=== PATIENT | male | born 1960 | race African-American/Black ===

== ENCOUNTER 2016-09-27 02:28 | Inpatient (IN) | payer OTHER ==
[2016-09-27] MEDS ORDERED: NORMAL SALINE 500 ML IV ONE (02:47)
[2016-09-27] MEDS ORDERED: MORPHINE SULFATE 10 MG/ML INJ IV ONE (02:48)
--- NOTE | 2016-09-27 02:53 | ER Document Report ---
ED General - General Chief Complaint: Shortness Of Breath Stated Complaint: SHORTNESS OF BREATH Time Seen by Provider: 09/27/16 02:41 Notes: Patient is a 56-year-old male who presents with complaint of a few days of pain throughout his back. He says is initially his left upper back but now the pain came on the way down into his lower back. He says it hurts to twist or turn or move. He does complain of some shortness of breath but says he is short of breath because it hurts to take in a deep breath. No abdominal pain. No chest pain. No fevers. No vomiting. No diarrhea. He does have history of chronic kidney disease. He is followed by Dr. Nam. His primary care doctor is Dr. Richards. He has never required dialysis. He has been outside mowing the yard but does not think he became overheated. TRAVEL OUTSIDE OF THE [place] IN LAST 30 DAYS: No - Related Data Allergies/Adverse Reactions: doxycycline Allergy (Verified 09/27/16 02:36) Past Medical History - Social History Smoking Status: Never Smoker Frequency of alcohol use: None Drug Abuse: None Family History: Reviewed & Not Pertinent - Past Medical History Cardiac Medical History: Reports: Hx Hypertension Pulmonary Medical History: Denies: Hx Tuberculosis Renal/ Medical History: Denies: Hx Peritoneal Dialysis GI Medical History: Reports: Hx Gastroesophageal Reflux Disease Musculoskeltal Medical History: Reports Hx Musculoskeletal Deformity - cyst left wrist Traumatic Medical History: Reports: Hx Fractures - right hand Past Surgical History: Denies: Hx Pacemaker - Immunizations Immunizations up to date: Yes Hx Diphtheria, Pertussis, Tetanus Vaccination: Yes Review of Systems - Review of Systems Notes: My Normal Review Basic REVIEW OF SYSTEMS: CONSTITUTIONAL : Denies fever, chills, or sweats. Denies recent illness. EENT: Denies eye, ear, throat, or mouth pain or symptoms. Denies nasal or sinus congestion. CARDIOVASCULAR: Denies chest pain. RESPIRATORY: Some splinting of breathing. GASTROINTESTINAL: Denies abdominal pain. Denies nausea, vomiting, or diarrhea. Denies constipation. Last BM: GENITOURINARY: Denies difficulty urinating, painful urination, burning, frequency, or blood in urine. MUSCULOSKELETAL: Back pain SKIN: Heat rash type rash on upper extremities and torso. NEUROLOGICAL: Denies altered mental status or loss of consciousness. Denies headache. Denies weakness or paralysis or loss of use of either side. Denies problems with gait or speech. Denies sensory or motor loss. ALL OTHER SYSTEMS REVIEWED AND NEGATIVE. Physical Exam - Vital signs Vitals: Temp Pulse Resp BP Pulse Ox 98.2 F 100 22 H 134/89 H 99 09/27/16 02:32 09/27/16 02:32 09/27/16 02:32 09/27/16 02:32 09/27/16 02:32 - Notes Notes: General Appearance: Well nourished, alert, cooperative, no acute distress, moderate obvious discomfort. Vitals: reviewed, See vital signs table. Head: no swelling or tenderness to the head Eyes: PERRL, EOMI, Conjuctiva clear Mouth: No decreasd moisture Neck: Supple, no neck tenderness, Lungs: No wheezing, No rales, No rhonci, No accessory muscle use, good air exchange bilaterally. Heart: Normal rate, Regular rythm, No murmur, no rub Abdomen: Normal BS, soft, No rigidity, No flank or abdominal tenderness to palpation. No guarding, no rebound, no abdominal masses, no organomegaly Back: Pain to palpation over bilateral thoracic and lumbar paraspinal musculature. Patient has worsening pain if he tries to twist or move. Extremities: strength 5/5 in all extremities, good pulses in all extremities, no swelling or tenderness in the extremities, no edema. Skin: Patient has several very tiny pustule vesicle type rash of her extremities and torso consistent with that of inflamed sweat glands such as seen with a heat rash. Neuro: speech clear, oriented x 3, normal affect, responds appropriately to questions. Course - Re-evaluation Re-evalutation: 09/27/16 06:04 Patient is feeling some improvement after the IV fluids. My concern is that he is already at stage IV kidney disease and his creatinine is much worse than it typically is. I have given IV fluids. I suspect this may be due to dehydration. His back pain is improving. I will give him some magnesium with his magnesium is only 1.6. Urinalysis negative. He has no signs of infection on exam or on laboratory evaluation. He only has a mild leukocytosis of 12. Patient agrees with thing in the hospital for further rehydration and recheck his kidney function to make sure it is improving. I did speak with his primary care physician, Dr. Richards, who agrees to admit the patient. Dictation of this chart was performed using voice recognition software; therefore, there may be some unintended grammatical errors. - Vital Signs Vital signs: Temp Pulse Resp BP Pulse Ox 98.2 F 100 20 152/88 H 100 09/27/16 02:36 09/27/16 02:48 09/27/16 05:01 09/27/16 05:07 09/27/16 05:07 - Laboratory Result Diagrams: 09/27/16 03:14 09/27/16 03:14 Laboratory results interpreted by me: 09/27/16 09/27/16 09/27/16 03:14 03:14 05:10 WBC 12.0 H RBC 3.73 L Hgb 10.8 L Hct 35.0 L MCHC 30.9 L Absolute Neutrophils 8.6 H Potassium 5.1 H Chloride 109 H Carbon Dioxide 19 L BUN 51 H Creatinine 4.63 H Est GFR ( Amer) 16 L Est GFR (Non-Af Amer) 13 L Glucose 132 H AST 16 L Creatine Kinase 204 H Urine Protein >=500 H - EKG Interpretation by Me Additional EKG results interpreted by me: 09/27/16 03:35 EKG is reviewed and interpreted by me. EKG shows normal sinus rhythm with a rate of [address] segment elevation or depression. No ischemic T-wave inversions. IN interval, QRS duration, QTc intervals are within normal range. Old EKG for comparison is from March 10, 2012. Discharge - Discharge Clinical Impression: Dehydration Back pain Qualifiers: Back pain location: thoracic back pain Chronicity: acute Back pain laterality: bilateral Qualified Code(s): M54.6 - Pain in thoracic spine Acute on chronic renal failure Qualifiers: Acute renal failure type: unspecified Chronic kidney disease stage: stage 4 ( severe) Qualified Code(s): N17.9 - Acute kidney failure, unspecified; N18.4 - Chronic kidney disease, stage 4 (severe) Condition: Stable Disposition: ADMITTED OBSERVATION Admitting Provider: Maurice Unit Admitted: Telemetry
[2016-09-27 03:26] LABS: ABSOLUTE BASOPHILS # (AUTO) 0.1 10^3/uL (0.0-0.2); ABSOLUTE EOSINOPHILS # (AUTO) 0.3 10^3/uL (0.0-0.6); ABSOLUTE NEUT (AUTO) 8.6 10^3/uL (1.7-8.2); BASOPHILS % (AUTO) 0.7 % (0-2); EOSINOPHILS % (AUTO) 2.2 % (0-6); HEMOGLOBIN 10.8 g/dL (13.5-17.0); HGB HCT DIFFERENCE -2.6; LYMPHOCYTES % (AUTO) 16.9 % (13-45); MEAN CORPUSCULAR HGB CONC 30.9 g/dL (32.0-36.0); MEAN CORPUSCULAR VOLUME 94 fl (80-97); MONOCYTES % (AUTO) 8.2 % (3-13); RED BLOOD COUNT 3.73 10^6/uL (4.35-5.55); RED CELL DISTRIBUTION WIDTH 13.2 % (11.5-14.0)
[2016-09-27 03:42] LABS: ALANINE AMINOTRANSFERASE 26 U/L (21-72); ALKALINE PHOSPHATASE 108 U/L (38-126); ANION GAP 14 (5-19); ASPARTATE AMINO TRANSFERASE 16 U/L (17-59); BILIRUBIN,DIRECT 0.3 mg/dL (0.0-0.4); BILIRUBIN,TOTAL 0.6 mg/dL (0.2-1.3); BLOOD UREA NITROGEN 51 mg/dL (7-20); CALCIUM 9.1 mg/dL (8.4-10.2); CARBON DIOXIDE 19 mmol/L (22-30); CHLORIDE 109 mmol/L (98-107); CREATINE KINASE 204 U/L (55-170); CREATININE RESULT 4.63 mg/dL (0.52-1.25); GLUCOSE 132 mg/dL (75-110); MAGNESIUM 1.6 mg/dL (1.6-2.3); POTASSIUM 5.1 mmol/L (3.6-5.0); SODIUM 141.5 mmol/L (137-145); TOTAL PROTEIN 7.5 g/dL (6.3-8.2)
--- NOTE | 2016-09-27 04:00 | RADIOLOGY REPORT (SQ) ---
EXAM DESCRIPTION: CHEST SINGLE VIEW COMPLETED DATE/TIME: 09/27/2016 3:46 am REASON FOR STUDY: dyspnea COMPARISON: 03/10/2012. EXAM PARAMETERS: NUMBER OF VIEWS: One view. TECHNIQUE: Single frontal radiographic view of the chest acquired. RADIATION DOSE: NA LIMITATIONS: None. FINDINGS: LUNGS AND PLEURA: No opacities, masses or pneumothorax. No pleural effusion. Moderate khurram g volumes. Small right basilar atelectasis or scar. MEDIASTINUM AND HILAR STRUCTURES: No masses. Contour normal. HEART AND VASCULAR STRUCTURES: Heart normal in size. Normal vasculature. BONES: No acute findings. HARDWARE: None in the chest. OTHER: No other significant finding. IMPRESSION: NO ACUTE RADIOGRAPHIC FINDING IN THE CHEST. TECHNICAL DOCUMENTATION: JOB ID: [id number]
[2016-09-27] MEDS ORDERED: MAGNESIUM SULFATE/D5W 100 ML IV ONE (05:05)
[2016-09-27] MEDS ORDERED: NORMAL SALINE 1000 ML 1,000 ML IV ONE (05:05)
[2016-09-27 05:31] LABS: APPEARANCE,URINE CLEAR; BILIRUBIN,URINE NEGATIVE (NEGATIVE); GLUCOSE, URINE NEGATIVE (NEGATIVE); KETONES,URINE NEGATIVE (NEGATIVE); LEUKOCYTE ESTERASE,URINE NEGATIVE (NEGATIVE); NITRITE,URINE NEGATIVE (NEGATIVE); PROTEIN,URINE >=500 mg/dL (NEGATIVE); URINE SPECIFIC GRAVITY 1.009; UROBILINOGEN,URINE NEGATIVE mg/dL (<2.0)
--- NOTE | 2016-09-27 07:25 | RADIOLOGY REPORT (SQ) ---
EXAM DESCRIPTION: CT ABD/PELVIS NO ORAL OR IV COMPLETED DATE/TIME: 09/27/2016 6:56 am REASON FOR STUDY: back pain/renal failure/r/o kidny stone COMPARISON: 10.07.09 TECHNIQUE: CT scan of the abdomen and pelvis performed without intravenous or oral contrast. Images reviewed with lung, soft tissue, and bone windows. Reconstructed coronal and sagittal MPR images revi ewed. All images stored on PACS. All CT scanners at this facility use dose modulation, iterative reconstruction, and/or weight based d osing when appropriate to reduce radiation dose to as low as reasonably achievable (ALARA). [facility]: Dose Right [facility]: CareDose [facility]: Dose Right [facility]: Teradose 4D [facility]: [employer] RADIATION DOSE: Up-to-date CT equipment and radiation dose reduction techniques were employed. CTDIv ol: 16.0 mGy. DLP: 913 mGy-cm.mGy. LIMITATIONS: None. FINDINGS: LOWER CHEST: Small atelectasis or scar bilateral lower lobes. NON-CONTRASTED LIVER, SPLEEN, ADRENALS: Evaluation limited by lack of IV contrast. No identified sign ificant masses. Punctate calcified hepatic granuloma. PANCREAS: No masses. No peripancreatic inflammatory changes. GALLBLADDER: No identified stones by CT criteria. No inflammatory changes to suggest cholecystitis. RIGHT KIDNEY AND URETER: No suspicious masses. Assessment limited by lack of IV contrast. No signif icant calcifications. No hydronephrosis or hydroureter. LEFT KIDNEY AND URETER: No suspicious masses. Assessment limited by lack of IV contrast. No signifi cant calcifications. No hydronephrosis or hydroureter. AORTA AND RETROPERITONEUM: No aneurysm. No retroperitoneal masses or adenopathy. Atherosclerosis. BOWEL AND PERITONEAL CAVITY: No obvious masses or inflammatory changes. No free fluid. APPENDIX: Normal. PELVIS, BLADDER, AND ABDOMINAL WALL:No abnormal masses. No free fluid. Bladder normal. BONES: Small to moderate desiccated disc bulges of the lower lumbar spine, 0.3 cm degenerative L5 ret rolisthesis, secondary [id number] bilateral L5 foraminal stenosis, and minimal anterior vertebr al wedging at the thoracolumbar junction. OTHER: No other significant finding. IMPRESSION: No acute findings. TECHNICAL DOCUMENTATION: JOB ID: [id number] Quality ID # [id number]: Final reports with documentation of one or more dose reduction techniques (e.g., Au tomated exposure control, adjustment of the mA and/or kV according to patient size, use of iterative reconstruction technique) 2010 [employer]- All Rights Reserved
--- NOTE | 2016-09-27 08:16 | EKG REPORT ---
SEVERITY:- NORMAL ECG - SINUS RHYTHM : Confirmed by: Buck Turpin MD 27-Sep-2016 08:15:49
--- NOTE | 2016-09-27 08:18 | PDOC H&P ---
History of Present Illness Admission Date/PCP: 09/27/16 06:21 JUDY RILEY MD Patient complains of: Back pain and shortness of the breath History of Present Illness: MARGE ORTEGA is a 56 year old male This is a 56-year-old male with a history of the hypertension and chronic kidney disease stage III and currently see a Dr. Nam was working outside on a TuesdayAnd the patient's for dehydration's and started developing some cramps in the back pain and the patient's rested on Tuesday but again Tuesday patient started developing more back pain and patient is not feeling well and also noticed some shortness of the breath and the chest pain. 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 Nam in the last creatinine according to the patient was around 3 Patient's currently denied any chest pain but still complains of pain in the back of the shoulder blade and feeling some short of breath . Patient's CT abdomen and pelvis was negative for any kidney stones Patient initial EKG chest x-ray is also negative Patient creatinine is 4.5 Past Medical History Cardiac Medical History: Reports: Hypertension Pulmonary Medical History: Denies: Tuberculosis Renal/ Medical History: Reports: Chronic Kidney Disease, Nephrolithiasis GI Medical History: Reports: Gastroesophageal Reflux Disease Past Surgical History Past Surgical History: Denies: Pacemaker Social History Smoking Status: Never Smoker Hx Recreational Drug Use: No Hx Prescription Drug Abuse: No Family History Family History: Reviewed & Not Pertinent Parental Family History Reviewed: Yes Children Family History Reviewed: Yes Sibling(s) Family History Reviewed.: Yes Medication/Allergy Allergies/Adverse Reactions: doxycycline Allergy (Verified 09/27/16 02:36) Review of Systems Constitutional: ABSENT: chills, fever(s), headache(s), weight gain, weight loss Eyes: ABSENT: visual disturbances Ears: ABSENT: hearing changes Cardiovascular: PRESENT: chest pain. ABSENT: dyspnea on exertion, edema, orthropnea, palpitations Respiratory: PRESENT: dyspnea. ABSENT: cough, hemoptysis Gastrointestinal: ABSENT: abdominal pain, constipation, diarrhea, hematemesis, hematochezia, nausea, vomiting Genitourinary: ABSENT: dysuria, hematuria Musculoskeletal: ABSENT: joint swelling Integumentary: ABSENT: rash, wounds Neurological: ABSENT: abnormal gait, abnormal speech, confusion, dizziness, focal weakness, syncope Psychiatric: ABSENT: anxiety, depression, homidical ideation, suicidal ideation Endocrine: ABSENT: cold intolerance, heat intolerance, menstrual abnormalities, polydipsia, polyuria Hematologic/Lymphatic: ABSENT: easy bleeding, easy bruising, lymphadenopathy Physical Exam Vital Signs: Temp Pulse Resp BP Pulse Ox 98.2 F 100 20 152/88 H 100 09/27/16 02:36 09/27/16 02:48 09/27/16 05:01 09/27/16 05:07 09/27/16 05:07 General appearance: PRESENT: no acute distress, well-developed, well-nourished Head exam: PRESENT: atraumatic, normocephalic Eye exam: PRESENT: conjunctiva pink, EOMI, PERRLA. ABSENT: scleral icterus Ear exam: PRESENT: normal external ear exam Mouth exam: PRESENT: moist, tongue midline Neck exam: PRESENT: full ROM. ABSENT: carotid bruit, JVD, lymphadenopathy, thyromegaly Respiratory exam: PRESENT: clear to auscultation richard Cardiovascular exam: PRESENT: RRR. ABSENT: diastolic murmur, rubs, systolic murmur Pulses: PRESENT: normal dorsalis pedis pul, +2 pedal pulses bilateral Vascular exam: PRESENT: normal capillary refill GI/Abdominal exam: PRESENT: normal bowel sounds, soft. ABSENT: distended, guarding, mass, organolmegaly, rebound, tenderness Rectal exam: PRESENT: deferred Neurological exam: PRESENT: alert, awake, oriented to person, oriented to place , oriented to time, oriented to situation, CN II-XII grossly intact. ABSENT: motor sensory deficit Psychiatric exam: PRESENT: appropriate affect, normal mood. ABSENT: homicidal ideation, suicidal ideation Skin exam: PRESENT: dry, intact, warm. ABSENT: cyanosis, rash Results Impressions: Abdomen/Pelvis CT 09/27/16 00:00 IMPRESSION: No acute findings. Chest X-Ray 09/27/16 03:19 IMPRESSION: NO ACUTE RADIOGRAPHIC FINDING IN THE CHEST. Assessment & Plan - Diagnosis (1) Acute on chronic renal failure Qualifiers: Acute renal failure type: unspecified Chronic kidney disease stage: stage 4 (severe) Qualified Code(s): N17.9 - Acute kidney failure, unspecified; N18.9 - Chronic kidney disease, unspecified Is this a current diagnosis for this admission?: YesPlan: Start the patient on IV fluid most likely underlying dehydration's (2) Shortness of breath Is this a current diagnosis for this admission?: YesPlan: Most likely due to the underlying back issues will get the CT of the chest and will check the pulse ox in the walking (3) Chest pain Qualifiers: Chest pain type: unspecified Qualified Code(s): R07.9 - Chest pain, unspecified Is this a current diagnosis for this admission?: YesPlan: Patient is complaining of chest pain when take a deep breath most likely underlying pluritic pain but will rule out any acute coronary syndromes (4) Hypertension Qualifiers: Hypertension type: essential hypertension Qualified Code(s): I10 - Essential (primary) hypertension Is this a current diagnosis for this admission?: YesPlan: Continues to current medications (5) Chronic kidney disease Qualifiers: Chronic kidney disease stage: stage 3 (moderate) Qualified Code(s): N18.3 - Chronic kidney disease, stage 3 (moderate) Is this a current diagnosis for this admission?: YesPlan: Patients follow outpatient Dr. 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 More discussed with the patient about all plan
--- NOTE | 2016-09-27 09:03 | RADIOLOGY REPORT (SQ) ---
EXAM DESCRIPTION: CT CHEST WITHOUT COMPLETED DATE/TIME: 09/27/2016 8:46 am REASON FOR STUDY: chest pain/sob COMPARISON: None. TECHNIQUE: CT scan performed of the chest without intravenous contrast. Images reviewed with lung, soft tissue and bone windows. Reconstructed coronal and sagittal MPR images reviewed. All images st ored on PACS. All CT scanners at this facility use dose modulation, iterative reconstruction, and/or weight based d osing when appropriate to reduce radiation dose to as low as reasonably achievable (ALARA). [facility]: Dose Right [facility]: CareDose [facility]: Dose Right [facility]: Teradose 4D [facility]: [employer] RADIATION DOSE: Up-to-date CT equipment and radiation dose reduction techniques were employed. CTDIv ol: 16.1 mGy. DLP: 627 mGy-cm. mGy. LIMITATIONS: No technical limitations. FINDINGS: LUNGS AND PLEURA: 3 x 6 mm nodule in the right upper lobe adjacent to the major fissure. No infiltrates or pneumothorax. Mild linear basilar atelectasis/scarring. No pleural effusions, yanet cifications. HILAR AND MEDIASTINAL STRUCTURES: No identified masses or abnormal nodes. No obvious aneurysm. HEART AND VASCULAR STRUCTURES: No aneurysm. No pericardial effusion. UPPER ABDOMEN: No significant findings. Limited exam. THYROID AND OTHER SOFT TISSUES: No masses. No adenopathy. BONES: No significant finding. HARDWARE: None in the chest. OTHER: No other significant findings. IMPRESSION: SMALL NODULE IN THE RIGHT UPPER LOBE. FOLLOW-UP CLINICALLY INDICATED. NO ACUTE FIND ING ON NON-CONTRASTED CHEST CT. COMMENT: [place] CRITERIA FOR FOLLOW-UP OF PULMONARY NODULES Incidentally detected new nodules in persons 35 or older. HIGH RISK: History of smoking or other known risk factors. 6-8mm single solid nodule: LOW RISK: CT 6-12 mo; then consider CT 18-24 mo. HIGH RISK: CT 6-12 mo; th en CT 18-24 mo. TECHNICAL DOCUMENTATION: JOB ID: [id number] Quality ID # [id number]: Final reports with documentation of one or more dose reduction techniques (e.g., Au tomated exposure control, adjustment of the mA and/or kV according to patient size, use of iterative reconstruction technique) 2010 [employer]- All Rights Reserved
[2016-09-27] MEDS: OXYCODONE-ACETAMINOPHEN 5-325 MG TABLET PO PRN ×3 (09:47→22:34)
[2016-09-27] MEDS: ENOXAPARIN SODIUM INJ 30 MG/0.3 ML DISP.SYRIN SUBCUT SCH (09:49)
[2016-09-27 10:03] LABS: CREATINE KINASE MB 0.81 ng/mL (<4.55)
[2016-09-27 10:25] LABS: TROPONIN I < 0.012 ng/mL
--- NOTE | 2016-09-27 10:39 | RADIOLOGY REPORT (SQ) ---
EXAM DESCRIPTION: L SPINE WHOLE COMPLETED DATE/TIME: 09/27/2016 10:18 am REASON FOR STUDY: back pain COMPARISON: CT dated 09/27/2016. NUMBER OF VIEWS: Five views including obliques. TECHNIQUE: AP, lateral, oblique, and sacral radiographic images acquired of the lumbar spine. LIMITATIONS: None. FINDINGS: MINERALIZATION: Normal. SEGMENTATION: Normal. No transitional anatomy. ALIGNMENT: Normal. VERTEBRAE: Maintained height. No fracture or worrisome bone lesion. DISCS: Preserved height. Small anterior osteophytes. No significant osteophytes or end plate irregu larity. POSTERIOR ELEMENTS: Pedicles and facets are intact. No pars defect or posterior arch defects. HARDWARE: None in the spine. Metallic object in the right pelvic region, presumably external to the patient as there is no corresponding finding on the recent CT. PARASPINAL SOFT TISSUES: Normal. PELVIS: Intact as visualized. No fractures or worrisome bone lesions. SI joints intact. OTHER: No other significant finding. IMPRESSION: MILD DEGENERATIVE CHANGES. NO APPARENT ACUTE FINDINGS. TECHNICAL DOCUMENTATION: JOB ID: [id number]- All Rights Reserved
[2016-09-27 14:42] LABS: CREATINE KINASE MB 0.87 ng/mL (<4.55)
[2016-09-27 14:50] LABS: TROPONIN I < 0.012 ng/mL
[2016-09-27] MEDS: LANSOPRAZOLE 15 MG TAB.RAP.DR PO SCH (16:09)
--- NOTE | 2016-09-27 19:08 | PDOC CONSULTATION ---
Consultation Consult Date: 09/27/16 Consult reason:: MICHAEL, CKD 4 History of Present Illness Admission Date/PCP: 09/27/16 06:21 JUDY RILEY MD History of Present Illness: MARGE ORTEGA is a 56 year old male with a history of the hypertension and chronic kidney disease stage 4 with a base creatinine of around 4 was admitted with history of shortness of breath and pain around the back between the shoulder blades. He gives a history of walking outside in his yard cutting grass and doing other yard work when he developed progressive shortness of breath on Tuesday. He feels also weak. He slept through Tuesday woke up on Tuesday and felt that he was doing fairly stable and went on to do more work. However Tuesday he was getting more difficult to breathe as well as the pain was getting worse. He describes the pain as sharp and pleuritic in nature and was worse with taking a deep breath or twisting his body. He was drinking plenty of fluids and had a good urine output. He denies any history of fever chills. He was not taking any statins or any [id number] products. Evaluations revealed that he has had mild worsening of his CKD of this with a prescription of the renal numbers. He has had noncontrasted CT of his chest and abdomen which was unremarkable. Chest x-ray was also unremarkable. He continues to have pleuritic chest pain and as long as he is laying still he is doing okay. The same goes with the shortness of breath. He denies any history of pain or swelling of his legs. Appetite is good. No abdominal pains. Past Medical History Cardiac Medical History: Reports: Hypertension-primary Pulmonary Medical History: Denies: Tuberculosis Renal/ Medical History: Reports: Chronic Kidney Disease Stage IV, Nephrolithiasis, Renal Osteodystropy GI Medical History: Reports: Gastroesophageal Reflux Disease Musculoskeltal Medical History: Reports: Gout Psychiatric Medical History: Denies: Depression Past Surgical History Past Surgical History: Denies: Pacemaker Social History Smoking Status: Never Smoker Frequency of Alcohol Use: None Hx Recreational Drug Use: No Hx Prescription Drug Abuse: No - Advance Directive Resuscitation Status: Full Code Family History Parental Family History Reviewed: Yes - negative for ESRD Children Family History Reviewed: No Sibling(s) Family History Reviewed.: No Medication/Allergy Home Medications: Amlodipine Besylate [Norvasc 5 mg Tablet] 5 mg PO DAILY 09/27/16 Calcitriol [Rocaltrol 0.25 mcg Capsule] 0.25 mcg PO MOWEFR@0800 09/27/16 Febuxostat [Uloric 80 mg Tablet] 80 mg PO DAILY 09/27/16 Metoprolol Tartrate [Lopressor 50 mg Tablet] 50 mg PO Q12 09/27/16 Allergies/Adverse Reactions: doxycycline Allergy (Verified 09/27/16 02:36) Review of Systems Review of Systems: Constitutional: [PRESENT: as per HPI. ABSENT: chills, fever(s), headache(s), weight gain, weight loss] Eyes: [ABSENT: visual disturbances] Ears: [ABSENT: hearing changes] Cardiovascular: [ABSENT: edema, orthropnea, palpitations] Respiratory: [ABSENT: cough, hemoptysis] Gastrointestinal: [ABSENT: abdominal pain, constipation, diarrhea, hematemesis, hematochezia, nausea, vomiting] Genitourinary: [ABSENT: dysuria, hematuria] Musculoskeletal: [ABSENT: joint swelling] Integumentary: [ABSENT: rash, wounds] Neurological: [ABSENT: abnormal gait, abnormal speech, confusion, dizziness, focal weakness, syncope] Psychiatric: [ABSENT: anxiety, depression, homicidal ideation, suicidal ideation ] Endocrine: [ABSENT: cold intolerance, heat intolerance, polydipsia, polyuria] Hematologic/Lymphatic: [ABSENT: easy bleeding, easy bruising, lymphadenopathy] Physical Exam Vital Signs: Temp Pulse Resp BP Pulse Ox 98.5 F 91 18 154/98 H 98 09/27/16 16:34 09/27/16 16:34 09/27/16 16:34 09/27/16 16:34 09/27/16 16:34 Intake & Output 09/26/16 09/27/16 09/28/16 06:59 06:59 06:59 Intake Total 1086 Balance 1086 General appearance: PRESENT: no acute distress Eye exam: PRESENT: conjunctiva pink, EOMI, PERRLA Ear exam: PRESENT: normal external ear exam Mouth exam: PRESENT: moist, neck supple Neck exam: ABSENT: lymphadenopathy, meningismus, tenderness, thyromegaly, tracheal deviation Respiratory exam: PRESENT: clear to auscultation richard. ABSENT: crackles, rhonchi Cardiovascular exam: PRESENT: +S1, +S2, systolic murmur GI/Abdominal exam: PRESENT: normal bowel sounds, soft. ABSENT: organomegaly, tenderness Extremities exam: ABSENT: pedal edema Neurological exam: PRESENT: alert, awake, oriented to person, oriented to place , oriented to time Skin exam: ABSENT: erythema, mottled, rash Results Laboratory Results: 09/27/16 09/27/16 09/27/16 09:05 09:05 13:55 Creatine Kinase 183 H 151 CK-MB (CK-2) 0.81 Troponin I < 0.012 09/27/16 13:55 Creatine Kinase CK-MB (CK-2) 0.87 Troponin I < 0.012 Impressions: Abdomen/Pelvis CT 09/27/16 00:00 IMPRESSION: No acute findings. Chest CT 09/27/16 00:00 IMPRESSION: SMALL NODULE IN THE RIGHT UPPER LOBE. FOLLOW-UP CLINICALLY INDICATED. NO ACUTE FINDING ON NON-CONTRASTED CHEST CT. Lumbar Spine X-Ray 09/27/16 00:00 IMPRESSION: MILD DEGENERATIVE CHANGES. NO APPARENT ACUTE FINDINGS. Chest X-Ray 09/27/16 03:19 IMPRESSION: NO ACUTE RADIOGRAPHIC FINDING IN THE CHEST. Assessment & Plan - Diagnosis (1) CKD (chronic kidney disease) stage 4, GFR 15-29 ml/min Plan: Patient is got slight worsening of his CKD stage IV with the specimen renal numbers. Clinically he seems to be on the dry side with evidences to indicate may be early/mild rhabdomyolysis. Patient has been begun on IV fluids which is what I would continue. CT of the abdomen and pelvis does not show any obstructive nephropathy. (2) MICHAEL (acute kidney injury) Plan: Mild. Should respond to IV fluids. Monitor. (3) Back pain Qualifiers: Back pain location: thoracic back pain Chronicity: acute Back pain laterality: bilateral Qualified Code(s): M54.6 - Pain in thoracic spine Is this a current diagnosis for this admission?: YesPlan: Pain between the shoulder blades. This along with shortness of breath is concerning for pulmonary embolism. Since he had a noncontrasted CT of his chest I am going to order a VQ scan. Discussed with the patient and the treating nurse. (4) Hypertension Qualifiers: Hypertension type: essential hypertension Qualified Code(s): I10 - Essential (primary) hypertension Is this a current diagnosis for this admission?: YesPlan: Given the stable. Monitor. (5) Shortness of breath Is this a current diagnosis for this admission?: YesPlan: As mentioned earlier. We will get a VQ scan which I am ordering.
[2016-09-27] MEDS: ACETAMINOPHEN 325 MG TABLET PO PRN (21:08)
[2016-09-27] MEDS: METOPROLOL TARTRATE 50 MG TABLET PO SCH (21:18)
[2016-09-27] MEDS: NORMAL SALINE 1000 ML 1,000 ML IV PRN (21:46)
--- NOTE | 2016-09-27 22:00 | RADIOLOGY REPORT (SQ) ---
EXAM DESCRIPTION: NM LUNG VENT/PERF SCAN COMPLETED DATE/TIME: 09/27/2016 9:01 pm REASON FOR STUDY: CHEST PAIN, DYSPNEA COMPARISON: None. RADIONUCLIDE AND DOSE: 4.97 millicuries TC-99m MAA Intravenous 29.3 millicuries TC-99m DTPA Inhaled aerosol TECHNIQUE: Eight views of the lungs acquired post ventilation of DTPA aerosol. Eight matching views of the lungs acquired following injection of MAA. LIMITATIONS: None. FINDINGS: VENTILATION: Symmetric and homogeneous distribution of DTPA aerosol during ventilatory pha se. No significant areas of photopenia. PERFUSION: Perfusion images with normal homogenous activity and no wedge-shaped or segmental defects. No ventilation-perfusion mismatches. OTHER: No other significant finding. IMPRESSION: NORMAL VENTILATION-PERFUSION LUNG SCAN. NEGATIVE FOR PULMONARY EMBOLI. TECHNICAL DOCUMENTATION: JOB ID: [id number] [employer]- All Rights Reserved
[2016-09-27 22:03] LABS: CREATINE KINASE MB 0.95 ng/mL (<4.55)
[2016-09-27 22:09] LABS: TROPONIN I < 0.012 ng/mL
[2016-09-27] MEDS: SIMETHICONE 80 MG TAB.CHEW PO PRN (22:34)
[2016-09-28 04:40] LABS: ABSOLUTE BASOPHILS # (AUTO) 0.1 10^3/uL (0.0-0.2); ABSOLUTE EOSINOPHILS # (AUTO) 0.2 10^3/uL (0.0-0.6); ABSOLUTE LYMPHOCYTES (AUTO) 2.3 10^3/uL (0.5-4.7); ABSOLUTE MONOCYTES (AUTO) 0.9 10^3/uL (0.1-1.4); BASOPHILS % (AUTO) 0.7 % (0-2); EOSINOPHILS % (AUTO) 2.2 % (0-6); HEMATOCRIT 30.9 % (37.9-51.0); HGB HCT DIFFERENCE -0.9; LYMPHOCYTES % (AUTO) 24.5 % (13-45); MEAN CORPUSCULAR HEMOGLOBIN 29.7 pg (27.0-33.4); MEAN CORPUSCULAR HGB CONC 32.3 g/dL (32.0-36.0); MEAN CORPUSCULAR VOLUME 92 fl (80-97); MONOCYTES % (AUTO) 9.4 % (3-13); RED BLOOD COUNT 3.35 10^6/uL (4.35-5.55); RED CELL DISTRIBUTION WIDTH 12.8 % (11.5-14.0); SEGMENTED NEUTROPHILS % (AUTO) 63.2 % (42-78); WHITE BLOOD COUNT 9.5 10^3/uL (4.0-10.5)
[2016-09-28 04:50] LABS: ALANINE AMINOTRANSFERASE 22 U/L (21-72); ALBUMIN 3.4 g/dL (3.5-5.0); ALKALINE PHOSPHATASE 92 U/L (38-126); ANION GAP 12 (5-19); ASPARTATE AMINO TRANSFERASE 13 U/L (17-59); BILIRUBIN,DIRECT 0.2 mg/dL (0.0-0.4); BILIRUBIN,TOTAL 0.6 mg/dL (0.2-1.3); BLOOD UREA NITROGEN 45 mg/dL (7-20); CALCIUM 8.9 mg/dL (8.4-10.2); CARBON DIOXIDE 17 mmol/L (22-30); CHLORIDE 112 mmol/L (98-107); CREATININE RESULT 3.92 mg/dL (0.52-1.25); GLUCOSE 92 mg/dL (75-110); POTASSIUM 5.4 mmol/L (3.6-5.0); SODIUM 141.4 mmol/L (137-145); TOTAL PROTEIN 6.7 g/dL (6.3-8.2)
[2016-09-28] MEDS: LANSOPRAZOLE 15 MG TAB.RAP.DR PO SCH ×2 (05:12→18:26)
[2016-09-28] MEDS: ACETAMINOPHEN 325 MG TABLET PO PRN ×3 (05:58→19:42)
--- NOTE | 2016-09-28 08:39 | PDOC PROGRESS REPORT ---
Subjective Progress Note for:: 09/28/16 Subjective:: Patient is feeling much better this morning. Patient's denied any chest pain denied any shortness of the breath.Patient CT of the chest and abdomen and pelvis was negative for any acute finding. Patient have a VQ scan was done which is negative for any acute PE Patient CT abdomen and pelvis so some patient have a some definitely some disc disease and degenerative arthritis of the thoracolumbar spine Patient seen by the nephrology and kidney function is getting better Physical Exam Vital Signs: Temp Pulse Resp BP Pulse Ox 98.5 F 72 20 145/80 H 98 09/28/16 03:57 09/28/16 07:00 09/28/16 03:57 09/28/16 03:57 09/28/16 03:57 Intake & Output 09/27/16 09/28/16 09/29/16 06:59 06:59 06:59 Intake Total 2108 Balance 210 Weight 118.7 kg General appearance: PRESENT: no acute distress, well-developed, well-nourished Head exam: PRESENT: atraumatic, normocephalic Eye exam: PRESENT: conjunctiva pink, EOMI, PERRLA. ABSENT: scleral icterus Ear exam: PRESENT: normal external ear exam Mouth exam: PRESENT: moist, tongue midline Neck exam: PRESENT: full ROM. ABSENT: carotid bruit, JVD, lymphadenopathy, thyromegaly Respiratory exam: PRESENT: clear to auscultation richard Cardiovascular exam: PRESENT: RRR. ABSENT: diastolic murmur, rubs, systolic murmur Pulses: PRESENT: normal dorsalis pedis pul, +2 pedal pulses bilateral Vascular exam: PRESENT: normal capillary refill GI/Abdominal exam: PRESENT: normal bowel sounds, soft. ABSENT: distended, guarding, mass, organolmegaly, rebound, tenderness Rectal exam: PRESENT: deferred Neurological exam: PRESENT: alert, awake, oriented to person, oriented to place , oriented to time, oriented to situation, CN II-XII grossly intact. ABSENT: motor sensory deficit Psychiatric exam: PRESENT: appropriate affect, normal mood. ABSENT: homicidal ideation, suicidal ideation Skin exam: PRESENT: dry, intact, warm. ABSENT: cyanosis, rash Results Laboratory Results: 09/28/16 03:55 09/28/16 03:55 09/28/16 09/28/16 03:55 03:55 WBC 9.5 RBC 3.35 L Hgb 10.0 L Hct 30.9 L MCV 92 MCH 29.7 MCHC 32.3 RDW 12.8 Plt Count 205 Seg Neutrophils % 63.2 Lymphocytes % 24.5 Monocytes % 9.4 Eosinophils % 2.2 Basophils % 0.7 Absolute Neutrophils 6.0 Absolute Lymphocytes 2.3 Absolute Monocytes 0.9 Absolute Eosinophils 0.2 Absolute Basophils 0.1 Sodium 141.4 Potassium 5.4 H Chloride 112 H Carbon Dioxide 17 L Anion Gap 12 BUN 45 H Creatinine 3.92 H Est GFR ( Amer) 19 L Est GFR (Non-Af Amer) 16 L Glucose 92 Calcium 8.9 Total Bilirubin 0.6 AST 13 L ALT 22 Alkaline Phosphatase 92 Total Protein 6.7 Albumin 3.4 L 09/27/16 09/27/16 09/27/16 09:05 09:05 13:55 Creatine Kinase 183 H 151 CK-MB (CK-2) 0.81 Troponin I < 0.012 09/27/16 09/27/16 09/27/16 13:55 21:27 21:27 Creatine Kinase 164 CK-MB (CK-2) 0.87 0.95 Troponin I < 0.012 < 0.012 Impressions: Abdomen/Pelvis CT 09/27/16 00:00 IMPRESSION: No acute findings. Chest CT 09/27/16 00:00 IMPRESSION: SMALL NODULE IN THE RIGHT UPPER LOBE. FOLLOW-UP CLINICALLY INDICATED. NO ACUTE FINDING ON NON-CONTRASTED CHEST CT. Lumbar Spine X-Ray 09/27/16 00:00 IMPRESSION: MILD DEGENERATIVE CHANGES. NO APPARENT ACUTE FINDINGS. Lung Scan-VQ MT 09/27/16 00:00 IMPRESSION: NORMAL VENTILATION-PERFUSION LUNG SCAN. NEGATIVE FOR PULMONARY EMBOLI. Chest X-Ray 09/27/16 03:19 IMPRESSION: NO ACUTE RADIOGRAPHIC FINDING IN THE CHEST. Assessment & Plan - Diagnosis (1) Acute on chronic renal failure Qualifiers: Acute renal failure type: unspecified Chronic kidney disease stage: stage 4 (severe) Qualified Code(s): N17.9 - Acute kidney failure, unspecified; N18.9 - Chronic kidney disease, unspecified Is this a current diagnosis for this admission?: YesPlan: Continues to IV fluidFollow with the nephrology (2) Shortness of breath Is this a current diagnosis for this admission?: YesPlan: Most likely pleuritic currently better (3) Chest pain Qualifiers: Chest pain type: unspecified Qualified Code(s): R07.9 - Chest pain, unspecified Is this a current diagnosis for this admission?: YesPlan: All cardiac workup is negative (4) Hypertension Qualifiers: Hypertension type: essential hypertension Qualified Code(s): I10 - Essential (primary) hypertension Is this a current diagnosis for this admission?: YesPlan: Continues to current medications (5) Chronic kidney disease Qualifiers: Chronic kidney disease stage: stage 3 (moderate) Qualified Code(s): N18.3 - Chronic kidney disease, stage 3 (moderate) Is this a current diagnosis for this admission?: YesPlan: Patients follow outpatient Dr. Nam (6) Back pain Qualifiers: Back pain location: thoracic back pain Chronicity: acute Back pain laterality: bilateral Qualified Code(s): M54.6 - Pain in thoracic spine Is this a current diagnosis for this admission?: YesPlan: We will order the MRI of the L-spine and T-spine (7) Dehydration Is this a current diagnosis for this admission?: YesPlan: Continues to IV fluid - Time Time Spent with patient: 15-24 minutes Medications reviewed and adjusted accordingly: Yes Anticipated discharge: Home Within: Other - Inpatient Certification Medical Necessity: Need Close Monitoring Due to Risk of Patient Decompensation, Need For IV Fluids Post Hospital Care: D/C Radiator Core Tester Documentation - Plan Summary Plan Summary: Continues to current medications will get the MRI and follow with the nephrology
[2016-09-28 09:02] LABS: APPEARANCE,URINE CLEAR; BILIRUBIN,URINE NEGATIVE (NEGATIVE); GLUCOSE, URINE NEGATIVE (NEGATIVE); KETONES,URINE NEGATIVE (NEGATIVE); LEUKOCYTE ESTERASE,URINE NEGATIVE (NEGATIVE); NITRITE,URINE NEGATIVE (NEGATIVE); PROTEIN,URINE 100 mg/dL (NEGATIVE); URINE SPECIFIC GRAVITY 1.008; UROBILINOGEN,URINE NEGATIVE mg/dL (<2.0)
[2016-09-28] MEDS: AMLODIPINE BESYLATE 5 MG TABLET PO SCH (09:37)
[2016-09-28] MEDS: SODIUM BICARBONATE 650 MG TABLET PO SCH ×2 (09:37→21:47)
[2016-09-28] MEDS: METOPROLOL TARTRATE 50 MG TABLET PO SCH ×2 (09:37→21:47)
[2016-09-28] MEDS: FEBUXOSTAT 80 MG TABLET PO SCH (09:37)
[2016-09-28] MEDS: ENOXAPARIN SODIUM INJ 30 MG/0.3 ML DISP.SYRIN SUBCUT SCH (09:38)
--- NOTE | 2016-09-28 12:25 | PDOC PROGRESS REPORT ---
Subjective Progress Note for:: 09/28/16 Subjective:: Patient seen in the hospital today. He is feeling back to baseline. He denies any history of chest pain shortness of breath. His VQ scan yesterday was negative. Physical Exam Vital Signs: Temp Pulse Resp BP Pulse Ox 97.9 F 72 18 160/83 H 98 09/28/16 07:37 09/28/16 07:37 09/28/16 07:37 09/28/16 07:37 09/28/16 07:37 Intake & Output 09/27/16 09/28/16 09/29/16 06:59 06:59 06:59 Intake Total 2109 Balance 2109 Weight 118.7 kg General appearance: PRESENT: no acute distress Respiratory exam: PRESENT: clear to auscultation richard. ABSENT: crackles, rhonchi Cardiovascular exam: PRESENT: +S1, +S2, systolic murmur GI/Abdominal exam: PRESENT: normal bowel sounds, soft. ABSENT: organomegaly, tenderness Results Laboratory Results: 09/28/16 03:55 09/28/16 03:55 09/28/16 09/28/16 09/28/16 03:55 03:55 08:30 WBC 9.5 RBC 3.35 L Hgb 10.0 L Hct 30.9 L MCV 92 MCH 29.7 MCHC 32.3 RDW 12.8 Plt Count 205 Seg Neutrophils % 63.2 Lymphocytes % 24.5 Monocytes % 9.4 Eosinophils % 2.2 Basophils % 0.7 Absolute Neutrophils 6.0 Absolute Lymphocytes 2.3 Absolute Monocytes 0.9 Absolute Eosinophils 0.2 Absolute Basophils 0.1 Sodium 141.4 Potassium 5.4 H Chloride 112 H Carbon Dioxide 17 L Anion Gap 12 BUN 45 H Creatinine 3.92 H Est GFR ( Amer) 19 L Est GFR (Non-Af Amer) 16 L Glucose 92 Calcium 8.9 Total Bilirubin 0.6 AST 13 L ALT 22 Alkaline Phosphatase 92 Total Protein 6.7 Albumin 3.4 L Urine Color STRAW Urine Appearance CLEAR Urine pH 5.0 Ur Specific [place] 1.008 Urine Protein 100 H Urine Glucose (UA) NEGATIVE Urine Ketones NEGATIVE Urine Blood SMALL H Urine Nitrite NEGATIVE Ur Leukocyte Esterase NEGATIVE Urine WBC (Auto) 0 Urine RBC (Auto) 0 09/27/16 09/27/16 09/27/16 09:05 09:05 13:55 Creatine Kinase 183 H 151 CK-MB (CK-2) 0.81 Troponin I < 0.012 09/27/16 09/27/16 09/27/16 13:55 21:27 21:27 Creatine Kinase 164 CK-MB (CK-2) 0.87 0.95 Troponin I < 0.012 < 0.012 Impressions: Abdomen/Pelvis CT 09/27/16 00:00 IMPRESSION: No acute findings. Chest CT 09/27/16 00:00 IMPRESSION: SMALL NODULE IN THE RIGHT UPPER LOBE. FOLLOW-UP CLINICALLY INDICATED. NO ACUTE FINDING ON NON-CONTRASTED CHEST CT. Lumbar Spine X-Ray 09/27/16 00:00 IMPRESSION: MILD DEGENERATIVE CHANGES. NO APPARENT ACUTE FINDINGS. Lung Scan-VQ NM 09/27/16 00:00 IMPRESSION: NORMAL VENTILATION-PERFUSION LUNG SCAN. NEGATIVE FOR PULMONARY EMBOLI. Chest X-Ray 09/27/16 03:19 IMPRESSION: NO ACUTE RADIOGRAPHIC FINDING IN THE CHEST. Assessment & Plan - Diagnosis (1) CKD (chronic kidney disease) stage 4, GFR 15-29 ml/min Plan: Patient is got slight worsening of his CKD stage IV with the specimen renal numbers. Clinically he seems to be on the dry side with evidences to indicate may be early/mild rhabdomyolysis. He has responded very well to IV fluid resuscitation. Renal numbers are back to baseline CKD stage IV as his last renal creatinine was 4.2 in my office in early August. (2) MICHAEL (acute kidney injury) Plan: Resolved and stable. Diagnosis is likely dehydration/mild acute rhabdomyolysis. (3) Back pain Qualifiers: Back pain location: thoracic back pain Chronicity: acute Back pain laterality: bilateral Qualified Code(s): M54.6 - Pain in thoracic spine Is this a current diagnosis for this admission?: YesPlan: As per Dr. Richards (4) Hypertension Qualifiers: Hypertension type: essential hypertension Qualified Code(s): I10 - Essential (primary) hypertension Is this a current diagnosis for this admission?: Yes (5) Shortness of breath Is this a current diagnosis for this admission?: Yes (6) Hyperkalemia Plan: Advised on diet. Monitor. Continue fluids.
[2016-09-28] MEDS: NORMAL SALINE 1000 ML 1,000 ML IV PRN (12:39)
--- NOTE | 2016-09-28 18:58 | RADIOLOGY REPORT (SQ) ---
EXAM DESCRIPTION: MRI THORACIC SPINE WITHOUT COMPLETED DATE/TIME: 09/28/2016 6:45 pm REASON FOR STUDY: back pain COMPARISON: None. TECHNIQUE: Sagittal and Axial imaging includes T1, T2, STIR and gradient echo sequences. LIMITATIONS: None. FINDINGS: LOCALIZER: No worrisome findings. ALIGNMENT: Normal. VERTEBRAE: Intact. BONE MARROW: Normal. No marrow replacement or reactive changes. HARDWARE: None in the spine. CORD: Normal in size and signal intensity. SOFT TISSUES: No soft tissue masses. THORACIC DISCS T1-T12: No significant spinal stenosis or exit foraminal stenosis. LOWER CERVICAL: Incompletely imaged. No significant spinal stenosis or exit foraminal stenosis. UPPER LUMBAR: Incompletely imaged. No significant spinal stenosis or exit foraminal stenosis. OTHER: No other significant finding. IMPRESSION: No significant findings. TECHNICAL DOCUMENTATION: JOB ID: [id number] [employer]- All Rights Reserved
[2016-09-28] MEDS: SIMETHICONE 80 MG TAB.CHEW PO PRN (19:42)
[2016-09-29] MEDS: LANSOPRAZOLE 15 MG TAB.RAP.DR PO SCH (05:35)
[2016-09-29 06:26] LABS: ABSOLUTE BASOPHILS # (AUTO) 0.1 10^3/uL (0.0-0.2); ABSOLUTE EOSINOPHILS # (AUTO) 0.3 10^3/uL (0.0-0.6); ABSOLUTE LYMPHOCYTES (AUTO) 1.7 10^3/uL (0.5-4.7); ABSOLUTE MONOCYTES (AUTO) 0.7 10^3/uL (0.1-1.4); ABSOLUTE NEUT (AUTO) 5.6 10^3/uL (1.7-8.2); BASOPHILS % (AUTO) 0.6 % (0-2); EOSINOPHILS % (AUTO) 3.6 % (0-6); HEMATOCRIT 32.3 % (37.9-51.0); HEMOGLOBIN 10.4 g/dL (13.5-17.0); HGB HCT DIFFERENCE -1.1; LYMPHOCYTES % (AUTO) 20.7 % (13-45); MEAN CORPUSCULAR HEMOGLOBIN 29.8 pg (27.0-33.4); MEAN CORPUSCULAR HGB CONC 32.2 g/dL (32.0-36.0); MEAN CORPUSCULAR VOLUME 93 fl (80-97); RED BLOOD COUNT 3.49 10^6/uL (4.35-5.55); RED CELL DISTRIBUTION WIDTH 12.6 % (11.5-14.0); SEGMENTED NEUTROPHILS % (AUTO) 67.1 % (42-78); WHITE BLOOD COUNT 8.4 10^3/uL (4.0-10.5)
[2016-09-29 06:48] LABS: ANION GAP 13 (5-19); BLOOD UREA NITROGEN 44 mg/dL (7-20); CARBON DIOXIDE 18 mmol/L (22-30); CHLORIDE 112 mmol/L (98-107); CREATININE RESULT 3.92 mg/dL (0.52-1.25); GLUCOSE 92 mg/dL (75-110); POTASSIUM 5.1 mmol/L (3.6-5.0); SODIUM 142.9 mmol/L (137-145)
[2016-09-29] MEDS ORDERED: CALCITRIOL 0.25 MCG CAPSULE PO SCH (08:00)
[2016-09-29 08:45] VITALS: BP 153/93
[2016-09-29] MEDS: METOPROLOL TARTRATE 50 MG TABLET PO SCH (10:07)
[2016-09-29] MEDS: SODIUM BICARBONATE 650 MG TABLET PO SCH (10:07)
[2016-09-29] MEDS: AMLODIPINE BESYLATE 5 MG TABLET PO SCH (10:07)
[2016-09-29] MEDS: FEBUXOSTAT 80 MG TABLET PO SCH (10:10)
[2016-09-29] MEDS: ENOXAPARIN SODIUM INJ 30 MG/0.3 ML DISP.SYRIN SUBCUT SCH (10:10)
[2016-09-29 16:39] LABS: A/G RATIO 0.9 (0.7-1.7); ALPHA-1-GLOBULIN 2 0.3 g/dL (0.0-0.4); GAMMA GLOBULIN 1.1 g/dL (0.4-1.8); PROTEIN TOTAL SERUM 6.3 g/dL (6.0-8.5)
--- NOTE | 2016-09-29 16:46 | PDOC DISCHARGE SUMMARY ---
General - Admit/Disc Date/PCP Admission Date/Primary Care Provider: 09/27/16 06:21 JUDY RILEY MD Discharge Date: 09/29/16 - Discharge Diagnosis (1) Acute on chronic renal failure Is this a current diagnosis for this admission?: YesSummary: Currently on stable (2) Shortness of breath Is this a current diagnosis for this admission?: YesSummary: Patient's VQ scan is negative and CT of the chest is all negative and all cardiac workup is negative and patients denied any shortness of the breath (3) Chest pain Is this a current diagnosis for this admission?: YesSummary: All workup is negative follow outpatient (4) Hypertension Is this a current diagnosis for this admission?: YesSummary: Will increase the Norvasc 5 mg twice a day (5) Chronic kidney disease Is this a current diagnosis for this admission?: YesSummary: Creatinine is 3.[address] Nam all stable (6) Back pain Is this a current diagnosis for this admission?: YesSummary: Patient's currently denied any pain if is persistent pain need MRI of the LS spine (7) Dehydration Is this a current diagnosis for this admission?: YesSummary: Currently all resolved - Additional Information Resuscitation Status: Full Code Discharge Diet: Cardiac Discharge Activity: Activity As Tolerated Home Medications: Amlodipine Besylate [Norvasc 5 mg Tablet] 5 mg PO DAILY 09/27/16 Calcitriol [Rocaltrol 0.25 mcg Capsule] 0.25 mcg PO MOWEFR@0800 09/27/16 Febuxostat [Uloric 80 mg Tablet] 80 mg PO DAILY 09/27/16 Metoprolol Tartrate [Lopressor 50 mg Tablet] 50 mg PO Q12 09/27/16 Amlodipine Besylate [Norvasc 5 mg Tablet] 5 mg PO BID #60 tablet 09/29/16 Sodium Bicarbonate [Sodium Bicarbonate 650 mg Tablet] 650 mg PO Q12 #60 tablet 09/29/16 History of Present Illness History of Present Illness: MARGE ORTEGA is a 56 year old male This is a 56-year-old male with a history of the hypertension and chronic kidney disease stage III and currently see a Dr. Nam was working outside on a TuesdayAnd the patient's for dehydration's and started developing some cramps in the back pain and the patient's rested on Tuesday but again Tuesday patient started developing more back pain and patient is not feeling well and also noticed some shortness of the breath and the chest pain. Patient's was using the lawn manager print And was bending and describing the more pain in the back of the shoulder blade and feeling short of breath Patients denied any history of the heart problemsPatient's currently see her Dr. Nam in the last creatinine according to the patient was around 3 Patient's currently denied any chest pain but still complains of pain in the back of the shoulder blade and feeling some short of breath . Patient's CT abdomen and pelvis was negative for any kidney stones Patient initial EKG chest x-ray is also negative Patient creatinine is 4.5 Hospital Course Hospital Course: This is a 47-year-old male with a significant history of the chronic kidney disease and hypertension came to the emergency department with a complaint of back pain and pleuritic chest pain and shortness of the breath and the dehydration's. Patient's creatinine was 4.4 and patient at this point admitting the hospital for further evaluation and treatment. Patient's was given IV fluid and Dr. Nam was consulted and patient's creatinine back to the baseline about 4 range. Patient also have a VQ scan done was negative for any PE in a patient also have a CT of the chest which is negative for any acute finding. Patient was CT abdomen and pelvis was also done which is negative for any acute finding Patient have MRI of the T-spine and x-ray of the L-spine was done which is also stable except some degenerative disease in the disc disease Patient's otherwise doing much better patients denied any chest pain denied any shortness of the breath. Patient's p.o. intake is good patient's walk around in the hallway without any problems Discussed with the Dr. Nam and suggest the patient's can discharge home and follow as outpatient Physical Exam Vital Signs: Temp Pulse Resp BP Pulse Ox 98.2 F 69 19 153/93 H 98 09/29/16 09:50 09/29/16 09:50 09/29/16 09:50 09/29/16 09:50 09/29/16 09:50 Intake & Output 09/28/16 09/29/16 09/30/16 06:59 06:59 06:59 Intake Total 2109 2450 Balance 2109 2458 Weight 118.7 kg 117 kg General appearance: PRESENT: no acute distress, well-developed, well-nourished Head exam: PRESENT: atraumatic, normocephalic Eye exam: PRESENT: conjunctiva pink, EOMI, PERRLA. ABSENT: scleral icterus Ear exam: PRESENT: normal external ear exam Mouth exam: PRESENT: moist, tongue midline Neck exam: PRESENT: full ROM. ABSENT: carotid bruit, JVD, lymphadenopathy, thyromegaly Respiratory exam: PRESENT: clear to auscultation richard Cardiovascular exam: PRESENT: RRR. ABSENT: diastolic murmur, rubs, systolic murmur Pulses: PRESENT: normal dorsalis pedis pul, +2 pedal pulses bilateral Vascular exam: PRESENT: normal capillary refill GI/Abdominal exam: PRESENT: normal bowel sounds, soft. ABSENT: distended, guarding, mass, organolmegaly, rebound, tenderness Rectal exam: PRESENT: deferred Neurological exam: PRESENT: alert, awake, oriented to person, oriented to place , oriented to time, oriented to situation, CN II-XII grossly intact. ABSENT: motor sensory deficit Psychiatric exam: PRESENT: appropriate affect, normal mood. ABSENT: homicidal ideation, suicidal ideation Skin exam: PRESENT: dry, intact, warm. ABSENT: cyanosis, rash Results Laboratory Results: 09/29/16 05:41 09/29/16 05:41 09/29/16 09/29/16 05:41 05:41 WBC 8.4 RBC 3.49 L Hgb 10.4 L Hct 32.3 L MCV 93 MCH 29.8 MCHC 32.2 RDW 12.6 Plt Count 213 Seg Neutrophils % 67.1 Lymphocytes % 20.7 Monocytes % 8.0 Eosinophils % 3.6 Basophils % 0.6 Absolute Neutrophils 5.6 Absolute Lymphocytes 1.7 Absolute Monocytes 0.7 Absolute Eosinophils 0.3 Absolute Basophils 0.1 Sodium 142.9 Potassium 5.1 H Chloride 112 H Carbon Dioxide 18 L Anion Gap 13 BUN 44 H Creatinine 3.92 H Est GFR ( Amer) 19 L Est GFR (Non-Af Amer) 16 L Glucose 92 Calcium 9.0 09/27/16 09/27/16 09/27/16 09:05 09:05 13:55 Creatine Kinase 183 H 151 CK-MB (CK-2) 0.81 Troponin I < 0.012 09/27/16 09/27/16 09/27/16 13:55 21:27 21:27 Creatine Kinase 164 CK-MB (CK-2) 0.87 0.95 Troponin I < 0.012 < 0.012 Impressions: Abdomen/Pelvis CT 09/27/16 00:00 IMPRESSION: No acute findings. Chest CT 09/27/16 00:00 IMPRESSION: SMALL NODULE IN THE RIGHT UPPER LOBE. FOLLOW-UP CLINICALLY INDICATED. NO ACUTE FINDING ON NON-CONTRASTED CHEST CT. Lumbar Spine X-Ray 09/27/16 00:00 IMPRESSION: MILD DEGENERATIVE CHANGES. NO APPARENT ACUTE FINDINGS. Lung Scan-VQ NM 09/27/16 00:00 IMPRESSION: NORMAL VENTILATION-PERFUSION LUNG SCAN. NEGATIVE FOR PULMONARY EMBOLI. Chest X-Ray 09/27/16 03:19 IMPRESSION: NO ACUTE RADIOGRAPHIC FINDING IN THE CHEST. Thoracic Spine MRI 09/28/16 00:00 IMPRESSION: No significant findings. Plan Time Spent: Less than 30 Minutes - Patient's discharge home with the stable conditions all the test result discussed with the patient and discussed with the Dr. Nam about coordinate care. Patients follow with the Dr. Nam in 1 week and following office in 1 week
[2016-10-01 16:39] LABS: ALBUMIN UR 71.3 % (.); GAMMA GLOBULIN URINE 12.7 % (.); M-SPIKE % UR Not Observed % (Not Observed)
== END 2016-09-29 10:31 | disposition home or self-care (01) | DRG 684 ==
LOC: ER 02:28 → OBSVTOIN 06:17 → UNDOADMOB 06:17 → EH 06:17 → INTOOBSV 06:17 → EH 06:21 → OBSVTOIN 06:21 → 3W 09:20 → 4S 09-28 12:54
PROVIDERS: ADMIT Family Medicine; ATTEND Family Medicine
DX: N17.9 Acute kidney failure, unspecified (principal); I12.9 Hypertensive chronic kidney disease with stage 1 through stage 4 chronic kidney disease, or unspecified chronic kidney disease; N18.4 Chronic kidney disease, stage 4 (severe); E86.0 Dehydration; K21.9 Gastro-esophageal reflux disease without esophagitis; M10.9 Gout, unspecified; M51.35 Other intervertebral disc degeneration, thoracolumbar region; M54.6 Pain in thoracic spine; Z79.899 Other long term (current) drug therapy; Z88.3 Allergy status to other anti-infective agents
CPT/HCPCS: 36415; 71010; 71250; 72110; 72146; 74176; 78582; 80048; 80053; 81001; 82550; 82553; 83735; 84165; 84166; 84484; 85025; 87086; 93005; 93010; 96361; 96365; 96375; 99285; A9540; A9567; J1650; J2270; J3475; J3490; J7030; J7040; Q9969

== ENCOUNTER 2017-02-08 03:10 | Emergency (ER) | payer OTHER ==
[2017-02-08] MEDS ORDERED: DIPHENHYDRAMINE HCL 50 MG/ML VIAL ONE (03:24)
[2017-02-08] MEDS ORDERED: NORMAL SALINE 1000 ML 1,000 ML IV ONE ×2 (03:37→03:38)
[2017-02-08] MEDS ORDERED: DIPHENHYDRAMINE HCL 50 MG/ML VIAL IV ONE (03:37)
[2017-02-08] MEDS ORDERED: FAMOTIDINE INJ/PF 20 MG/2 ML SDV IV ONE (03:37)
[2017-02-08] MEDS ORDERED: METHYLPREDNISOLONE INJ 125 MG/2 ML SDV IV ONE (03:37)
[2017-02-08 03:53] LABS: ABSOLUTE BASOPHILS # (AUTO) 0.1 10^3/uL (0.0-0.2); ABSOLUTE EOSINOPHILS # (AUTO) 0.3 10^3/uL (0.0-0.6); ABSOLUTE LYMPHOCYTES (AUTO) 4.3 10^3/uL (0.5-4.7); ABSOLUTE MONOCYTES (AUTO) 0.5 10^3/uL (0.1-1.4); ABSOLUTE NEUT (AUTO) 5.9 10^3/uL (1.7-8.2); BASOPHILS % (AUTO) 0.7 % (0-2); EOSINOPHILS % (AUTO) 3.1 % (0-6); HEMATOCRIT 34.8 % (37.9-51.0); HEMOGLOBIN 11.3 g/dL (13.5-17.0); HGB HCT DIFFERENCE -0.9; LYMPHOCYTES % (AUTO) 38.3 % (13-45); MEAN CORPUSCULAR HEMOGLOBIN 29.7 pg (27.0-33.4); MEAN CORPUSCULAR HGB CONC 32.6 g/dL (32.0-36.0); MEAN CORPUSCULAR VOLUME 91 fl (80-97); MONOCYTES % (AUTO) 4.8 % (3-13); RED BLOOD COUNT 3.82 10^6/uL (4.35-5.55); RED CELL DISTRIBUTION WIDTH 13.3 % (11.5-14.0); SEGMENTED NEUTROPHILS % (AUTO) 53.1 % (42-78); WHITE BLOOD COUNT 11.1 10^3/uL (4.0-10.5)
[2017-02-08 04:24] LABS: ANION GAP 14 (5-19); BLOOD UREA NITROGEN 50 mg/dL (7-20); CALCIUM 8.9 mg/dL (8.4-10.2); CARBON DIOXIDE 17 mmol/L (22-30); CHLORIDE 110 mmol/L (98-107); GLUCOSE 163 mg/dL (75-110); POTASSIUM 3.9 mmol/L (3.6-5.0); SODIUM 140.9 mmol/L (137-145)
[2017-02-08] MEDS ORDERED: ACETAMINOPHEN 325 MG TABLET PO ONE (06:09)
--- NOTE | 2017-02-08 06:09 | ER Document Report ---
ED General - General Chief Complaint: Dizziness Stated Complaint: POSSIBLE ALLERGIC REACTION Time Seen by Provider: 02/08/17 03:29 Notes: Patient is a 56-year-old male that comes emergency department for chief complaint of allergic reaction. He states that about 30 minutes after taking lisinopril for the first time tonight with a new prescription he began feeling strange, began itching all over his body, he came to be evaluated for this. He denies chest pain, shortness of breath, dizziness, difficulty swallowing, difficulty breathing. After arrival to the emergency department at the nursing station patient passed out. He was found to be hypotensive. TRAVEL OUTSIDE OF THE [place] IN LAST 30 DAYS: No - Related Data Allergies/Adverse Reactions: doxycycline Allergy (Verified 09/27/16 02:36) Past Medical History - General Information source: Patient - Social History Smoking Status: Never Smoker Frequency of alcohol use: None Drug Abuse: None Lives with: Family Family History: Reviewed & Not Pertinent Patient has suicidal ideation: No Patient has homicidal ideation: No - Past Medical History Cardiac Medical History: Reports: Hx Hypertension Pulmonary Medical History: Denies: Hx Tuberculosis Renal/ Medical History: Reports: Hx Renal Insufficiency. Denies: Hx Peritoneal Dialysis GI Medical History: Reports: Hx Gastroesophageal Reflux Disease Musculoskeltal Medical History: Reports Hx Gout, Reports Hx Musculoskeletal Deformity - cyst left wrist Psychiatric Medical History: Denies: Hx Depression Traumatic Medical History: Reports: Hx Fractures - right hand Past Surgical History: Denies: Hx Pacemaker - Immunizations Immunizations up to date: Yes Hx Diphtheria, Pertussis, Tetanus Vaccination: Yes Review of Systems - Review of Systems Constitutional: See HPI EENT: No symptoms reported Cardiovascular: See HPI Respiratory: No symptoms reported Gastrointestinal: No symptoms reported Genitourinary: No symptoms reported Male Genitourinary: No symptoms reported Musculoskeletal: No symptoms reported Skin: See HPI Hematologic/Lymphatic: No symptoms reported Neurological/Psychological: See HPI Physical Exam - Vital signs Vitals: Pulse Resp BP Pulse Ox 74 18 67/38 L 93 02/08/17 03:22 02/08/17 03:22 02/08/17 03:22 02/08/17 03:22 Interpretation: Normal - General General appearance: Other - Patient pale and diaphoretic - HEENT Head: Normocephalic, Atraumatic Eyes: Normal Pupils: PERRL - Respiratory Respiratory status: No respiratory distress Chest status: Nontender Breath sounds: Normal Chest palpation: Normal - Cardiovascular Rhythm: Regular. No: Tachycardia Heart sounds: Normal auscultation, S1 appreciated, S2 appreciated Murmur: No - Abdominal Inspection: Normal Distension: No distension Bowel sounds: Normal Tenderness: Nontender. No: Tender, Guarding Organomegaly: No organomegaly - Back Back: Normal, Nontender. No: Tender - Extremities General upper extremity: Normal inspection, Nontender, Normal color, Normal ROM , Normal temperature General lower extremity: Normal inspection, Nontender, Normal color, Normal ROM , Normal temperature, Normal weight bearing. No: Faustino's sign - Neurological Neuro grossly intact: Yes Cognition: Normal Orientation: AAOx4 Griselda Coma Scale Eye Opening: Spontaneous [place] Coma Scale Verbal: Oriented Griselda Coma Scale Motor: Obeys Commands [place] Coma Scale Total: 15 Speech: Normal Motor strength normal: LUE, RUE, LLE, RLE Sensory: Normal - Psychological Associated symptoms: Normal affect, Normal mood - Skin Skin Temperature: Cool Skin Moisture: Diaphoretic Skin Color: Pale Course - Re-evaluation Re-evalutation: Patient pale, diaphoretic, hypotensive on my initial evaluation. He was immediately placed in Trendelenburg, 2 IVs were placed, 2 L of normal saline was given. He is also given Solu-Medrol, Benadryl, Pepcid. His airway was clear, he was responding to me, he had no angioedema or wheezing. No hypoxia. Patient had normalization of his blood pressure. Itching sensation resolved, airway normal. Will continue to monitor. Labs at his baseline, EKG unremarkable. Patient with a small superficial abrasion over the left forehead. He remains alert and responsive. He did hit his head on the floor after passing out. Discussed CAT scan, however with no evidence of significant trauma, small abrasion, no blood thinner use, no alcohol, normal neurological exam, and the lack of headache this was deferred. No neck pain. This was discussed with patient and significant other carefully. On reevaluation patient remains asymptomatic. Patient monitored for 2 hours. Afterwards he is asking to leave. Discussed case with Dr. Aguilar. Patient would be discharged with antihistamines, EpiPen, advised to never take GREGORIO inhibitors, discussed return precautions in detail. Patient states satisfaction and agreement. - Vital Signs Vital signs: Temp Pulse Resp BP Pulse Ox 98.5 F 74 14 132/85 H 100 02/08/17 06:20 02/08/17 06:20 02/08/17 06:20 02/08/17 06:20 02/08/17 06:20 - Laboratory Result Diagrams: 02/08/17 03:30 02/08/17 03:30 Laboratory results interpreted by me: 02/08/17 02/08/17 03:30 03:30 WBC 11.1 H RBC 3.82 L Hgb 11.3 L Hct 34.8 L Chloride 110 H Carbon Dioxide 17 L BUN 50 H Creatinine 4.40 H Est GFR ( Amer) 17 L Est GFR (Non-Af Amer) 14 L Glucose 163 H Discharge - Discharge Clinical Impression: Allergic reaction Qualifiers: Encounter type: initial encounter Qualified Code(s): T78.40XA - Allergy, unspecified, initial encounter Syncope Qualifiers: Syncope type: unspecified Qualified Code(s): R55 - Syncope and collapse Condition: Stable Disposition: HOME, SELF-CARE Additional Instructions: Your symptoms and examination are most consistent with an allergic reaction to lisinopril. Do not take this medication anymore. Do not take any GREGORIO inhibitor medications in the future. Take the Zyrtec and Pepcid antihistamines for 1 week. Follow the head injury precautions listed below. See also Steri-Strip instructions. In the event of severe allergic reaction like today take your EpiPen as prescribed and return to the emergency department. Return for any other concerning symptoms. Head Injury Precautions At this point, there is no evidence that your head injury is serious. Observation is necessary, however. Take only clear liquids for the first few hours, unless told otherwise by the doctor. If no pain medication was prescribed, you may take acetaminophen according to the directions on the bottle. Do not take any medication that may alter your level of alertness (unless you've discussed it with the doctor first) . Limit activity for the first 24 hours. Bed rest is best. During the first 24 hours, check to see approximately every two to three hours that the patient is easily arousable, responds normally, and can perform common tasks such as walking without difficulty. Contact your doctor or go to the hospital if any of the following things occur: Persistent vomiting, difficulty in arousing the patient, worsening or continued headache, or failure to improve as expected. Head injuries can cause symptoms that persist for a few days or even a few weeks. Care of Steri-Strip Closure Your cut has been closed up with a special surgical tape. For this type of cut, it can replace stitches. You must protect the wound just as you would with stitches, however. For the first few days, keep the wound area completely dry. This also means you should avoid activity which makes you sweat. Do not move the area if motion stretches or wrinkles the strips. Don't allow the area to be bumped -- if bleeding occurs, the blood can make the strips loosen. The strips are somewhat waterproof. After a few days, the physician may allow you to shower. Be sure to ask if it's OK. Do not remove the tape until it peels off by itself. At that time, the wound should be healed. Prescriptions: Cetirizine HCl [Zyrtec 10 mg Tablet] 1 tab PO DAILY #30 tablet Epinephrine [Epipen 2-Nima] 0.3 mg IM ASDIR PRN #1 packet PRN Reason: Famotidine [Pepcid 20 mg Tablet] 20 mg PO DAILY #12 tablet Referrals: ROB RILEY MD [Primary Care Provider] - Follow up in 3-5 days
[2017-02-08 06:29] VITALS: BP 132/85
--- NOTE | 2017-02-08 21:11 | EKG REPORT ---
SEVERITY:- NORMAL ECG - SINUS RHYTHM : Confirmed by: Yohana Fuentes MD 08-Feb-2017 21:10:09
== END 2017-02-08 06:29 | disposition home or self-care (01) ==
LOC: ER 03:10
DX: T78.40XA Allergy, unspecified, initial encounter (principal); R55 Syncope and collapse
CPT/HCPCS: 93005; 99284; 96361; 96374; 96375; 36415; 85025; 80048; 93010; J1200; J2930; J7030; S0028

== ENCOUNTER 2018-05-11 22:55 | Inpatient (IN) | payer OTHER ==
[2018-05-11] MEDS ORDERED: NITROGLYCERIN/D5W 50 MG/250 ML RTUINJ IV ONE (23:00)
[2018-05-11] MEDS ORDERED: FUROSEMIDE INJ/PF 20 MG/2 ML SDV IV ONE (23:05)
[2018-05-11] MEDS ORDERED: NITROGLYCERIN/D5W 50 MG/250 ML RTUINJ IV PRN (23:05)
--- NOTE | 2018-05-11 23:07 | ER Document Report ---
ED General - General Stated Complaint: Sudden onset shortness of breath Time Seen by Provider: 05/11/18 23:03 Notes: Patient is a 57-year-old male with a past medical history of chronic kidney disease, hypertension, presents with acute onset of shortness of breath just prior to arrival. The patient states that he abruptly began to feel like he could not breathe, began coughing. EMS was contacted, patient was found to be saturating 80% on room air. Patient reports that he had some improvement with supplemental oxygen and significant improvement after application of CPAP by EMS. Patient denies any history of similar symptoms in the past. No obvious trigger for today's episode. Denies noncompliance with medications. Patient reports that he follows with Dr. Nam for nephrology and Dr. Richards is his primary care physician. States that Dr. Nam is told him that he will eventually need dialysis but he is uncertain of how poor his kidney function is at baseline. Denies any chest discomfort. States prior to the onset of symptoms today he felt completely fine. TRAVEL OUTSIDE OF THE [place] IN LAST 30 DAYS: No - Related Data Allergies/Adverse Reactions: doxycycline Allergy (Verified 09/27/16 02:36) Past Medical History - General Information source: Patient - Social History Smoking Status: Never Smoker Frequency of alcohol use: None Drug Abuse: None Lives with: Spouse/Significant other Family History: Reviewed & Not Pertinent - Past Medical History Cardiac Medical History: Reports: Hx Hypertension Pulmonary Medical History: Denies: Hx Tuberculosis Renal/ Medical History: Reports: Hx Renal Insufficiency. Denies: Hx Peritoneal Dialysis GI Medical History: Reports: Hx Gastroesophageal Reflux Disease Musculoskeletal Medical History: Reports Hx Gout, Reports Hx Musculoskeletal Deformity - cyst left wrist Psychiatric Medical History: Denies: Hx Depression Traumatic Medical History: Reports: Hx Fractures - right hand Past Surgical History: Denies: Hx Pacemaker - Immunizations Immunizations up to date: Yes Hx Diphtheria, Pertussis, Tetanus Vaccination: Yes Review of Systems - Review of Systems Notes: Constitutional: Negative for fever. HENT: Negative for sore throat. Eyes: Negative for visual changes. Cardiovascular: Negative for chest pain. Respiratory: Positive for shortness of breath. Gastrointestinal: Negative for abdominal pain, vomiting or diarrhea. Genitourinary: Negative for dysuria. Musculoskeletal: Negative for back pain. Skin: Negative for rash. Neurological: Negative for headaches, weakness or numbness. 10 point ROS negative except as marked above and in HPI. Physical Exam - Vital signs Vitals: Resp Pulse Ox 21 H 95 05/11/18 22:55 05/11/18 22:55 Interpretation: Hypertensive, Tachycardic, Tachypneic Notes: PHYSICAL EXAMINATION: GENERAL: Appears moderately uncomfortable, in moderate respiratory distress at time of initial presentation HEAD: Atraumatic, normocephalic. EYES: Pupils equal round and reactive to light, extraocular movements intact, s clera anicteric, conjunctiva are normal. ENT: nares patent, oropharynx clear without exudates. Moderately dry mucous membranes. NECK: Normal range of motion, supple without lymphadenopathy LUNGS: Moderate respiratory distress, tachypneic with respiratory rates in the low 30s at time of initial presentation. Rales throughout. HEART: Regular tachycardia without murmurs ABDOMEN: Soft, nontender, normoactive bowel sounds. No guarding, no rebound. No masses appreciated. EXTREMITIES: Normal range of motion, no pitting or edema. No cyanosis. NEUROLOGICAL: No focal neurological deficits. Moves all extremities spontaneously and on command. PSYCH: Normal mood, normal affect. SKIN: Warm, Dry, normal turgor, no rashes or lesions noted. Course - Re-evaluation Re-evalutation: 05/11/18 23:06 Patient presents in respiratory distress findings consistent with acute flash pulmonary edema. Bedside pleural ultrasound shows B-lines in all lung willett. Patient has trace edema in bilateral lower extremity's. Has a history of chronic kidney disease but no known history of congestive heart failure. Initially saturating 80% on room air at time of the EMS initial arrival. Markedly hypertensive into the 170s-180s. Nitropaste was applied in the field and patient was given sublingual nitroglycerin. Patient has been started on nitroglycerin infusion at 80 mcg/min. 20 mg of furosemide IV will be administered. Patient will be maintained on BiPAP. Chest x-ray, EKG and labs will be obtained. Patient is in guarded condition and will require frequent and regular reassessments. 05/11/18 23:47 Patient's laboratories demonstrate significantly worsened renal functions relative to the last time I have laboratories from the end of 2017. GFR is down to 8. This likely accounts for a large portion of the patient becoming volume overloaded and developing pulmonary edema. Currently the patient is overall much improved. No longer in distress 100% on 30% FiO2 on BiPAP. Nitro infusion to 80 maintaining pressures in the 130s range. I have paged Dr. Nam and request consultation as patient will require hospitalization and may eventually require dialysis. I do not believe he currently requires emergent dialysis. 05/12/18 00:00 Patient has continued to improve on BiPAP. I have discussed with Dr. Richards who has accepted the patient to the ICU. I did also discuss with Dr. Nam who states the patient will likely require dialysis at some point during his hospitalization but agrees that he will not require emergent dialysis at this time. - Vital Signs Vital signs: Temp Pulse Resp BP Pulse Ox 18 138/95 H 98 05/12/18 03:01 05/12/18 03:01 05/12/18 03:01 - Laboratory Result Diagrams: 05/11/18 22:19 05/11/18 22:19 Laboratory results interpreted by me: 05/11/18 05/11/18 05/11/18 22:19 22:19 22:19 RBC 3.36 L Hgb 10.3 L Hct 32.2 L Chloride 112 H Carbon Dioxide 21 L BUN 51 H Creatinine 7.34 H Est GFR ( Amer) 9 L Est GFR (Non-Af Amer) 8 L Calcium 8.2 L Alkaline Phosphatase 134 H NT-Pro-B Natriuret Pep 8080 H - Diagnostic Test Radiology reviewed: Image reviewed, Reports reviewed Radiology results interpreted by me: 05/12/18 00:00 Chest x-ray: Patchy pulmonary edema bilaterally Critical Care Note - Critical Care Note Total time excluding time spent on procedures (mins): 40 Comments: Critical care time spent obtaining history from patient or surrogate, discussions with consultants, development of treatment plan with patient or surrogate, evaluation of patient's response to treatment, examination of patient, ordering and performing treatments and interventions, ordering and review of laboratory studies, re-evaluation of patient's condition, ordering and review of radiographic studies and review of old charts Discharge - Discharge Clinical Impression: Acute kidney injury superimposed on chronic kidney disease, Respiratory distress, Flash pulmonary edema Condition: Fair Disposition: ADMITTED INPATIENT Admitting Provider: [facility] Admitted: ICU
[2018-05-11 23:23] LABS: ABSOLUTE BASOPHILS # (AUTO) 0.1 10^3/uL (0.0-0.2); ABSOLUTE EOSINOPHILS # (AUTO) 0.4 10^3/uL (0.0-0.6); ABSOLUTE LYMPHOCYTES (AUTO) 2.9 10^3/uL (0.5-4.7); ABSOLUTE MONOCYTES (AUTO) 0.9 10^3/uL (0.1-1.4); ABSOLUTE NEUT (AUTO) 6.3 10^3/uL (1.7-8.2); BASOPHILS % (AUTO) 0.9 % (0-2); EOSINOPHILS % (AUTO) 3.5 % (0-6); HEMATOCRIT 32.2 % (37.9-51.0); HEMOGLOBIN 10.3 g/dL (13.5-17.0); LYMPHOCYTES % (AUTO) 27.7 % (13-45); MEAN CORPUSCULAR HEMOGLOBIN 30.7 pg (27.0-33.4); MEAN CORPUSCULAR HGB CONC 32.1 g/dL (32.0-36.0); MEAN CORPUSCULAR VOLUME 96 fl (80-97); MONOCYTES % (AUTO) 8.2 % (3-13); PLATELET COUNT 224 10^3/uL (150-450); RED BLOOD COUNT 3.36 10^6/uL (4.35-5.55); RED CELL DISTRIBUTION WIDTH 13.6 % (11.5-14.0); SEGMENTED NEUTROPHILS % (AUTO) 59.7 % (42-78); TOTAL CELLS COUNTED % (AUTO) 100 %; WHITE BLOOD COUNT 10.5 10^3/uL (4.0-10.5)
[2018-05-11 23:44] LABS: ALANINE AMINOTRANSFERASE 23 U/L (21-72); ALBUMIN 3.8 g/dL (3.5-5.0); ALKALINE PHOSPHATASE 134 U/L (38-126); ANION GAP 10 (5-19); ASPARTATE AMINO TRANSFERASE 26 U/L (17-59); BILIRUBIN,DIRECT 0.1 mg/dL (0.0-0.4); BILIRUBIN,TOTAL 0.2 mg/dL (0.2-1.3); BLOOD UREA NITROGEN 51 mg/dL (7-20); CALCIUM 8.2 mg/dL (8.4-10.2); CARBON DIOXIDE 21 mmol/L (22-30); CHLORIDE 112 mmol/L (98-107); GLUCOSE 106 mg/dL (75-110); SODIUM 142.7 mmol/L (137-145); TOTAL PROTEIN 6.9 g/dL (6.3-8.2)
[2018-05-11 23:55] LABS: NT PRO BNP 8080 pg/mL (5-900)
[2018-05-11 23:57] LABS: TROPONIN I < 0.012 ng/mL
[2018-05-12] MEDS ORDERED: IPRATROPIUM/ALBUTEROL 0.5-2.5 MG/3 ML AMPUL NEB PRN (00:08)
--- NOTE | 2018-05-12 00:37 | RADIOLOGY REPORT (SQ) ---
EXAM DESCRIPTION: XR CHEST 1 VIEW COMPLETED DATE/TME: 05/11/2018 23:04 CLINICAL HISTORY: 57 years, Male, sob Findings: The heart is mildly enlarged. Aorta is within normal limits. No consolidation or pleural effusion. Mild right basilar atelectasis. No significant pulmonary edema. IMPRESSION: Right basilar atelectasis.
[2018-05-12 04:48] LABS: CREATINE KINASE MB 2.68 ng/mL (<4.55)
[2018-05-12 04:51] LABS: TROPONIN I < 0.012 ng/mL
[2018-05-12] MEDS: HEPARIN SOD (PORCINE) 5,000 UNIT/ML 1 ML SYRINGE SUBCUT SCH ×3 (05:52→21:26)
[2018-05-12] MEDS: FUROSEMIDE INJ/PF 40 MG/4 ML SDV IV SCH ×3 (05:52→21:26)
[2018-05-12] MEDS: ACETAMINOPHEN 325 MG TABLET PO PRN ×3 (05:54→13:39)
[2018-05-12] MEDS ORDERED: LANSOPRAZOLE 30 MG TAB.RAP.DR PO SCH (06:00)
--- NOTE | 2018-05-12 07:31 | EKG REPORT ---
SEVERITY:- BORDERLINE ECG - SINUS RHYTHM BORDERLINE T WAVE ABNORMALITIES : Confirmed by: Buck Turpin MD 12-May-2018 07:31:20
[2018-05-12 08:26] LABS: ANION GAP 8 (5-19); BLOOD UREA NITROGEN 51 mg/dL (7-20); CALCIUM 7.7 mg/dL (8.4-10.2); CARBON DIOXIDE 20 mmol/L (22-30); CHLORIDE 114 mmol/L (98-107); GLUCOSE 149 mg/dL (75-110); POTASSIUM 5.7 mmol/L (3.6-5.0); SODIUM 141.9 mmol/L (137-145)
[2018-05-12 11:41] LABS: CREATINE KINASE MB 2.14 ng/mL (<4.55)
[2018-05-12 11:44] LABS: TROPONIN I < 0.012 ng/mL
--- NOTE | 2018-05-12 12:28 | PDOC CONSULTATION ---
Consultation Consult Date: 05/12/18 Consult reason:: Acute on chronic kidney disease stage IV with flash pulmonary edema. History of Present Illness Admission Date/PCP: 05/12/18 00:34 ROB RILEY MD History of Present Illness: MARGE ORTEGA is a 57 year old maleWith a history of hypertension and CKD stage IV with a base creatinine of 4.5 was admitted last night with history of sudden onset of shortness of breath. He says he was indulging in [employer] bread soup and couple of hours after that he was at home laying down when he suddenly felt difficulty to breathe and a crushing pressure-like sensation over his chest.Is getting progressively worse that he had to call 911 and get to the ER. He says by the time the EMS crew came and put him on oxygen and gave him sublingual nitroglycerin there was rapid relief and by the time he came to the ER he was at least 70-80% better. He denies any history of severe chest pain with radiation to the neck or into the arms. He says he walks 2 miles 5 days a week without an y issues. He also mentions that he had a cardiac workup as part of renal transplant in my than the last 6 months including an echo and stress test both of which were negative.Labs and medications and chest x-ray was reviewed. Patient currently said he feels like he is back to baseline. Past Medical History Cardiac Medical History: Reports: Hypertension-primary Pulmonary Medical History: Denies: Tuberculosis Renal/ Medical History: Reports: Chronic Kidney Disease Stage IV, Hyperkalemia, Secondary Hyperparathyroidism GI Medical History: Reports: Gastroesophageal Reflux Disease Musculoskeltal Medical History: Reports: Gout Psychiatric Medical History: Denies: Depression Hematology Medical History: Reports Anemia of Chronic Kidney Disease Past Surgical History Past Surgical History: Denies: Pacemaker Social History Lives with: Spouse/Significant other Smoking Status: Never Smoker Frequency of Alcohol Use: None Hx Recreational Drug Use: No Hx Prescription Drug Abuse: No Family History Parental Family History Reviewed: Yes - Negative for ESRD. Children Family History Reviewed: No Sibling(s) Family History Reviewed.: No Medication/Allergy Home Medications: Calcitriol [Rocaltrol 0.25 mcg Capsule] 0.25 mcg PO DAILY 09/27/16 Febuxostat [Uloric 80 mg Tablet] 80 mg PO DAILY 09/27/16 Metoprolol Tartrate [Lopressor 50 mg Tablet] 50 mg PO Q12 09/27/16 Sodium Bicarbonate [Sodium Bicarbonate 650 mg Tablet] 650 mg PO Q12 #60 tablet 09/29/16 Atorvastatin Calcium [Lipitor 20 mg Tablet] 20 mg PO DAILY 05/12/18 Tamsulosin HCl [Flomax 0.4 mg Cap.sr] 0.4 mg PO DAILY 05/12/18 Verapamil HCl [Verapamil ER] 180 mg PO DAILY 05/12/18 Allergies/Adverse Reactions: doxycycline Allergy (Verified 05/12/18 10:34) Review of Systems Constitutional: ABSENT: anorexia, chills, fatigue, fever(s), headache(s), night sweats, weakness, weight loss Ears: ABSENT: hearing changes Nose, Mouth, and Throat: ABSENT: mouth pain, sore throat Cardiovascular: PRESENT: dyspnea on exertion. ABSENT: chest pain, edema, orthropnea, palpitations Gastrointestinal: ABSENT: abdominal pain, coffee ground emesis, diarrhea, dysphagia, heartburn, hematemesis, hematochezia, nausea, vomiting Genitourinary: ABSENT: dysuria, hematuria Musculoskeletal: ABSENT: deformity, joint swelling Integumentary: ABSENT: diaphoresis, erythema, lesions, pruritus, rash Neurological: ABSENT: abnormal movements, abnormal speech, focal weakness, frequ ent falls, lack of coordination, numbness Endocrine: ABSENT: polydipsia Hematologic/Lymphatic: ABSENT: easy bruising, lymphadenopathy Physical Exam Vital Signs: Temp Pulse Resp BP Pulse Ox 98.5 F 22 H 157/91 H 97 05/12/18 03:00 05/12/18 10:31 05/12/18 10:31 05/12/18 10:31 Intake & Output 05/11/18 05/12/18 05/13/18 06:59 06:59 06:59 Intake Total 355 125 Output Total 800 Balance -445 125 Weight 118.8 kg Eye exam: PRESENT: conjunctiva pink, EOMI, PERRLA. ABSENT: nystagmus Mouth exam: PRESENT: moist, neck supple Neck exam: ABSENT: lymphadenopathy, meningismus, tenderness, thyromegaly, tracheal deviation Respiratory exam: PRESENT: clear to auscultation richard. ABSENT: crackles Cardiovascular exam: PRESENT: +S1, +S2, systolic murmur GI/Abdominal exam: PRESENT: normal bowel sounds, soft. ABSENT: organomegaly, tenderness Extremities exam: ABSENT: pedal edema Neurological exam: PRESENT: alert, awake, oriented to person, oriented to place, oriented to time Psychiatric exam: PRESENT: appropriate affect Focused psych exam: ABSENT: delusional, euphoric, flight of ideas, pressured speech Skin exam: ABSENT: cyanosis, erythema, mottled, rash Results Laboratory Results: 05/11/18 22:19 05/12/18 04:07 05/11/18 05/11/18 05/12/18 22:19 22:19 04:07 WBC 10.5 RBC 3.36 L Hgb 10.3 L Hct 32.2 L MCV 96 MCH 30.7 MCHC 32.1 RDW 13.6 Plt Count 224 Seg Neutrophils % 59.7 Lymphocytes % 27.7 Monocytes % 8.2 Eosinophils % 3.5 Basophils % 0.9 Absolute Neutrophils 6.3 Absolute Lymphocytes 2.9 Absolute Monocytes 0.9 Absolute Eosinophils 0.4 Absolute Basophils 0.1 Sodium 142.7 141.9 Potassium 5.0 5.7 H Chloride 112 H 114 H Carbon Dioxide 21 L 20 L Anion Gap 10 8 BUN 51 H 51 H Creatinine 7.34 H 7.35 H Est GFR ( Amer) 9 L 9 L Est GFR (Non-Af Amer) 8 L 8 L Glucose 106 149 H Calcium 8.2 L 7.7 L Magnesium 1.2 L* Total Bilirubin 0.2 AST 26 ALT 23 Alkaline Phosphatase 134 H Total Protein 6.9 Albumin 3.8 05/11/18 05/12/18 05/12/18 22:19 04:07 04:07 Creatine Kinase 804 H CK-MB (CK-2) 2.68 Troponin I < 0.012 < 0.012 NT-Pro-B Natriuret Pep 8080 H 05/12/18 05/12/18 10:56 10:56 Creatine Kinase 730 H CK-MB (CK-2) 2.14 Troponin I < 0.012 NT-Pro-B Natriuret Pep Impressions: Chest X-Ray 05/11/18 23:04 IMPRESSION: Right basilar atelectasis. Assessment & Plan - Diagnosis (1) Flash pulmonary edema Plan: Patient presents with classic flash pulmonary edema. Unable to clearly explain why he did did this. Apparently he had a cardiac workup in the last 6 months including apparently negative stress as an echo and will try to obtain those res ults. He does not have any evidence to indicate renal artery stenosis.Discussed with Dr. Riley about ordering a VQ scan. Meanwhile he has low magnesium and will correct that immediately with IV followed by p.o. Unsure if this would be a cause for dysrhythmia that could have been an etiology for his heart failure. (2) Acute kidney injury superimposed on chronic kidney disease Plan: He says he saw me in the office last February but looking at the my records he was last seen here in August. That is almost 8 months since he was last seen and at that time his creatinine was 4.5. Obviously has got acute insult on top of his CKD. This could be a natural progression of his CKD. Anyway at this moment I do not see any acute indications for initiation of renal replacements. Patient wants to go on peritoneal dialysis. If he gets through this crisis wit hout an issue as I believe he will then I can see him in the office next week and we can make plans to look at his labs and see whether he needs to be initiated on peritoneal dialysis or not. Discussed with the patient and is happy with the plans were made. (3) Hypomagnesemia Plan: Orders have been placed for IV followed by p.o. Discussed with Meghna the treating nurse in the ER. (5) Hyperkalemia Plan: Order Kayexalate. If there is a shortage of this medicine then I have asked the nurse to give me a call back in which case we will initiate IV calcium and insulin dextrose followed by Pineda.
[2018-05-12] MEDS ORDERED: SODIUM POLYSTYRENE SULFONATE 15 GM/60 ML PO ONE (12:30)
[2018-05-12] MEDS ORDERED: ATORVASTATIN CALCIUM 20 MG TABLET PO SCH (12:30)
[2018-05-12] MEDS: MAGNESIUM SULFATE/D5W 1 GM/100 ML RTUPB IV SCH ×2 (12:59→13:53)
--- NOTE | 2018-05-12 13:22 | PDOC H&P ---
History of Present Illness Admission Date/PCP: 05/12/18 00:34 ROB RILEY MD Patient complains of: Shortness of the breath History of Present Illness: MARGE ORTEGA is a 57 year old male This is a 57-year-old male with a history of the chronic kidney disease c urrently see Dr. Nam with a baseline creatinine between 4 and 5 with a history of the hypertension's hyperlipidemia came to the emergency department because of the complaint of shortness of the breath and respiratory distress and patients found and put in the BiPAP with acute pulmonary edema and given Lasix and started on nitro drip Patient was extremely hypertensive when the present Patient have a recently have a stress test and echocardiogram done at the transplant clinic in [place] was all normal Patient eat some salty food before this happened but usually watch the diet When I saw the patient in the ER patient is denied any chest pain to than any shortness of the breath Patient is back to the nasal cannula Patient's creatinine was 7.32 Dr. Nam already consulted for possible hemodialysis versus peritoneal dialysis Past Medical History Cardiac Medical History: Reports: Hypertension Pulmonary Medical History: Denies: Tuberculosis Renal/ Medical History: Reports: Chronic Kidney Disease GI Medical History: Reports: Gastroesophageal Reflux Disease Musculoskeltal Medical History: Reports: Gout Psychiatric Medical History: Denies: Depression Past Surgical History Past Surgical History: Denies: Pacemaker Social History Lives with: Spouse/Significant other Smoking Status: Never Smoker Frequency of Alcohol Use: None Hx Recreational Drug Use: No Hx Prescription Drug Abuse: No Family History Family History: Reviewed & Not Pertinent Parental Family History Reviewed: Yes Children Family History Reviewed: Yes Sibling(s) Family History Reviewed.: Yes Medication/Allergy Home Medications: Calcitriol [Rocaltrol 0.25 mcg Capsule] 0.25 mcg PO DAILY 09/27/16 Febuxostat [Uloric 80 mg Tablet] 80 mg PO DAILY 09/27/16 Metoprolol Tartrate [Lopressor 50 mg Tablet] 50 mg PO Q12 09/27/16 Sodium Bicarbonate [Sodium Bicarbonate 650 mg Tablet] 650 mg PO Q12 #60 tablet 09/29/16 Atorvastatin Calcium [Lipitor 20 mg Tablet] 20 mg PO DAILY 05/12/18 Tamsulosin HCl [Flomax 0.4 mg Cap.sr] 0.4 mg PO DAILY 05/12/18 Verapamil HCl [Verapamil ER] 180 mg PO DAILY 05/12/18 Allergies/Adverse Reactions: doxycycline Allergy (Verified 05/12/18 10:34) Review of Systems Constitutional: ABSENT: chills, fever(s), headache(s), weight gain, weight loss Eyes: ABSENT: visual disturbances Ears: ABSENT: hearing changes Cardiovascular: PRESENT: chest pain, dyspnea on exertion. ABSENT: edema, orthropnea, palpitations Respiratory: ABSENT: cough, hemoptysis Gastrointestinal: ABSENT: abdominal pain, constipation, diarrhea, hematemesis, hematochezia, nausea, vomiting Genitourinary: ABSENT: dysuria, hematuria Musculoskeletal: ABSENT: joint swelling Integumentary: ABSENT: rash, wounds Neurological: ABSENT: abnormal gait, abnormal speech, confusion, dizziness, focal weakness, syncope Psychiatric: ABSENT: anxiety, depression, homidical ideation, suicidal ideation Endocrine: ABSENT: cold intolerance, heat intolerance, menstrual abnormalities, polydipsia, polyuria Hematologic/Lymphatic: ABSENT: easy bleeding, easy bruising, lymphadenopathy Physical Exam Vital Signs: Temp Pulse Resp BP Pulse Ox 98.5 F 17 140/88 H 99 05/12/18 03:00 05/12/18 12:50 05/12/18 12:50 05/12/18 12:50 Intake & Output 05/11/18 05/12/18 05/13/18 06:59 06:59 06:59 Intake Total 355 133 Output Total 800 Balance -445 133 Weight 118.8 kg General appearance: PRESENT: no acute distress, well-developed, well-nourished Head exam: PRESENT: atraumatic, normocephalic Eye exam: PRESENT: conjunctiva pink, EOMI, PERRLA. ABSENT: scleral icterus Ear exam: PRESENT: normal external ear exam Mouth exam: PRESENT: moist, tongue midline Neck exam: PRESENT: full ROM. ABSENT: carotid bruit, JVD, lymphadenopathy, thyromegaly Respiratory exam: PRESENT: clear to auscultation richard Cardiovascular exam: PRESENT: RRR, +S1, +S2. ABSENT: diastolic murmur, rubs, systolic murmur Vascular exam: PRESENT: normal capillary refill GI/Abdominal exam: PRESENT: normal bowel sounds, soft. ABSENT: distended, guarding, mass, organolmegaly, rebound, tenderness Rectal exam: PRESENT: deferred Neurological exam: PRESENT: alert, awake, oriented to person, oriented to place, oriented to time, oriented to situation, CN II-XII grossly intact. ABSENT: motor sensory deficit Psychiatric exam: PRESENT: appropriate affect, normal mood. ABSENT: homicidal ideation, suicidal ideation Skin exam: PRESENT: dry, intact, warm. ABSENT: cyanosis, rash Results Laboratory Results: 05/11/18 22:19 05/12/18 04:07 05/11/18 05/11/18 05/12/18 22:19 22:19 04:07 WBC 10.5 RBC 3.36 L Hgb 10.3 L Hct 32.2 L MCV 96 MCH 30.7 MCHC 32.1 RDW 13.6 Plt Count 224 Seg Neutrophils % 59.7 Lymphocytes % 27.7 Monocytes % 8.2 Eosinophils % 3.5 Basophils % 0.9 Absolute Neutrophils 6.3 Absolute Lymphocytes 2.9 Absolute Monocytes 0.9 Absolute Eosinophils 0.4 Absolute Basophils 0.1 Sodium 142.7 141.9 Potassium 5.0 5.7 H Chloride 112 H 114 H Carbon Dioxide 21 L 20 L Anion Gap 10 8 BUN 51 H 51 H Creatinine 7.34 H 7.35 H Est GFR ( Amer) 9 L 9 L Est GFR (Non-Af Amer) 8 L 8 L Glucose 106 149 H Calcium 8.2 L 7.7 L Magnesium 1.2 L* Total Bilirubin 0.2 AST 26 ALT 23 Alkaline Phosphatase 134 H Total Protein 6.9 Albumin 3.8 05/11/18 05/12/18 05/12/18 22:19 04:07 04:07 Creatine Kinase 804 H CK-MB (CK-2) 2.68 Troponin I < 0.012 < 0.012 NT-Pro-B Natriuret Pep 8080 H 05/12/18 05/12/18 10:56 10:56 Creatine Kinase 730 H CK-MB (CK-2) 2.14 Troponin I < 0.012 NT-Pro-B Natriuret Pep Impressions: Chest X-Ray 05/11/18 23:04 IMPRESSION: Right basilar atelectasis. Assessment & Plan - Diagnosis (1) Flash pulmonary edema Is this a current diagnosis for this admission?: Yes Plan: Patient is giving the Lasix and nitro drips and a put on BiPAP currently all improving Continues to rule out underlying coronary disease well the patient's initial workup in [place] within the last 6 months was all stable will order the 2D echocardiogram and consult the cardiology Possible underlying worsening the kidney functions we consulted Dr. Nam Get the VQ scan to rule out any PE (2) Acute kidney injury superimposed on chronic kidney disease Is this a current diagnosis for this admission?: Yes Plan: Will get the consult nephrology (3) Hypomagnesemia Is this a current diagnosis for this admission?: Yes Plan: Replace the magnesium (4) Respiratory distress Is this a current diagnosis for this admission?: Yes Plan: To the flash pulmonary edema currently getting better (5) Chest pain Qualifiers: Chest pain type: unspecified Qualified Code(s): R07.9 - Chest pain, unspecified Is this a current diagnosis for this admission?: Yes Plan: Most likely due to the elevated blood pressure and of less pulmonary edema initial cardiac enzyme is all negative will consult the cardiology (6) Hypertension Qualifiers: Hypertension type: essential hypertension Qualified Code(s): I10 - Ess ential (primary) hypertension Is this a current diagnosis for this admission?: Yes - Time Time Spent: 50 to 70 Minutes Medications reviewed and adjusted accordingly: Yes Anticipated discharge: Home Within: Other - Inpatient Certification Based on my medical assessment, after consideration of the patient's comorbidities, presenting symptoms, or acuity I expect that the services needed warrant INPATIENT care.: Yes I certify that my determination is in accordance with my understanding of Medicare's requirements for reasonable and necessary INPATIENT services [42 CFR 412.3e].: Yes Medical Necessity: Significant Comorbidiites Make Outpatient Treatment Too Risky, Need Close Monitoring Due to Risk of Patient Decompensation Post Hospital Care: D/C Cartridge Filler Documentation - Plan Summary Plan Summary: Admit the patient see MD orders
[2018-05-12] MEDS: METOPROLOL TARTRATE 50 MG TABLET PO SCH ×2 (13:39→21:25)
[2018-05-12] MEDS: CALCITRIOL 0.25 MCG CAPSULE PO SCH (13:39)
[2018-05-12] MEDS: VERAPAMIL HCL 180 MG TABLET.SA PO SCH (13:40)
[2018-05-12] MEDS: TAMSULOSIN HCL 0.4 MG CAP.SR.24H PO SCH (13:40)
[2018-05-12] MEDS: SODIUM BICARBONATE 650 MG TABLET PO SCH ×2 (13:40→21:26)
[2018-05-12] MEDS: FEBUXOSTAT 80 MG TABLET PO SCH (13:40)
[2018-05-12] MEDS ORDERED: ACETAMINOPHEN 325 MG TABLET PO PRN (14:08)
--- NOTE | 2018-05-12 14:26 | XCELERA REPORT ---
[address] [address] Transthoracic Echocardiogram Report Name: MARGE ORTEGA Age: 57 yrs Gender: Male : 1960 Patient Status: Inpatient Patient Location: [place] [address]^A Study Date: 05/12/2018 10:10 AM Height: 77 in Weight: 261 lb BSA: 2.5 m2 Procedure: A two-dimensional transthoracic echocardiogram with color flow and Doppler was performed. Study Quality: Fair. Reason For Study: CHF History: CHF. Ordering Physician: ROB RILEY Performed By: Iain Gonzalez Interpretation Summary The left ventricle is mildly dilated. There is mild concentric left ventricular hypertrophy. LV EF is 45% T0 50% Left ventricular systolic function is mildly reduced. Doppler measurements suggest impaired left ventricular relaxation, which is associated with grade I/IV or mild diastolic dysfunction There is mild global hypokinesis of the left ventricle. There is no thrombus. There is no ventricular septal defect visualized. The right atrium is normal. The left atrium is mildly dilated. The interatrial septum is intact with no evidence for an atrial septal defect. There is no Doppler evidence for an interatrial shunt There is no evidence of mitral valve prolapse. There is no vegetation seen on the mitral valve. There is no mitral valve stenosis. There is a moderate amount of mitral regurgitation There is no aortic valvular vegetation. There is no aortic valve stenosis There is no LVOT obstruction. There is a mild amount of aortic regurgitation There is no tricuspid stenosis. There is a trace amount of tricuspid regurgitation Unable to calculate RVSP due to lack of TR jet. There is no pulmonic valvular stenosis. There is no pulmonic valvular regurgitation. The aortic root is normal size. The inferior vena cava appeared normal and decreased > 50% with respiration (RAP 5-10 mmHg) There is no pericardial effusion. MMode/2D Measurements & Calculations RVDd: 2.2 cm LVIDd: 6.3 cm FS: 19.2 % Ao root diam: 3.0 cm IVSd: 1.3 cm LVIDs: 5.1 cm EDV(Teich): LVPWd: 1.3 cm 201.9 ml Ao root area: ESV(Teich): 7.0 cm2 123.8 ml LA dimension: EF(Teich): 38.7 % 4.5 cm LVLd ap4: 9.1 cm SV(MOD-sp4): EDV(MOD-sp4): 76.0 ml 165.0 ml LVLs ap4: 8.1 cm ESV(MOD-sp4): 89.0 ml EF(MOD-sp4): 46.1 % Doppler Measurements & Calculations MV E max tea: MV P1/2t max tea: Ao V2 max: AI max tea: 62.4 cm/sec 94.1 cm/sec 131.1 cm/sec 481.1 cm/sec MV A max tea: MV P1/2t: 82.5 msec Ao max P.9 mmHgAI max P.3 cm/sec MVA(P1/2t): 2.7 cm2 92.6 mmHg MV E/A: 0.55 MV dec slope: AI dec slope: 266.6 cm/sec2 334.0 cm/sec2 AI P1/2t: MV dec time: 528.7 msec 0.17 sec LV V1 max PG: PA V2 max: AV P1/2t-pr_phl: MV P1/2t-pr_phl: 1.6 mmHg 73.5 cm/sec 528.7 msec 82.5 msec LV V1 max: PA max P.2 mmHg 62.8 cm/sec Left Ventricle The left ventricle is mildly dilated. There is mild concentric left ventricular hypertrophy. LV EF is 45% T0 50%. Left ventricular systolic function is mildly reduced. Doppler measurements suggest impaired left ventricular relaxation, which is associated with grade I/IV or mild diastolic dysfunction. There is mild global hypokinesis of the left ventricle. There is no thrombus. There is no ventricular septal defect visualized. Right Ventricle The right ventricle is normal in size and function. Atria The right atrium is normal. The left atrium is mildly dilated. The interatrial septum is intact with no evidence for an atrial septal defect. There is no Doppler evidence for an interatrial shunt. Mitral Valve There is no evidence of mitral valve prolapse. There is no vegetation seen on the mitral valve. There is no mitral valve stenosis. There is a moderate amount of mitral regurgitation. Aortic Valve There is no aortic valvular vegetation. There is no aortic valve stenosis. There is no LVOT obstruction. There is a mild amount of aortic regurgitation. Tricuspid Valve There is no tricuspid stenosis. There is a trace amount of tricuspid regurgitation. Unable to calculate RVSP due to lack of TR jet. Pulmonic Valve There is no pulmonic valvular stenosis. There is no pulmonic valvular regurgitation. Great Vessels The aortic root is normal size. The inferior vena cava appeared normal and decreased > 50% with respiration (RAP 5-10 mmHg). Effusions There is no pericardial effusion. : ROB RILEY > Yohana Fuentes
[2018-05-12] MEDS ORDERED: CALCIUM GLUCONATE 1000 MG/10 ML INJ IV ONE ×2 (14:30→17:00)
[2018-05-12] MEDS ORDERED: PATIROMER 8.4 GM SUSP PACKET PO ONE ×2 (14:30→17:00)
--- NOTE | 2018-05-12 15:32 | RADIOLOGY REPORT (SQ) ---
EXAM DESCRIPTION: NM LUNG VENT/PERF SCAN COMPLETED DATE/TIME: 05/12/2018 3:23 pm REASON FOR STUDY: sob COMPARISON: Chest radiograph, 05/11/2018 RADIONUCLIDE AND DOSE: 5.2 millicuries TC-99m MAA Intravenous 32.3 millicuries TC-99m DTPA Inhaled aerosol TECHNIQUE: Eight views of the lungs acquired post ventilation of DTPA aerosol. Eight matching views of the lungs acquired following injection of MAA. LIMITATIONS: None. FINDINGS: VENTILATION: Symmetric and homogeneous distribution of DTPA aerosol during ventilatory pha se. No significant areas of photopenia. PERFUSION: Perfusion images with normal homogenous activity and no wedge-shaped or segmental defects. No ventilation-perfusion mismatches. OTHER: No other significant finding. IMPRESSION: NORMAL VENTILATION-PERFUSION LUNG SCAN. NEGATIVE FOR PULMONARY EMBOLI. TECHNICAL DOCUMENTATION: JOB ID: [id number] [employer]- All Rights Reserved Reading location - IP/workstation name: [email or web address]
--- NOTE | 2018-05-12 15:37 | RADIOLOGY REPORT (SQ) ---
EXAM DESCRIPTION: CT CHEST WITHOUT COMPLETED DATE/TIME: 05/12/2018 3:20 pm REASON FOR STUDY: sob COMPARISON: AP chest 05/11/2018, 09/27/2016 CT chest 09/27/2016 TECHNIQUE: CT scan performed of the chest without intravenous contrast. Images reviewed with lung, soft tissue and bone windows. Reconstructed coronal and sagittal MPR images reviewed. All images st ored on PACS. All CT scanners at this facility use dose modulation, iterative reconstruction, and/or weight based d osing when appropriate to reduce radiation dose to as low as reasonably achievable (ALARA). [facility]: Dose Right [facility]: CareDose [facility]: Dose Right [facility]: Teradose 4D [facility]: [employer] RADIATION DOSE: CT Rad equipment meets quality standard of care and radiation dose reduction techniq ues were employed. CTDIvol: 14.2 mGy. DLP: 572 mGy-cm. mGy. LIMITATIONS: No technical limitations. FINDINGS: LUNGS AND PLEURA: Trace bilateral pleural effusions layer dependently in the chest. There is minimal dependent atelectasis in the right and left posterior costophrenic sulci. No fluffy alveolar infiltrates worrisome for edema or pneumonia. Less than 5 mm calcified granuloma right upper lobe unchanged since prior imaging from 2017, benign. No pneumothorax HILAR AND MEDIASTINAL STRUCTURES: 1.5 x 1 cm prevascular lymph node axial image 19. No other hilar o r mediastinal adenopathy. Small hiatal hernia HEART AND VASCULAR STRUCTURES: No aneurysm. No pericardial effusion. UPPER ABDOMEN: No significant findings. Limited exam. THYROID AND OTHER SOFT TISSUES: No masses. No adenopathy. BONES: No significant finding. HARDWARE: None in the chest. OTHER: No other significant findings. IMPRESSION: Trace bilateral pleural effusions with minimal bibasilar atelectasis TECHNICAL DOCUMENTATION: JOB ID: [id number] Quality ID # [id number]: Final reports with documentation of one or more dose reduction techniques (e.g., Au tomated exposure control, adjustment of the mA and/or kV according to patient size, use of iterative reconstruction technique) 2010 [employer]- All Rights Reserved Reading location - IP/workstation name: [email or web address]
[2018-05-12] MEDS: MAGNESIUM OXIDE 400 MG TABLET PO SCH (17:21)
[2018-05-12] MEDS ORDERED: NITROGLYCERIN 2% OINTMENT 1 GM PACKET TP SCH (18:00)
[2018-05-12 18:18] LABS: ANION GAP 11 (5-19); BLOOD UREA NITROGEN 49 mg/dL (7-20); CALCIUM 9.2 mg/dL (8.4-10.2); CARBON DIOXIDE 20 mmol/L (22-30); CHLORIDE 112 mmol/L (98-107); CREATINE KINASE 710 U/L (55-170); GLUCOSE 97 mg/dL (75-110); POTASSIUM 4.9 mmol/L (3.6-5.0); SODIUM 142.6 mmol/L (137-145)
[2018-05-12 18:26] LABS: CREATINE KINASE MB 2.13 ng/mL (<4.55)
[2018-05-12 18:29] LABS: TROPONIN I < 0.012 ng/mL
--- NOTE | 2018-05-12 22:19 | PDOC CONSULTATION ---
Consultation-Blank Consultation: CARDIOLOGY CONSULTATION by Dr. Yohana Fuentes on 05/12/2018. Patient seen at 4:30 PM on 05/12/2018. REASON FOR CONSULTATION: Acute CHF.. SUBJECTIVE: Patient is a 57-year-old Afro-[place] male with known history of hypertension and hyperlipidemia and chronic kidney disease with a baseline creatinine of 4.5, and who has had a workup in the recent past in January 2018 for possible renal transplant, states that he ate a lot of salty soup from [employer] yesterday. Subsequently a few hours later the patient was lying down and sudden onset had orthopnea shortness of breath PND and a heavy pressure-like sensation in the chest. He states he also had wheezing. He denies any cough or sputum production. This escalated, and he called 911. He was brought to the emergency room and was placed on BiPAP, and given IV Lasix, and also started on IV nitro glycerin drip, and his symptoms improved dramatically. The patient at present is able to lie down flat, and is asymptomatic. The patient denies any palpitations or leg edema or syncope. HISTORY of PRESENT ILLNESS: Patient has history of hypertension. He has a history of chronic kidney disease stage V. He also has hyperlipidemia. There is no prior history of coronary artery disease, or myocardial infarction, or anginal symptoms. This he states is the first time he has had such episodes of heart failure. There is no palpitations, no history of syncope or near syncope. Complains of PND orthopnea and chest pain like of severe heaviness/pressure in the chest when he had the symptoms. He has had a stress test in January 2018 as a workup of his renal transplant placement, and this showed that this was not a very good study due to patient motion as well as diaphragmatic heart attenuation artifact. 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 His echocardiogram at that time showed a LV ejection fraction of 50%. The left ventricle being mildly dilated. There is moderate concentric left ventricle hypertrophy. The left ventricle ejection fraction is low normal. There is basal inferior and inferoseptal subendocardial region is hypoechoic suggesting an old nontransmural infarction LV ejection fraction was cannulated at 53%. The left atrium is severely increased. The interatrial septum bows towards the right atrium consistent with elevated left atrial pressure. There was no aortic stenosis, there is mild aortic regurgitation. There is mild to moderate mitral regurgitation. Without any mention of mitral stenosis. There was trace tricuspid regurgitation right ventricle systolic pressure was elevated at 25-30 mmHg. There was trace/trivial pericardial effusion. PAST MEDICAL HISTORY: History of hypertension, history of hyperlipidemia "present this is the first episode of congestive heart failure in this patient. History of chronic kidney disease stage V. Not yet on dialysis. Patient being worked up for renal transplant. No history of diabetes mellitus. No history of TIA CVA. No history of coronary artery disease. No history of thyroid disease. No history of cardiac arrhythmia. No history of sudden or syncope.``` PAST surgical history: No known surgeries ALLERGIES: No known allergies. FAMILY HISTORY: Positive for hypertension, negative for coronary artery disease or premature adverse cardiac events, or sudden . SOCIAL HISTORY: The patient is a non-smoker. There is no history of EtOH abuse. DISPOSITION: The patient is a full code. His is his surrogate healthcare decision maker. REVIEW SYSTEMS: CONSTITUTIONAL: Denies fever chills or rigors. Denies generalized fatigue or weakness. HEAD: Denies headaches or head injury. EYES: No history of amblyopia diplopia. No history of amaurosis fugax. EARS: No history of hearing loss no history of tinnitus no vertigo. NOSE: No history of hayfever. No history of nosebleeds. MOUTH: No history of altered taste sensation. No ulcers in the mouth. No bleeding from the gums. THROAT: No history of odynophagia or dysphagia. No history of recurrent sore throats. SKIN: No history of pruritus. No history of yellowish discoloration of the skin. No history of psoriasis. NECK: No history of neck pain. No history of swelling in the neck. No goiter. LUNGS: No history of asthma or COPD no history of cough or sputum production no history of sleep apnea. No history of pulmonary embolism. No history of pleuritic chest pain no history of hemoptysis. No symptoms suggestive of upper or lower respiratory tract infections. HEART: History of hypertension present no history of OR or anginal symptoms. But a stress test was suggestive of a nontransmural OR in the basal inferior wall, his echocardiogram showed low normal LV ejection fraction. Patient admitted with symptoms of acute heart failure. No history of cardiac arrhythmia. No sick palpitations or syncope. No leg edema. GI: No history of GERD. No history of peptic ulcer disease. No history of GI bleed. No history of altered bowel movements. No history of jaundice. No history of fatty food intolerance. No history of hepatitis. ENDOCRINE: No history of diabetes mellitus. No history of thyroid disease. No history of polydipsia polyuria. No history of heat or cold intolerance. RENAL: History of chronic kidney disease stage V patient being considered for renal transplant history of symptoms of enlarged prostate controlled with medication that is Flomax. Muscular skeletal denies arthritis or collagen vascular disease. METABOLIC: Past history of gout present none recently. History of hyperlipidemia present. No history of significant obesity. PRACTICAL NURSE CLINICAL COORDINATOR: No history of TIA CVA. No history of headaches migraines or seizures. No history of gait imbalance. PSYCHIATRIC: No history of anxiety or depression. No history of suicidal ideation. No history of homicidal ideation. Vascular scratch that VASCULAR no history of calf or buttock claudication. No history of DVT. HEMATOLOGICAL: No history of bleeding diathesis. No history of clotting disorders. PHYSICAL EXAMINATION: The patient is well-built and well-nourished. In no acute distress. He is well-groomed. At present the patient is able to lie down flat without problems. ` Selected Entries 05/12/18 15:47 Temperature 97.8 F Temperature Oral Source Pulse Rate 91 Respiratory 20 Rate Blood Pressure 145/80 H Blood Pressure 101 Mean BP Location Left Arm BP Position Sitting O2 Sat by Pulse 97 Oximetry Oxygen Delivery Room Air Method HEAD: Is atraumatic normocephalic. EYES: Pupils are equal round regular reactive to light and accommodation. Extraocular movements are normal. There is no conjunctival pallor. There is no scleral icterus. EARS: Tympanic membranes are intact. External auditory canals are clear. NOSE: There is no deviated nasal septum. There is no inflammation of the nasal mucous membrane. MOUTH: Mucous members of mouth are moist tongue is moist there is no ulcers there is no bleeding from the gums. THROAT: There is no redness of the oropharynx. There is no exudates. SKIN: There is no skin lesions or skin rashes. There is no petechia or ecchymosis. NECK: Is supple at present there is no JVD. Carotids equal there is no bruit there is no lymphadenopathy. There is no goiter there is no accessory muscle respiration use. Trachea central. LUNGS: At present lungs are clear without any rhonchi rales or wheezing. There are no rales of CHF at present. HEART: S1-S2 is heard there is no S3 gallop. There is no S4 gallop. There is systolic murmur left sternal border and apex. There is murmur of mild mitral regurgitation heard from the apex bradycardia with radiation to the left axilla. There is no rub ABDOMEN: Soft. Nontender. There is no hepatosplenic megaly. Bowel sounds well heard. There is no rebound guarding or rigidity. EXTREMITIES: Femorals are well felt. There is no femoral bruits. Leg pulses are well felt. There is no pedal edema. There is no DVT or cellulitis. There is no calf tenderness. There is no sinus or clubbing. Capillary refill is normal. PRACTICAL NURSE CLINICAL COORDINATOR: The patient is conscious awake alert oriented x3 with no focal deficits. PSYCHIATRIC: The patient judgment insight are intact his affect is normal. Current Medications Generic Name Dose Route Start Last Admin Trade Name Freq PRN Reason Stop Dose Admin Acetaminophen 650 mg 05/12/18 14:08 Tylenol 325 Mg Tablet PO 06/11/18 14:07 Q8HP PRN FOR PAIN OR TEMP Albuterol/Ipratropium 3 ml 05/12/18 00:08 Duoneb 3 Ml Ampul NEB 06/11/18 00:07 RTQ4HP PRN SHORTNESS OF BREATH Atorvastatin Calcium 20 mg 05/13/18 22:00 Lipitor 20 Mg Tablet PO 06/12/18 21:59 QHS DARRION Calcitriol 0.25 mcg 05/12/18 12:30 05/12/18 13:39 Rocaltrol 0.25 Mcg Capsule PO 06/11/18 12:29 0.25 mcg DAILY DARRION Administration Febuxostat 80 mg 05/12/18 12:30 05/12/18 13:40 Uloric 80 Mg Tablet PO 06/11/18 12:29 80 mg DAILY DARRION Administration Furosemide 40 mg 05/12/18 06:00 05/12/18 21:26 Lasix Inj/Pf 40 Mg/4 Ml Sdv IV 06/11/18 05:59 40 mg Q8 DARRION Administration Heparin Sodium (Porcine) 5,000 unit 05/12/18 06:00 05/12/18 21:26 Heparin Inj 5,000 Units/Ml 1 Ml Syringe SUBCUT 06/11/18 05:59 5,000 unit Q8 DARRION Administration Isosorbide Mononitrate 30 mg 05/13/18 10:00 Imdur 30 Mg Tablet.Er PO 06/12/18 09:59 DAILY DARRION Lansoprazole 30 mg 05/13/18 06:00 Prevacid 30 Mg Odt Tablet PO 06/11/18 05:59 Q6AM DARRION Magnesium Oxide 400 mg 05/12/18 18:00 05/12/18 17:21 Mag-Ox 400 Mg Tablet PO 06/11/18 17:59 400 mg BID DARRION Administration Metoprolol Tartrate 50 mg 05/12/18 12:30 05/12/18 21:25 Lopressor 50 Mg Tablet PO 06/11/18 12:29 50 mg Q12 DARRION Administration Sodium Bicarbonate 650 mg 05/12/18 12:30 05/12/18 21:26 Sodium Bicarbonate 650 Mg Tablet PO 06/11/18 12:29 650 mg Q12 DARRION Administration Sodium Chloride 2.5 ml 05/12/18 06:00 05/12/18 21:26 Saline Flush 2.5 Ml Monoject Prefil Syrin IV 06/11/18 05:59 2.5 ml Q8 DARRION Administration Tamsulosin HCl 0.4 mg 05/12/18 12:30 05/12/18 13:40 Flomax 0.4 Mg Cap.Sr PO 06/11/18 12:29 0.4 mg DAILY DARRION Administration Verapamil HCl 180 mg 05/12/18 12:30 05/12/18 13:40 Calan Sr 180 Mg Tablet.Sa PO 06/11/18 12:29 180 mg DAILY DARRION Administration Discontinued Medications Generic Name Dose Route Start Last Admin Trade Name Freq PRN Reason Stop Dose Admin Acetaminophen 650 mg 05/12/18 00:08 05/12/18 13:39 Tylenol 325 Mg Tablet PO 06/11/18 00:07 650 mg Q4HP PRN Administration FOR PAIN OR TEMP Atorvastatin Calcium 20 mg 05/12/18 12:30 05/12/18 13:40 Lipitor 20 Mg Tablet PO 06/11/18 12:29 20 mg DAILY DARRION Administration Calcium Gluconate 1,000 mg 05/12/18 14:30 05/12/18 17:17 Calcium Gluconate Inj 1000 Mg/10 Ml IV 05/12/18 14:31 Not Given NOW ONE Calcium Gluconate 1,000 mg 05/12/18 17:00 05/12/18 17:20 Calcium Gluconate Inj 1000 Mg/10 Ml IV 05/12/18 17:01 1,000 mg NOW ONE Administration Furosemide 20 mg 05/11/18 23:05 05/11/18 23:17 Lasix Inj/Pf 20 Mg/2 Ml Sdv IV 05/11/18 23:06 20 mg NOW ONE Administration Nitroglycerin/Dextrose Confirm 05/11/18 23:00 05/11/18 23:17 Ntg Rtu 50 Mg/D5w 250 Ml Iv Premix Bottle Administered 05/11/18 23:01 Not Given Dose 50 mg in 250 mls @ ud IV .STK-MED ONE Nitroglycerin/Dextrose 50 mg in 250 mls @ 0 mls/hr 05/11/18 23:05 05/12/18 12:55 Ntg Rtu 50 Mg/D5w 250 Ml Iv Premix Bottle IV 06/10/18 23:04 0 mls/hr CONTINUOUS PRN Titration THIS MED IS NOT "PRN" Protocol Titrate Magnesium Sulfate/Dextrose 1 gm in 100 mls @ 100 mls/hr 05/12/18 12:15 05/12/18 20:00 Magnesium Sulfate Rtu-D5w 1 Gm/100 Ml Premix IV 05/12/18 14:14 Infused Q1H DARRION Infusion Lansoprazole 30 mg 05/12/18 06:00 05/12/18 05:52 Prevacid 30 Mg Odt Tablet PO 06/11/18 05:59 30 mg Q6AM DARRION Administration Nitroglycerin 0.5 gm 05/12/18 18:00 05/12/18 17:21 Nitrol 2% Ointment 1gm Packet TP 06/11/18 17:59 0.5 gm Q8A DARRION Administration Patiromer 16.8 gm 05/12/18 14:30 05/12/18 17:17 Veltassa 8.4 Gm Susp Packet PO 05/12/18 14:31 Not Given NOW ONE Patiromer 16.8 gm 05/12/18 17:00 05/12/18 17:20 Veltassa 8.4 Gm Susp Packet PO 05/12/18 17:01 16.8 gm NOW ONE Administration Sodium Polystyrene Sulfonate 30 gm 05/12/18 12:30 05/12/18 13:50 Kayexalate 15 Gm/60 Ml Susp 60 Ml PO 05/12/18 12:31 Not Given NOW ONE Calcitriol [Rocaltrol 0.25 mcg Capsule] 0.25 mcg PO DAILY 09/27/16 Febuxostat [Uloric 80 mg Tablet] 80 mg PO DAILY 09/27/16 Metoprolol Tartrate [Lopressor 50 mg Tablet] 50 mg PO Q12 09/27/16 Atorvastatin Calcium [Lipitor 20 mg Tablet] 20 mg PO DAILY 05/12/18 Tamsulosin HCl [Flomax 0.4 mg Cap.sr] 0.4 mg PO DAILY 05/12/18 Verapamil HCl [Verapamil ER] 180 mg PO DAILY 05/12/18 Labs- All tests 24 hr 05/11/18 05/11/18 05/11/18 22:19 22:19 22:19 WBC 10.5 RBC 3.36 L Hgb 10.3 L Hct 32.2 L MCV 96 MCH 30.7 MCHC 32.1 RDW 13.6 Plt Count 224 Seg Neutrophils % 59.7 Lymphocytes % 27.7 Monocytes % 8.2 Eosinophils % 3.5 Basophils % 0.9 Absolute Neutrophils 6.3 Absolute Lymphocytes 2.9 Absolute Monocytes 0.9 Absolute Eosinophils 0.4 Absolute Basophils 0.1 Sodium 142.7 Potassium 5.0 Chloride 112 H Carbon Dioxide 21 L Anion Gap 10 BUN 51 H Creatinine 7.34 H Est GFR ( Amer) 9 L Est GFR (Non-Af Amer) 8 L Glucose 106 Calcium 8.2 L Magnesium Total Bilirubin 0.2 Direct Bilirubin 0.1 Neonat Total Bilirubin Not Reportable Neonat Direct Bilirubin Not Reportable Neonat Indirect Bili Not Reportable AST 26 ALT 23 Alkaline Phosphatase 134 H Creatine Kinase CK-MB (CK-2) Troponin I < 0.012 NT-Pro-B Natriuret Pep 8080 H Total Protein 6.9 Albumin 3.8 05/12/18 05/12/18 05/12/18 04:07 04:07 04:07 WBC RBC Hgb Hct MCV MCH MCHC RDW Plt Count Seg Neutrophils % Lymphocytes % Monocytes % Eosinophils % Basophils % Absolute Neutrophils Absolute Lymphocytes Absolute Monocytes Absolute Eosinophils Absolute Basophils Sodium 141.9 Potassium 5.7 H Chloride 114 H Carbon Dioxide 20 L Anion Gap 8 BUN 51 H Creatinine 7.35 H Est GFR ( Amer) 9 L Est GFR (Non-Af Amer) 8 L Glucose 149 H Calcium 7.7 L Magnesium 1.2 L* Total Bilirubin Direct Bilirubin Neonat Total Bilirubin Neonat Direct Bilirubin Neonat Indirect Bili AST ALT Alkaline Phosphatase Creatine Kinase 804 H CK-MB (CK-2) 2.68 Troponin I < 0.012 NT-Pro-B Natriuret Pep Total Protein Albumin 05/12/18 05/12/18 05/12/18 10:56 10:56 17:30 WBC RBC Hgb Hct MCV MCH MCHC RDW Plt Count Seg Neutrophils % Lymphocytes % Monocytes % Eosinophils % Basophils % Absolute Neutrophils Absolute Lymphocytes Absolute Monocytes Absolute Eosinophils Absolute Basophils Sodium 142.6 Potassium 4.9 Chloride 112 H Carbon Dioxide 20 L Anion Gap 11 BUN 49 H Creatinine 7.77 H Est GFR ( Amer) 9 L Est GFR (Non-Af Amer) 7 L Glucose 97 Calcium 9.2 Magnesium Total Bilirubin Direct Bilirubin Neonat Total Bilirubin Neonat Direct Bilirubin Neonat Indirect Bili AST ALT Alkaline Phosphatase Creatine Kinase 730 H 710 H CK-MB (CK-2) 2.14 Troponin I < 0.012 NT-Pro-B Natriuret Pep Total Protein Albumin 05/12/18 17:30 WBC RBC Hgb Hct MCV MCH MCHC RDW Plt Count Seg Neutrophils % Lymphocytes % Monocytes % Eosinophils % Basophils % Absolute Neutrophils Absolute Lymphocytes Absolute Monocytes Absolute Eosinophils Absolute Basophils Sodium Potassium Chloride Carbon Dioxide Anion Gap BUN Creatinine Est GFR ( Amer) Est GFR (Non-Af Amer) Glucose Calcium Magnesium Total Bilirubin Direct Bilirubin Neonat Total Bilirubin Neonat Direct Bilirubin Neonat Indirect Bili AST ALT Alkaline Phosphatase Creatine Kinase CK-MB (CK-2) 2.13 Troponin I < 0.012 NT-Pro-B Natriuret Pep Total Protein Albumin Chest X-Ray 05/11/18 23:04 IMPRESSION: Right basilar atelectasis. Chest CT 05/12/18 00:00 IMPRESSION: Trace bilateral pleural effusions with minimal bibasilar atelectasis my interpretation there is mild underlying heart failure. Lung Scan-[facility] 05/12/18 00:00 IMPRESSION: NORMAL VENTILATION-PERFUSION LUNG SCAN. NEGATIVE FOR PULMONARY EMBOLI. EKG: Shows sinus rhythm. High QRS voltage. Diffuse minor nonspecific T changes. The patient's echocardiogram shows that the left ventricle is mildly dilated. There is mild concentric left ventricular hypertrophy there is mildly reduced LV systolic function with a LV ejection fraction of 45% to 50%. There is grade 1/4 or mild diastolic dysfunction. There is mild global hypokinesis of the left ventricle. The left atrium is mildly dilated. There is moderate amount of mitral regurgitation. There is no mitral valve stenosis or mitral prolapse. There is no aortic stenosis. There is mild amount of aortic regurgitation. There is trace amount of tricuspid regurgitation. Unable to castrate RVSP due to lack of the TR jet. There is no pericardial effusion. IMPRESSION/RECOMMENDATION: 1. Acute left ventricle systolic heart failure: The differential diagnosis is whether this is due to volume overload due to increased sodium intake in a patient with compromised renal function versus ischemic mitral regurgitation. Would recommend adding Imdur. The patient now is back to baseline. I have discussed with the widened cardiology/[facility] cardiology regarding a patient getting a stress echo on the patient to see if the patient indeed has exercise-induced ischemic mitral regurgitation. 2. Chronic kidney disease stage V: Not yet on dialysis. Patient counseled regarding compliance with diet, salt, and medications. Nephrology on the case. Continue his current renal medications. 3. Hypertension: Continue his current antihypertensives. 4. Hyperlipidemia: Continue statin 5. Coronary artery disease by stress testing which shows nontransmural infarct on the stress test involving the basal inferior wall. Note that the patient had severe chest pressure/heaviness when he had the symptoms of heart failure, which could be secondary to angina. Hence would add isosorbide mononitrate 30 mg p.o. daily, to his current medications. 6. Renal transplant candidacy. Medications reviewed medications adjusted. New medications added. Discussed the case with the fuel operator and attending physician on the case.. Discussed with the patient and patient's family. Recommend getting outpatient stress echocardiogram for reasons mentioned above. Note 60 minutes spent on this patient with more than 50% of time spent in direct patient care. Medical decisi on making is of high complexity. ```
[2018-05-13 05:21] LABS: HEMOGLOBIN 10.1 g/dL (13.5-17.0); MEAN CORPUSCULAR HEMOGLOBIN 31.3 pg (27.0-33.4); MEAN CORPUSCULAR HGB CONC 33.8 g/dL (32.0-36.0); MEAN CORPUSCULAR VOLUME 93 fl (80-97); PLATELET COUNT 187 10^3/uL (150-450); RED BLOOD COUNT 3.24 10^6/uL (4.35-5.55); RED CELL DISTRIBUTION WIDTH 13.8 % (11.5-14.0); WHITE BLOOD COUNT 7.7 10^3/uL (4.0-10.5)
[2018-05-13 05:33] LABS: INTERNATIONAL RATION (INR) 1.06; PROTHROMBIN TIME 14.3 SEC (11.4-15.4)
[2018-05-13 05:41] LABS: ALANINE AMINOTRANSFERASE 29 U/L (21-72); ALBUMIN 3.9 g/dL (3.5-5.0); ALKALINE PHOSPHATASE 128 U/L (38-126); ANION GAP 13 (5-19); ASPARTATE AMINO TRANSFERASE 23 U/L (17-59); BILIRUBIN,DIRECT 0.2 mg/dL (0.0-0.4); BILIRUBIN,TOTAL 0.4 mg/dL (0.2-1.3); BLOOD UREA NITROGEN 52 mg/dL (7-20); CALCIUM 8.8 mg/dL (8.4-10.2); CARBON DIOXIDE 19 mmol/L (22-30); CHLORIDE 109 mmol/L (98-107); GLUCOSE 90 mg/dL (75-110); POTASSIUM 4.9 mmol/L (3.6-5.0); SODIUM 140.7 mmol/L (137-145); TOTAL PROTEIN 6.9 g/dL (6.3-8.2)
[2018-05-13] MEDS ORDERED: LANSOPRAZOLE 30 MG TAB.RAP.DR PO SCH (06:00)
[2018-05-13] MEDS: HEPARIN SOD (PORCINE) 5,000 UNIT/ML 1 ML SYRINGE SUBCUT SCH ×2 (06:24→13:53)
[2018-05-13] MEDS: FUROSEMIDE INJ/PF 40 MG/4 ML SDV IV SCH ×2 (06:24→13:53)
[2018-05-13] MEDS: TAMSULOSIN HCL 0.4 MG CAP.SR.24H PO SCH (09:06)
[2018-05-13] MEDS: SODIUM BICARBONATE 650 MG TABLET PO SCH (09:06)
[2018-05-13] MEDS: METOPROLOL TARTRATE 50 MG TABLET PO SCH (09:06)
[2018-05-13] MEDS: MAGNESIUM OXIDE 400 MG TABLET PO SCH (09:06)
[2018-05-13] MEDS: VERAPAMIL HCL 180 MG TABLET.SA PO SCH (09:06)
[2018-05-13] MEDS: CALCITRIOL 0.25 MCG CAPSULE PO SCH (09:06)
[2018-05-13] MEDS: FEBUXOSTAT 80 MG TABLET PO SCH (09:06)
[2018-05-13] MEDS ORDERED: VERAPAMIL HCL 180 MG PO SCH (10:00)
[2018-05-13] MEDS ORDERED: ISOSORBIDE MONONITRATE 30 MG TAB.ER.24H PO SCH (10:00)
--- NOTE | 2018-05-13 15:32 | PDOC DISCHARGE SUMMARY ---
General - Admit/Disc Date/PCP Admission Date/Primary Care Provider: 05/12/18 00:34 ROB RILEY MD Discharge Date: 05/13/18 - Discharge Diagnosis (3) Flash pulmonary edema Is this a current diagnosis for this admission?: Yes - Additional Information Resuscitation Status: Full Code Discharge Diet: Cardiac Discharge Activity: Activity As Tolerated, Weigh Daily Prescriptions: Isosorbide Mononitrate [Imdur 30 mg Tablet.er] 30 mg PO DAILY #30 tab.er.24h Metoprolol Succinate 200 mg PO DAILY #30 tab.er.24h Home Medications: Calcitriol [Rocaltrol 0.25 mcg Capsule] 0.25 mcg PO DAILY 09/27/16 Febuxostat [Uloric 80 mg Tablet] 80 mg PO DAILY 09/27/16 Sodium Bicarbonate [Sodium Bicarbonate 650 mg Tablet] 650 mg PO Q12 #60 tablet 09/29/16 Atorvastatin Calcium [Lipitor 20 mg Tablet] 20 mg PO DAILY 05/12/18 Tamsulosin HCl [Flomax 0.4 mg Cap.sr] 0.4 mg PO DAILY 05/12/18 Isosorbide Mononitrate [Imdur 30 mg Tablet.er] 30 mg PO DAILY #30 tab.er.24h 05/13/18 Metoprolol Succinate 200 mg PO DAILY #30 tab.er.24h 05/13/18 History of Present Illness History of Present Illness: MARGE ORTEGA is a 57 year old male patient with a history of chronic kidney disease stage V on transplant list, he presented to the emergency room with shortness of breath, chest x-ray suggests pulmonary edema Hospital Course Hospital Course: He has a history of CKD stage V, he presented to the emergency room with shortness of breath, chest x-ray suggests acute pulmonary edema. Patient said the symptoms was acute onset after he had a high salt diet, [employer] soup. He was admitted for evaluation was seen by nephrology cardiology a 2D echo was done, a 2D echo demonstrated mild concentric LVH estimated ejection fraction about 50%. He also had hyperkalemia, this was treated with Veltassa. I saw the patient on the floor today presently asymptomatic, he was seen by Dr. Fuentes, cardiology, he recommended that patient could be discharged home, the 2D echo suggests cardiomyopathy, he was taken off verapamil, the dose of the metoprolol was increased and this was changed to metoprolol succinate Physical Exam Vital Signs: Temp Pulse Resp BP Pulse Ox 98.4 F 73 18 114/68 99 05/13/18 11:31 05/13/18 14:00 05/13/18 11:31 05/13/18 11:31 05/13/18 11:31 Intake & Output 05/12/18 05/13/18 05/14/18 06:59 06:59 06:59 Intake Total 355 773 Output Total 800 Balance -445 773 Weight 118.8 kg 113.6 kg General appearance: PRESENT: no acute distress, well-developed, well-nourished Head exam: PRESENT: atraumatic, normocephalic Eye exam: PRESENT: conjunctiva pink, EOMI, PERRLA Ear exam: PRESENT: normal external ear exam Mouth exam: PRESENT: moist, tongue midline Neck exam: PRESENT: full ROM Respiratory exam: PRESENT: clear to auscultation richard Cardiovascular exam: PRESENT: RRR, +S1, +S2 Pulses: PRESENT: normal dorsalis pedis pul, +2 pedal pulses bilateral Vascular exam: PRESENT: normal capillary refill GI/Abdominal exam: PRESENT: normal bowel sounds, soft Rectal exam: PRESENT: deferred Neurological exam: PRESENT: alert, awake, oriented to person, oriented to place, oriented to time, oriented to situation, CN II-XII grossly intact Psychiatric exam: PRESENT: appropriate affect, normal mood Skin exam: PRESENT: dry, intact, warm Results Laboratory Results: 05/13/18 04:40 05/13/18 04:40 05/12/18 05/13/18 05/13/18 17:30 04:40 04:40 WBC 7.7 RBC 3.24 L Hgb 10.1 L Hct 30.0 L MCV 93 MCH 31.3 MCHC 33.8 RDW 13.8 Plt Count 187 Sodium 142.6 140.7 Potassium 4.9 4.9 Chloride 112 H 109 H Carbon Dioxide 20 L 19 L Anion Gap 11 13 BUN 49 H 52 H Creatinine 7.77 H 7.60 H Est GFR ( Amer) 9 L 9 L Est GFR (Non-Af Amer) 7 L 7 L Glucose 97 90 Calcium 9.2 8.8 Magnesium 1.4 L Total Bilirubin 0.4 AST 23 ALT 29 Alkaline Phosphatase 128 H Total Protein 6.9 Albumin 3.9 05/11/18 05/12/18 05/12/18 22:19 04:07 04:07 Creatine Kinase 804 H CK-MB (CK-2) 2.68 Troponin I < 0.012 < 0.012 NT-Pro-B Natriuret Pep 8080 H 05/12/18 05/12/18 05/12/18 10:56 10:56 17:30 Creatine Kinase 730 H 710 H CK-MB (CK-2) 2.14 Troponin I < 0.012 NT-Pro-B Natriuret Pep 05/12/18 17:30 Creatine Kinase CK-MB (CK-2) 2.13 Troponin I < 0.012 NT-Pro-B Natriuret Pep Impressions: Chest X-Ray 05/11/18 23:04 IMPRESSION: Right basilar atelectasis. Chest CT 05/12/18 00:00 IMPRESSION: Trace bilateral pleural effusions with minimal bibasilar atelectasis Lung Scan-[facility] 05/12/18 00:00 IMPRESSION: NORMAL VENTILATION-PERFUSION LUNG SCAN. NEGATIVE FOR PULMONARY EMBOLI. Qualifiers - * PATIENT BEING DISCHARGED WITH ANY OF THE FOLLOWING DIAGNOSIS: No
[2018-05-13 15:36] VITALS: BP 113/79
[2018-05-13] MEDS ORDERED: ATORVASTATIN CALCIUM 20 MG TABLET PO SCH (22:00)
== END 2018-05-13 15:46 | disposition home or self-care (01) | DRG 189 ==
LOC: ER 22:55 → EH 05-12 00:34 → 3W 05-12 15:35
PROVIDERS: ADMIT Family Medicine; ATTEND Family Medicine
PROC: 5A09357 Assistance with Respiratory Ventilation, Less than 24 Consecutive Hours, Continuous Positive Airway Pressure (ICD-10-PCS; principal; 2018-05-12)
DX: J81.0 Acute pulmonary edema (principal); N17.9 Acute kidney failure, unspecified; I12.0 Hypertensive chronic kidney disease with stage 5 chronic kidney disease or end stage renal disease; I42.9 Cardiomyopathy, unspecified; N18.5 Chronic kidney disease, stage 5; K21.9 Gastro-esophageal reflux disease without esophagitis; M10.9 Gout, unspecified; E83.42 Hypomagnesemia; R07.9 Chest pain, unspecified; E87.5 Hyperkalemia; I35.1 Nonrheumatic aortic (valve) insufficiency; I34.0 Nonrheumatic mitral (valve) insufficiency; I07.1 Rheumatic tricuspid insufficiency; Z82.49 Family history of ischemic heart disease and other diseases of the circulatory system; N40.0 Benign prostatic hyperplasia without lower urinary tract symptoms
CPT/HCPCS: 36415; 71045; 71250; 78582; 80048; 80053; 82550; 82553; 82962; 83735; 83880; 84484; 85025; 85027; 85610; 93005; 93010; 93306; 94660; 96374; 99291; A9540; A9567; J0610; J1644; J1940; J3475; J3490; Q9969

== ENCOUNTER 2019-02-19 09:59 | Day surgery (SDC) | payer OTHER ==
[~2019-02-19 09:59] MED LIST: CEFAZOLIN SODIUM 1 GM in DEXTROSE 5%-WATER 50 ML IV PRN; DEXAMETHASONE SOD PHOSPHATE INJ 4 MG/1 ML VIAL ONE; GLYCOPYRROLATE 1 MG/5 ML VIAL ONE; LACTATED RINGERS 1000 ML IV PRN; LIDOCAINE 0.5% INJ-PF (5 MG/ML) 50 ML SDV SUBCUT PRN; LIDOCAINE 2% INJ-PF (20 MG/ML) 2 ML AMPUL ONE; NEOSTIGMINE METHYLSULFATE 10 MG/10 ML VIAL ONE; ONDANSETRON HCL INJ/PF 4 MG/2 ML SDV ONE; SUCCINYLCHOLINE CHLORIDE INJ 200 MG/10 ML VIAL ONE
[2019-02-19] MEDS ORDERED: BUPIVACAINE HCL 0.25 % INJ/PF (2.5 MG/1 ML) 30 ML VIAL ONE (10:40)
[2019-02-19] MEDS ORDERED: LIDOCAINE 0.5% INJ-PF (5 MG/ML) 50 ML SDV ONE (10:41)
[2019-02-19] MEDS ORDERED: FENTANYL CITRATE INJ/PF 250 MCG/5 ML AMPULE ONE (10:49)
[2019-02-19] MEDS ORDERED: EPHEDRINE SULFATE INJ 50 MG/1 ML AMPULE ONE (10:49)
[2019-02-19] MEDS ORDERED: MIDAZOLAM 2 MG/2 ML INJ ONE (10:49)
[2019-02-19] MEDS ORDERED: PROPOFOL INJ 200 MG/20 ML VIAL IV ONE (10:49)
[2019-02-19 11:02] LABS: HEMATOCRIT 28.7 % (37.9-51.0); HEMOGLOBIN 9.4 g/dL (13.5-17.0); MEAN CORPUSCULAR HEMOGLOBIN 30.6 pg (27.0-33.4); MEAN CORPUSCULAR VOLUME 93 fl (80-97); PLATELET COUNT 167 10^3/uL (150-450); RED BLOOD COUNT 3.08 10^6/uL (4.35-5.55); RED CELL DISTRIBUTION WIDTH 16.8 % (11.5-14.0); WHITE BLOOD COUNT 7.6 10^3/uL (4.0-10.5)
[2019-02-19 11:20] LABS: ANION GAP 14 (5-19); BLOOD UREA NITROGEN 88 mg/dL (7-20); CALCIUM 9.6 mg/dL (8.4-10.2); CARBON DIOXIDE 18 mmol/L (22-30); CHLORIDE 110 mmol/L (98-107); GLUCOSE 88 mg/dL (75-110); POTASSIUM 5.2 mmol/L (3.6-5.0)
[2019-02-19] MEDS ORDERED: BACITRACIN INJ 50,000 UNIT VIAL ONE (11:36)
[2019-02-19] MEDS ORDERED: FENTANYL CITRATE INJ/PF 100 MCG/2 ML AMPUL IV PRN ×3 (12:20)
[2019-02-19] MEDS ORDERED: OXYCODONE-ACETAMINOPHEN 5-325 MG TABLET PO PRN ×2 (12:20)
[2019-02-19] MEDS ORDERED: PROMETHAZINE HCL INJ 25 MG/1 ML VIAL IV PRN ×2 (12:20)
[2019-02-19] MEDS ORDERED: MEPERIDINE HCL/PF INJ 25 MG/1 ML DISP.SYRIN IV PRN (12:20)
[2019-02-19] MEDS ORDERED: DIPHENHYDRAMINE HCL 50 MG/ML VIAL IV PRN (12:20)
[2019-02-19] MEDS: HEPARIN SOD (PORCINE) 1,000 UNIT/ML 10 ML VIAL ONE ×2 (13:24→13:43)
--- NOTE | 2019-02-19 14:07 | Discharge Summary ---
Discharge Summary (SDC) - Discharge Final Diagnosis: #1 end-stage renal disease. 2. Hypertension. Date of Surgery: 02/19/19 Discharge Date: 02/19/19 Condition: Good Treatment or Instructions: Discharge home [after recovery per ASU criteria]. Diet , [renal],as tolerated, when fully awake advance as tolerated. Activities within moderation encouraged. Follow up in my office by appointment in about [1 week]. Call for appointment. Leave wounds [covered], [keep clean and dry, until office visit in 1 week]. Hold of on school/work [until evaluation in office]. Meds per med rec. Percocet. May shower [in 48 hrs], [try to keep operated area as dry as possible]. Prescriptions: Oxycodone HCl/Acetaminophen [Percocet 5-325 mg Tablet] 1 tab PO ASDIR PRN #15 tab PRN Reason: Referrals: ROB RILEY MD [Primary Care Provider] - Discharge Diet: Other (Comments) - Renal. Respiratory Treatments at Home: Deep Breathing/Coughing Discharge Activity: Activity As Tolerated Report the Following to Your Physician Immediately: Fever over 101 Degrees, Unusual Bleeding
[2019-02-19] MEDS ORDERED: OXYCODONE-ACETAMINOPHEN 5-325 MG TABLET ONE (15:29)
[2019-02-19] MEDS ORDERED: OXYCODONE-ACETAMINOPHEN 5-325 MG TABLET PO ONE (16:00)
[2019-02-19 16:56] VITALS: BP 152/89
--- NOTE | 2019-02-20 10:43 | Operative Report ---
Operative Report DATE OF SURGERY: 02/19/19 PREOPERATIVE DIAGNOSIS: #1 end-stage renal disease. 2. Hypertension. POSTOPERATIVE DIAGNOSIS: #1 end-stage renal disease. 2. Hypertension. OPERATION: Laparoscopic insertion of peritoneal dialysis catheter. SURGEON: TYRONE DUGAN FLOOR LAYER APPRENTICE: None. ANESTHESIA: GA TISSUE REMOVED OR ALTERED: Not applicable. COMPLICATIONS: None. ESTIMATED BLOOD LOSS: 5 mL. INTRAOPERATIVE FINDINGS: Of a challenging access to the peritoneal cavity. The patient appears to have an excess of preperitoneal fat so that the access in an open fashion was challenging. Entry was eventually obtained more medially than usual and probably to the left of the hepatic ligament. Careful laparoscopic evaluation of the abdomen showed no untoward findings. No hernia defects. In particular the right inguinal area and the umbilical area were nicely inspected. The left inguinal area was somewhat challenging to see because of the sigmoid colon which had large amounts of epiploicae. A satisfactory exit site was obtained well below the level of the belt buckle in this patient. Easy ingress of a liter of heparinized solution and easy egress of about 700 mils. PROCEDURE: After obtaining informed consent and going over the procedure with [the patient ], he was taken to the operating room, [he was] anesthetized and intubated. The abdomen was prepped and draped in the usual sterile fashion. After the universal timeout, in which it was verified that the patient received IV antibiotic, the procedure commenced. The topographical location for the peritoneal dialysis catheter was sketched by applying it to the anterior abdominal wall. The reference point was the pubic symphysis the coil of the catheter, just beneath this level. In this way the position for the cuffs and the external catheter exit were ascertained and marked. The catheter was now replaced in antibiotic containing solution. An entry into the abdomen was sketched just to the right of the midline and transversely in the epigastrium. Local anesthesia was infiltrated. A 1 cm, transverse incision was made with a [15 blade scalpel]. Dissection now proceeded to the medial aspect of the right rectus sheath. This was opened and the muscle gently reflected. Access to the peritoneal cavity proved challenging because of preperitoneal fat. The incision was enlarged medially and access gained safely at about the midline. The posterior rectus sheath and peritoneum were opened between hemostats and entry was gained to the peritoneal cavity. This allowed introduction of a 10 mm laparoscopic port. The abdomen was now insufflated with carbon dioxide up to a maximum pressure of 12 mm of mercury. The camera was inserted and a good view gained of the abdomen. Photographs were taken. Local anesthesia was now infiltrated and an incision made in respect to the curve of the catheter. A 1 cm transverse incision was made at this point and dissection proceeded down to the rectus sheath. This was opened and a Veress needle on a reducing sleeve were were now introduced through the rectus muscle and the manipulated down to about 4 cm inferior to the incision. The peritoneum was now entered and the Veress needle removed. The internal cannula was now placed under direct vision. A swan neck peritoneal dialysis catheter was now placed on a stylette. Great care was taken to keep the orientation in reference to the white line on the catheter. It was now inserted into the peritoneal cavity under direct vision, through the introducer. As the catheter entered the abdomen the stylette was slowly withdrawn allowing it to assume its normal orientation and shape within the peritoneal cavity. Both the stylet and introducer were removed so as to place the internal cuff about 3 cm from the entry point of the peritoneal cavity, and within the rectus sheath. This was verified with respect to the incision. The external curve of the catheter was allowed to form precisely at the level of the incision. Externally the catheter was affixed to a Jimenez stylette which was now used to tunnel the catheter in the subcutaneous tissues to its exit site where it was now used to exit the skin. The catheter orientation and position and, particularly the 2 cuffs of the catheter were verified. Once this was done the external portion of the catheter was affixed to a Leur lock adapter and connected to a sterile IV tubing. This allowed introduction of 1 L of heparinized saline into the peritoneal cavity via the catheter. This occurred with brisk and free flow of fluid into the peritoneal cavity. Once the entire liter had been infused, the bag was now placed beneath the level of the patient and very satisfactory outflow was observed. With this in place, the camera and the catheter were removed and abdomen desufflated. The subcutaneous tissue in each incision was closed with interrupted 3-0 PDS. The skin in each incision was closed using interrupted and continuous sutures of 4-0 Monocryl. Once about 800 mils of the Infusaid had been passively removed from the abdomen, the catheter was flushed with 10 mL of heparinized solution and capped. The bio a patch was applied at the exit site. Benzoin was applied and Steri-Strips used to reinforce each of the wounds. It was also used to help anchor the Biopatch. It was also used to anchor the main catheter so that any external pressure would not dislodge the catheter. Dry gauze and tape applied and the procedure concluded.
== END 2019-02-19 17:00 | disposition home or self-care (01) ==
LOC: OROUT 09:59
PROVIDERS: ATTEND Surgery
DX: I12.0 Hypertensive chronic kidney disease with stage 5 chronic kidney disease or end stage renal disease (principal); N18.6 End stage renal disease; Z79.899 Other long term (current) drug therapy; E87.5 Hyperkalemia; M10.9 Gout, unspecified; F17.210 Nicotine dependence, cigarettes, uncomplicated
CPT/HCPCS: 36415; 85027; 80048; 49324; J2250; J3490 ×5; J0690; J1100; J3010; J1644; J2710; J0330; J2405; J7060; J2704; J1642

== ENCOUNTER 2020-01-20 19:34 | Inpatient (IN) | payer OTHER ==
--- NOTE | 2020-01-20 20:32 | ER Document Report ---
ED General - General Chief Complaint: Shortness Of Breath Stated Complaint: SHORTNESS OF BREATH,FEVER Time Seen by Provider: 01/20/20 20:21 Notes: Patient is a 59-year-old male that comes to the emergency department for chief complaint of weakness, nausea, vague shortness of breath, and had a fever at home per family although did not have a measured one here tonight. Patient has a history of peritoneal dialysis, follows with Dr. Nam, unfortunately he forgot to perform the secondary (smaller bag) drainage at 3 PM and has not had the full exchange since last night. Patient denies cough, sore throat, chest pain, headache, abdominal pain, flank pain. states that he became faint and they had to catch/support him to keep him from falling in the waiting room but he did not pass out. Past medical history of hypertension, BPH, however no other medical history reported. Primary care provider is Dr. Richards. No obvious sick exposures, no Covid testing, at bedside. TRAVEL OUTSIDE OF THE [place] IN LAST 30 DAYS: No - Related Data Allergies/Adverse Reactions: lisinopril Allergy (Verified 01/20/20 20:40) doxycycline Adverse Reaction (Verified 01/20/20 20:40) Past Medical History - General Information source: Patient, Relative - Social History Smoking Status: Never Smoker Frequency of alcohol use: None Drug Abuse: None Lives with: Family Family History: Reviewed & Not Pertinent - Past Medical History Cardiac Medical History: Reports: Hx Hypertension Denies: Hx Coronary Artery Disease, Hx Heart Attack Pulmonary Medical History: Denies: Hx Asthma, Hx Bronchitis, Hx COPD, Hx Pneumonia, Hx Tuberculosis Neurological Medical History: Denies: Hx Cerebrovascular Accident, Hx Seizures Renal/ Medical History: Reports: Hx Benign Prostatic Hyperplasia, Hx Renal Insufficiency. Denies: Hx Peritoneal Dialysis GI Medical History: Reports: Hx Gastroesophageal Reflux Disease Musculoskeletal Medical History: Reports Hx Arthritis, Reports Hx Gout, Reports Hx Musculoskeletal Deformity - cyst left wrist Psychiatric Medical History: Denies: Hx Depression Traumatic Medical History: Reports: Hx Fractures - right hand Past Surgical History: Denies: Hx Pacemaker - Immunizations Immunizations up to date: Yes Hx Diphtheria, Pertussis, Tetanus Vaccination: Yes Review of Systems - Review of Systems Constitutional: See HPI EENT: No symptoms reported Cardiovascular: See HPI Respiratory: No symptoms reported Gastrointestinal: No symptoms reported Genitourinary: No symptoms reported Male Genitourinary: No symptoms reported Musculoskeletal: No symptoms reported Skin: No symptoms reported Hematologic/Lymphatic: No symptoms reported Neurological/Psychological: No symptoms reported Physical Exam - Vital signs Vitals: Resp 20 01/20/20 20:16 - Notes Notes: GENERAL: Patient appears slightly unwell, however he is still interactive, cooperative, conversational. HEAD: Normocephalic, atraumatic. EYES: Pupils equal, round, and reactive to light. Extraocular movements intact. ENT: Oral mucosa moist, tongue midline. Oropharynx unremarkable. Airway patent. NECK: Full range of motion. Supple. Trachea midline. No lymphadenopathy. LUNGS: Clear to auscultation bilaterally, no wheezes, rales, or rhonchi. No respiratory distress. Non-tender chest wall. HEART: Regular rate and rhythm. No murmur ABDOMEN: Soft, non-tender. Non-distended. Peritoneal dialysis catheter and equipment in place without surrounding erythema, tenderness, drainage, or guarding. Unremarkable otherwise. EXTREMITIES: Moves all 4 extremities spontaneously. No edema, normal radial and dorsalis pedis pulses bilaterally. No cyanosis. BACK: no cervical, thoracic, lumbar midline tenderness. No saddle anesthesia, normal distal neurovascular exam. Moves all extremities in full range of motion. NEUROLOGICAL: Alert and oriented x3. Normal speech. Cranial nerves II through XII grossly intact. Strength 5/5 in all extremities. PSYCH: Normal affect, normal mood. SKIN: Warm, dry, normal turgor. No rashes or lesions noted. Course - Re-evaluation Re-evalutation: Patient is somewhat ill-appearing, however he has no tachypnea, clear lungs, no nuchal rigidity, soft abdomen. He does have an oxygen requirement with hypoxia and he previously has no pulmonary history reported. CBC, chemistry, troponin, EKG nonspecific without acute findings. Chest x-ray shows significant pneumonia especially on the right. Based on this and his evaluation I am concerned patient is COVID-19 pneumonia, patient is very weak and has difficulty standing, almost passed out in the lobby, he also has an oxygen requirement, patient will require hospital admission. Patient will be started on Decadron, antibiotics, will discuss with hospitalist for admission. I discussed in detail with patient and significant other, they state appreciation and agreement. 01/20/20 23:[address] Nam, patient's coding file clerk. He recommends 2 to 2.5 L of the green bag to be instilled, left for 6 hours, and exchanged. This is to be performed every 6 hours and to be done 4 times daily. I spoke to nursing production control supervisor venous and she is placing the orders and directions for this. But Dr. Dockery can be consulted for additional care starting tomorrow. I called and spoke with Dr. Lentz, on-call for Dr. Maurice cameron, patient accepted to [facility] full admission. - Vital Signs Vital signs: Temp Pulse Resp BP Pulse Ox 98.3 F 25 H 170/112 H 95 01/21/20 00:30 01/21/20 00:30 01/21/20 00:30 01/21/20 00:30 - Laboratory Result Diagrams: 01/20/20 20:20 01/20/20 20:20 Laboratory results interpreted by me: 01/20/20 01/20/20 01/20/20 20:20 20:20 21:16 RBC 3.47 L Hgb 11.0 L Hct 32.5 L RDW 16.1 H BUN 55 H Creatinine 11.51 H Est GFR ( Amer) 6 L Est GFR (MDRD) Non-Af 5 L Albumin 3.2 L Urine Protein 100 H Urine Blood SMALL H - EKG Interpretation by Me Additional EKG results interpreted by me: EKG shows sinus rhythm at a rate of 98, QTc 470, normal axis, no T wave inversions or ST segment changes in consecutive leads although there are borderline T wave inversions in leads V6 and flattened laterally. Discharge - Discharge Clinical Impression: Hypoxia, Weakness, Person under investigation for COVID-19 Pneumonia Qualifiers: Pneumonia type: due to unspecified organism Laterality: bilateral Lung location: unspecified part of lung Qualified Code(s): J18.9 - Pneumonia, unspecified organism Condition: Stable Disposition: ADMITTED INPATIENT Admitting Provider: Tor - for Dr. Richards Unit Admitted: [facility]
[2020-01-20] MEDS ORDERED: ONDANSETRON HCL INJ/PF 4 MG/2 ML SDV IV ONE (20:34)
[2020-01-20 20:42] LABS: VENOUS BLOOD BASE EXCESS 2.8 mmol/L; VENOUS BLOOD HCO3 28.3 mmol/L (20-32); VENOUS BLOOD PCO2 47.2 mmHg (35-63); VENOUS BLOOD PH 7.4 (7.30-7.42)
[2020-01-20 20:44] LABS: ABSOLUTE BASOPHILS # (AUTO) 0.1 10^3/uL (0.0-0.2); ABSOLUTE EOSINOPHILS # (AUTO) 0.6 10^3/uL (0.0-0.6); ABSOLUTE LYMPHOCYTES (AUTO) 1.7 10^3/uL (0.5-4.7); ABSOLUTE MONOCYTES (AUTO) 0.7 10^3/uL (0.1-1.4); BASOPHILS % (AUTO) 1.2 % (0-2); EOSINOPHILS % (AUTO) 5.6 % (0-6); HEMATOCRIT 32.5 % (37.9-51.0); LYMPHOCYTES % (AUTO) 16.8 % (13-45); MEAN CORPUSCULAR HEMOGLOBIN 31.8 pg (27.0-33.4); MEAN CORPUSCULAR HGB CONC 33.9 g/dL (32.0-36.0); MEAN CORPUSCULAR VOLUME 94 fl (80-97); MONOCYTES % (AUTO) 6.6 % (3-13); PLATELET COUNT 201 10^3/uL (150-450); RED BLOOD COUNT 3.47 10^6/uL (4.35-5.55); RED CELL DISTRIBUTION WIDTH 16.1 % (11.5-14.0); SEGMENTED NEUTROPHILS % (AUTO) 69.8 % (42-78); TOTAL CELLS COUNTED % (AUTO) 100 %
--- NOTE | 2020-01-20 21:11 | RADIOLOGY REPORT (SQ) ---
EXAM DESCRIPTION: X-ray, single view of the chest CLINICAL HISTORY: 59 years Male, fever, hypoxia COMPARISON: Single view of the chest 05/11/2018 FINDINGS: Lungs: There is diffuse abnormality of the lung interstitium with septal lines, airways thickening and upper lobe vessel distention recruitment. Findings are suggestive of pulmonary edema. Diffuse pneumonia might also have this appearance. No pneumothorax. No pleural effusion. Mediastinum: Cardiac and mediastinal silhouette are within normal limits. Bones: Osseous structures are stable IMPRESSION: Cardiomegaly. Diffuse abnormality of the lung interstitium suggesting pulmonary edema. Diffuse pneumonia might have this appearance. Overall aeration has worsened when compared to the previous exam.
[2020-01-20 21:13] LABS: ALBUMIN 3.2 g/dL (3.5-5.0); ALKALINE PHOSPHATASE 104 U/L (38-126); ANION GAP 11 (5-19); ASPARTATE AMINO TRANSFERASE 19 U/L (17-59); BILIRUBIN,DIRECT 0.2 mg/dL (0.0-0.4); BILIRUBIN,TOTAL 0.4 mg/dL (0.2-1.3); BLOOD UREA NITROGEN 55 mg/dL (7-20); CALCIUM 8.6 mg/dL (8.4-10.2); CARBON DIOXIDE 26 mmol/L (22-30); CHLORIDE 101 mmol/L (98-107); GLUCOSE 98 mg/dL (75-110); POTASSIUM 3.8 mmol/L (3.6-5.0); TOTAL PROTEIN 6.7 g/dL (6.3-8.2)
[2020-01-20 21:38] LABS: APPEARANCE,URINE CLEAR; BILIRUBIN,URINE NEGATIVE (NEGATIVE); COLOR,URINE STRAW; GLUCOSE, URINE NEGATIVE (NEGATIVE); KETONES,URINE NEGATIVE (NEGATIVE); PROTEIN,URINE 100 mg/dL (NEGATIVE); URINE SPECIFIC GRAVITY 1.006; UROBILINOGEN,URINE NEGATIVE mg/dL (<2.0)
[2020-01-20] MEDS ORDERED: DEXAMETHASONE SOD PHOS INJ 10 MG/1 ML VIAL IV ONE (21:49)
[2020-01-20] MEDS ORDERED: AZITHROMYCIN INJ 500 MG VIAL IV ONE (21:50)
[2020-01-20] MEDS ORDERED: CEFTRIAXONE 1 GM/D5W RTU 1 GM/50 ML RTUPB IV ONE (21:50)
[2020-01-20] MEDS ORDERED: DEXAMETHASONE SOD PHOSPHATE INJ 4 MG/1 ML VIAL ONE (22:22)
[2020-01-21] MEDS ORDERED: AZITHROMYCIN INJ 500 MG VIAL IV PRN (00:41)
[2020-01-21] MEDS ORDERED: AZITHROMYCIN 500 MG in DEXTROSE 5%-WATER 250 ML IV ONE (01:00)
--- NOTE | 2020-01-21 06:25 | EKG REPORT ---
SEVERITY:- BORDERLINE ECG - SINUS RHYTHM BORDERLINE T ABNORMALITIES, LATERAL LEADS : Confirmed by: Buck Turpin MD 21-Jan-2020 06:24:35
[2020-01-21 08:33] LABS: ABSOLUTE BASOPHILS # (AUTO) 0.1 10^3/uL (0.0-0.2); ABSOLUTE LYMPHOCYTES (AUTO) 0.7 10^3/uL (0.5-4.7); ABSOLUTE MONOCYTES (AUTO) 0.1 10^3/uL (0.1-1.4); ABSOLUTE NEUT (AUTO) 7.1 10^3/uL (1.7-8.2); HEMATOCRIT 33.3 % (37.9-51.0); HEMOGLOBIN 11.1 g/dL (13.5-17.0); LYMPHOCYTES % (AUTO) 8.3 % (13-45); MEAN CORPUSCULAR HEMOGLOBIN 31.2 pg (27.0-33.4); MEAN CORPUSCULAR HGB CONC 33.4 g/dL (32.0-36.0); MEAN CORPUSCULAR VOLUME 93 fl (80-97); MONOCYTES % (AUTO) 1.4 % (3-13); PLATELET COUNT 203 10^3/uL (150-450); RED BLOOD COUNT 3.58 10^6/uL (4.35-5.55); RED CELL DISTRIBUTION WIDTH 16.1 % (11.5-14.0); SEGMENTED NEUTROPHILS % (AUTO) 89.3 % (42-78); TOTAL CELLS COUNTED % (AUTO) 100 %
[2020-01-21 08:45] LABS: ANION GAP 14 (5-19); BLOOD UREA NITROGEN 56 mg/dL (7-20); CARBON DIOXIDE 22 mmol/L (22-30); CHLORIDE 102 mmol/L (98-107); GLUCOSE 117 mg/dL (75-110); POTASSIUM 4.7 mmol/L (3.6-5.0)
--- NOTE | 2020-01-21 08:56 | RADIOLOGY REPORT (SQ) ---
EXAM DESCRIPTION: CT CHEST WITHOUT IMAGES COMPLETED DATE/TIME: 01/21/2020 8:44 am REASON FOR STUDY: sob COMPARISON: 05/12/2018 TECHNIQUE: CT scan performed of the chest without intravenous contrast. Images reviewed with lung, soft tissue and bone windows. Reconstructed coronal and sagittal MPR images reviewed. All images st ored on PACS. All CT scanners at this facility use dose modulation, iterative reconstruction, and/or weight based d osing when appropriate to reduce radiation dose to as low as reasonably achievable (ALARA). [facility]: Dose Right [facility]: CareDose [facility]: Dose Right [facility]: Teradose 4D [facility]: Placeling RADIATION DOSE: CT Rad equipment meets quality standard of care and radiation dose reduction techniq ues were employed. CTDIvol: 11.0 - 13.2 mGy. DLP: 728 mGy-cm. mGy. LIMITATIONS: No technical limitations. FINDINGS: LUNGS AND PLEURA: Small bilateral pleural effusions, right greater than left. There is mi ld associated bibasilar consolidation and ground-glass attenuation with interlobular septal thickenin g. No pneumothorax. No discrete pulmonary masses. HILAR AND MEDIASTINAL STRUCTURES: Grossly stable shotty mediastinal nodes. Largest pretracheal node measures 12 mm in short axis (series 2, image 40). HEART AND VASCULAR STRUCTURES: Cardiomegaly. Trace pericardial effusion. Scattered coronary atheros clerosis. UPPER ABDOMEN: Small volume perihepatic and perisplenic ascites. THYROID AND OTHER SOFT TISSUES: No masses. No adenopathy. BONES: No acute bony abnormality. No suspicious lytic or blastic osseous lesions. HARDWARE: None in the chest. OTHER: No other significant findings. IMPRESSION: 1. Findings suggestive of CHF with enlarged heart, small bilateral effusions and mild g round-glass opacities and interlobular septal thickening, likely edema. 2. Coronary atherosclerosis. TECHNICAL DOCUMENTATION: JOB ID: [id number] Quality ID # [id number]: Final reports with documentation of one or more dose reduction techniques (e.g., Au tomated exposure control, adjustment of the mA and/or kV according to patient size, use of iterative reconstruction technique) 2010 [employer]- All Rights Reserved Reading location - IP[facility]workstation name: [email or web address]
[2020-01-21] MEDS: ISOSORBIDE MONONITRATE 30 MG TAB.ER.24H PO SCH (10:12)
[2020-01-21] MEDS: AMLODIPINE BESYLATE 2.5 MG TABLET PO SCH (10:12)
[2020-01-21] MEDS: CEFTRIAXONE 1 GM/D5W RTU 1 GM/50 ML RTUPB IV SCH (10:14)
[2020-01-21] MEDS ORDERED: HYDROXYZINE HCL 10 MG TABLET PO PRN (11:20)
--- NOTE | 2020-01-21 11:20 | PDOC H&P ---
History of Present Illness Admission Date/PCP: 01/20/20 23:29 ROB RILEY MD Patient complains of: Shortness of the breath weakness nuusea History of Present Illness: MARGE ORTEGA is a 59 year old male Is a 59-year-old male with history of end-stage renal disease last seen in my office in July [address] Nam for the PD dialysis brought to the emergency department with a complaining of generalized weakness nausea not feeling well questionable fever and patient's missed PD in the [facility] the emergency department patient's was Questionable diagnosed with the Covid pneumonia due to the weakness and a chest x-ray but more likely to be a CHF with end-stage renal disease also I saw the patient on the floor alert awake oriented denied any chest pain denied any contact with any Covid does not require any oxygen in the floor Patient CT of the chest suggest the CHF with pulmonary edema and some groundglass opacity Patient is already received antibiotic and IV steroid and a Covid test is already performed Discussed with the nephrology Dr. Pérez regarding the further adjustment of the PD dialysis due to the CHF Get the echocardiogram Past Medical History Cardiac Medical History: Reports: Hypertension Denies: Coronary Artery Disease, Myocardial Infarction Pulmonary Medical History: Denies: Asthma, Bronchitis, Chronic Obstructive Pulmonary Disease (COPD), Pneumonia, Tuberculosis Neurological Medical History: Denies: Seizures Renal/ Medical History: Reports: End Stage Renal Disease GI Medical History: Reports: Gastroesophageal Reflux Disease Musculoskeltal Medical History: Reports: Arthritis, Gout Psychiatric Medical History: Denies: Depression Hematology: Reports: Anemia Past Surgical History Past Surgical History: Denies: Pacemaker Social History Information Source: Patient Lives with: Family Smoking Status: Never Smoker Electronic Cigarette use?: No Frequency of Alcohol Use: None Hx Recreational Drug Use: No Drugs: None Hx Prescription Drug Abuse: No Family History Family History: Reviewed & Not Pertinent Parental Family History Reviewed: Yes Children Family History Reviewed: Yes Sibling(s) Family History Reviewed.: Yes Medication/Allergy Home Medications: Tamsulosin HCl [Flomax 0.4 mg Cap.sr] 0.4 mg PO DAILY 05/12/18 Isosorbide Mononitrate [Imdur 30 mg Tablet.er] 30 mg PO DAILY #30 tab.er.24h 05/13/18 Metoprolol Succinate 200 mg PO DAILY #30 tab.er.24h 05/13/18 Ferric Citrate [Auryxia] 210 mg PO MEALS 01/21/20 Hydroxyzine HCl [Atarax 10 mg Tablet] 10 mg PO HSP PRN 01/21/20 Magnesium Oxide [Mag-Ox 400 mg Tablet] 400 mg PO BID 01/21/20 Allergies/Adverse Reactions: lisinopril Allergy (Verified 01/20/20 20:40) doxycycline Adverse Reaction (Verified 01/20/20 20:40) Review of Systems Constitutional: PRESENT: weakness. ABSENT: chills, fever(s), headache(s), weight gain, weight loss Eyes: ABSENT: visual disturbances Ears: ABSENT: hearing changes Cardiovascular: PRESENT: dyspnea on exertion. ABSENT: chest pain, edema, orthropnea, palpitations Respiratory: PRESENT: dyspnea. ABSENT: cough, hemoptysis Gastrointestinal: ABSENT: abdominal pain, constipation, diarrhea, hematemesis, hematochezia, nausea, vomiting Genitourinary: ABSENT: dysuria, hematuria Musculoskeletal: ABSENT: joint swelling Integumentary: ABSENT: rash, wounds Neurological: ABSENT: abnormal gait, abnormal speech, confusion, dizziness, focal weakness, syncope Psychiatric: ABSENT: anxiety, depression, homidical ideation, suicidal ideation Endocrine: ABSENT: cold intolerance, heat intolerance, menstrual abnormalities, polydipsia, polyuria Hematologic/Lymphatic: ABSENT: easy bleeding, easy bruising, lymphadenopathy Physical Exam Vital Signs: Temp Pulse Resp BP Pulse Ox 98.6 F 92 18 151/98 H 96 01/21/20 08:45 01/21/20 10:45 01/21/20 08:45 01/21/20 10:45 01/21/20 08:45 Intake & Output 01/20/20 01/21/20 01/22/20 06:59 06:59 06:59 Intake Total 2200 2000 Output Total 2000 1200 Balance 200 800 Weight 166.6 kg 109.3 kg General appearance: PRESENT: no acute distress Eye exam: PRESENT: PERRLA Respiratory exam: PRESENT: decreased breath sounds Cardiovascular exam: PRESENT: +S1, +S2 GI/Abdominal exam: PRESENT: normal bowel sounds, soft Neurological exam: PRESENT: alert, awake, oriented to person, oriented to place, oriented to time, oriented to situation Skin exam: PRESENT: dry Results Laboratory Results: 01/21/20 07:46 01/21/20 07:46 11/04/0901/20/20 01/20/20 20:20 20:20 20:20 WBC 10.0 RBC 3.47 L Hgb 11.0 L Hct 32.5 L MCV 94 MCH 31.8 MCHC 33.9 RDW 16.1 H Plt Count 201 Seg Neutrophils % 69.8 VBG pH 7.40 VBG pCO2 47.2 VBG HCO3 28.3 VBG Base Excess 2.8 Sodium 138.4 Potassium 3.8 Chloride 101 Carbon Dioxide 26 Anion Gap 11 BUN 55 H Creatinine 11.51 H Est GFR ( Amer) 6 L Glucose 98 Lactic Acid Calcium 8.6 Total Bilirubin 0.4 AST 19 Alkaline Phosphatase 104 Total Protein 6.7 Albumin 3.2 L Urine Color Urine Appearance Urine pH Ur Specific [place] Urine Protein Urine Glucose (UA) Urine Ketones Urine Blood Urine RBC (Auto) 01/20/20 01/20/20 01/21/20 20:20 21:16 00:36 WBC RBC Hgb Hct MCV MCH MCHC RDW Plt Count Seg Neutrophils % VBG pH VBG pCO2 VBG HCO3 VBG Base Excess Sodium Potassium Chloride Carbon Dioxide Anion Gap BUN Creatinine Est GFR ( Amer) Glucose Lactic Acid 0.9 0.8 Calcium Total Bilirubin AST Alkaline Phosphatase Total Protein Albumin Urine Color STRAW Urine Appearance CLEAR Urine pH 8.0 Ur Specific [place] 1.006 Urine Protein 100 H Urine Glucose (UA) NEGATIVE Urine Ketones NEGATIVE Urine Blood SMALL H Urine RBC (Auto) 0 01/21/20 01/21/20 07:46 07:46 WBC 8.0 RBC 3.58 L Hgb 11.1 L Hct 33.3 L MCV 93 MCH 31.2 MCHC 33.4 RDW 16.1 H Plt Count 203 Seg Neutrophils % 89.3 H VBG pH VBG pCO2 VBG HCO3 VBG Base Excess Sodium 138.2 Potassium 4.7 Chloride 102 Carbon Dioxide 22 Anion Gap 14 BUN 56 H Creatinine 11.77 H Est GFR ( Amer) 5 L Glucose 117 H Lactic Acid Calcium 9.0 Total Bilirubin AST Alkaline Phosphatase Total Protein Albumin Urine Color Urine Appearance Urine pH Ur Specific [place] Urine Protein Urine Glucose (UA) Urine Ketones Urine Blood Urine RBC (Auto) 01/20/20 20:20 Troponin I < 0.012 Impressions: Chest X-Ray 01/20/20 20:33 IMPRESSION: Cardiomegaly. Diffuse abnormality of the lung interstitium suggesting pulmonary edema. Diffuse pneumonia might have this appearance. Overall aeration has worsened when compared to the previous exam. Chest CT 01/21/20 00:00 IMPRESSION: 1. Findings suggestive of CHF with enlarged heart, small bilateral effusions and mild ground-glass opacities and interlobular septal thickening, likely edema. 2. Coronary atherosclerosis. Assessment & Plan - Diagnosis (1) Hypoxia Is this a current diagnosis for this admission?: Yes Plan: Get the ABG Patient is currently in the room air Multifactorial including the CHF and also end-stage renal disease versus infections Patient is already in a Covid test is performed (2) Person under investigation for COVID-19 Is this a current diagnosis for this admission?: Yes Plan: continues the IV antibiotics and a steroid until the Covid Test back Since denied any contact with any Covid (3) Weakness Is this a current diagnosis for this admission?: Yes (4) Cardiomyopathy Qualifiers: Cardiomyopathy type: unspecified Qualified Code(s): I42.9 - Cardiomyopathy, unspecified Is this a current diagnosis for this admission?: Yes Plan: We will get the echocardiogram patient's last seen the Dr. Baez 2 years back but patient does not want to see her Dr. Baez (5) Hypertension Qualifiers: Hypertension type: essential hypertension Qualified Code(s): I10 - Essenti al (primary) hypertension Is this a current diagnosis for this admission?: Yes Plan: Currently all stable (6) Shortness of breath Is this a current diagnosis for this admission?: Yes Plan: Continues the current medications - Time Time Spent: 50 to 70 Minutes Medications reviewed and adjusted accordingly: Yes Anticipated Discharge Disposition: Home, Self Care Anticipated Discharge Timeframe: within 72 hours - Inpatient Certification Based on my medical assessment, after consideration of the patient's comorbidities, presenting symptoms, or acuity I expect that the services needed warrant INPATIENT care.: Yes I certify that my determination is in accordance with my understanding of Medicare's requirements for reasonable and necessary INPATIENT services [42 CFR 412.3e].: Yes Medical Necessity: Significant Comorbidiites Make Outpatient Treatment Too Risky, Need Close Monitoring Due to Risk of Patient Decompensation, Need for IV Antibiotics Post Hospital Care: D/C Payroll Accounting Specialist Documentation - Plan Summary Plan Summary: Admit the patient in IMCU Rule out Covid Consult nephrology and cardiology Echocardiogram
[2020-01-21] MEDS ORDERED: (PENDING PHARMACY ID) (Ferric Citrate [Auryxia] 210 MG) PO SCH (12:00)
--- NOTE | 2020-01-21 15:22 | PDOC CONSULTATION ---
Consultation Consult Date: 01/21/20 Provider Consulted: LYN FERNÁNDEZ Consult reason:: ESRD on PD, Pulmonary Edema History of Present Illness Admission Date/PCP: 01/20/20 23:29 ROB RILEY MD History of Present Illness: MARGE ORTEGA is a 59 year old male with history of ESRD on peritoneal dialysis usually during a PD and midday exchanges, hypertension, and anemia who presented to the emergency room yesterday because of acute onset of shortness of breath, weakness, and fever. He apparently passed out while in the emergency room. His initial chest x-ray showed findings suggestive of pulmonary edema versus diffuse pneumonia. There was a suspicion for Covid 19 infection so he was tested for it and still currently pending. Dr. Riley saw him this morning and ordered a CT of the chest which showed findings suggestive again of congestive heart failure, small bilateral effusion with mild groundglass opacities in in the globule septae likely also edema. Patient is currently on ceftriaxone. His blood pressure was also elevated when he came at 176/120 and is currently improved around 151/98. Patient usually use the cycler at night for peritoneal dialysis doing 3 cycles of 2.5 L each for 9 hours with a last fill of 2 L and another midday exchange. When he presented to the emergency room he was unable to do the midday exchange. He tells me that he usually uses 1.5/2.5% dianeal peritoneal dialysis fluid. When I saw him this morning he said he feels much better. He is currently having peritoneal dialysis and is on the dwell phase. His breathing is better. He denies any cough, chest pains, nausea, vomiting or diarrhea. He is usually stable and compliant with his peritoneal dialysis regimen at home. Past Medical History Cardiac Medical History: Reports: Hypertension-primary Renal/ Medical History: Reports: Benign Prostatic Hyperplasia, End Stage Renal Disease, Hyperkalemia, Proteinuria, Renal Osteodystropy GI Medical History: Reports: Gastroesophageal Reflux Disease Musculoskeltal Medical History: Reports: Arthritis, Gout Hematology Medical History: Reports Anemia of Chronic Kidney Disease Past Surgical History Past Surgical History: Reports: Dialysis Access Surgery PD Social History Information Source: Patient Lives with: Family Smoking Status: Never Smoker Electronic Cigarette use?: No Frequency of Alcohol Use: None Hx Recreational Drug Use: No Drugs: None Hx Prescription Drug Abuse: No Family History Family History: Hypertension Parental Family History Reviewed: Yes Children Family History Reviewed: Yes Sibling(s) Family History Reviewed.: Yes Medication/Allergy Home Medications: Tamsulosin HCl [Flomax 0.4 mg Cap.sr] 0.4 mg PO DAILY 05/12/18 Isosorbide Mononitrate [Imdur 30 mg Tablet.er] 30 mg PO DAILY #30 tab.er.24h 05/13/18 Metoprolol Succinate 200 mg PO DAILY #30 tab.er.24h 05/13/18 Ferric Citrate [Auryxia] 210 mg PO MEALS 01/21/20 Hydroxyzine HCl [Atarax 10 mg Tablet] 10 mg PO HSP PRN 01/21/20 Magnesium Oxide [Mag-Ox 400 mg Tablet] 400 mg PO BID 01/21/20 Allergies/Adverse Reactions: lisinopril Allergy (Verified 01/20/20 20:40) doxycycline Adverse Reaction (Verified 01/20/20 20:40) Review of Systems All systems: reviewed and no additional remarkable complaints except as stated Review of Systems: Constitutional: ABSENT: chills, fatigue, headache(s), weight gain, weight loss; admits fever Eyes: ABSENT: visual disturbances Ears: ABSENT: hearing changes Cardiovascular: ABSENT: chest pain, dyspnea on exertion, edema, orthropnea, palpitations Respiratory: ABSENT: cough, hemoptysis; reports shortness of breath Gastrointestinal: ABSENT: abdominal pain, constipation, diarrhea, hematemesis, hematochezia, nausea, vomiting Genitourinary: ABSENT: dysuria, hematuria Musculoskeletal: ABSENT: joint swelling Integumentary: ABSENT: rash, wounds Neurological: ABSENT: abnormal gait, abnormal speech, confusion, dizziness, focal weakness, numbness, syncope Psychiatric: ABSENT: anxiety, depression Endocrine: ABSENT: cold intolerance, heat intolerance, polydipsia, polyuria Hematologic/Lymphatic: ABSENT: easy bleeding, easy bruising, lymphadenopathy Physical Exam Vital Signs: Temp Pulse Resp BP Pulse Ox 98.6 F 92 18 151/98 H 96 01/21/20 08:45 01/21/20 10:45 01/21/20 08:45 01/21/20 10:45 01/21/20 08:45 Intake & Output 01/20/20 01/21/20 01/22/20 06:59 06:59 06:59 Intake Total 2200 2000 Output Total 2000 1200 Balance 200 800 Weight 166.6 kg 109.3 kg Exam: General appearance: No acute distress, cooperative, well-developed, well- nourished Head exam: PRESENT: atraumatic, normocephalic Eye exam: PRESENT: Conjunctiva Carpenter, EOMI, PERRLA. ABSENT: conjunctival injection, scleral icterus Mouth exam: PRESENT: moist, neck supple, tongue midline Neck exam: PRESENT: full ROM. ABSENT: carotid bruit, JVD, lymphadenopathy, thyromegaly Respiratory exam: PRESENT: clear to auscultation bilaterally. ABSENT: rales, rhonchi, stridor, wheezes Cardiovascular exam: PRESENT: RRR, +S1, +S2. ABSENT: systolic murmur Pulses: PRESENT: normal radial pulses, normal dorsalis pedis pulses GI/Abdominal exam: PRESENT: normal bowel sounds, soft. PD catheter exit site is good. ABSENT: guarding, mass, tenderness Rectal exam: Deferred Extremities exam: PRESENT: full ROM. ABSENT: calf tenderness, pedal edema Musculoskeletal: PRESENT: full ROM. ABSENT: deformity Neurological exam: PRESENT: alert, Awake, Oriented to person, Oriented to place, Oriented to time, reflexes normal, CN II-XII grossly intact. ABSENT: motor sensory deficit Psychiatric exam: PRESENT: appropriate affect, normal mood. ABSENT: homicidal ideation, suicidal ideation Skin exam: PRESENT: intact, dry, warm. ABSENT: rash Results Laboratory Results: 01/21/20 07:46 01/21/20 07:46 01/20/20 01/20/20 01/20/20 20:20 20:20 20:20 WBC 10.0 RBC 3.47 L Hgb 11.0 L Hct 32.5 L MCV 94 MCH 31.8 MCHC 33.9 RDW 16.1 H Plt Count 201 Seg Neutrophils % 69.8 VBG pH 7.40 VBG pCO2 47.2 VBG HCO3 28.3 VBG Base Excess 2.8 Sodium 138.4 Potassium 3.8 Chloride 101 Carbon Dioxide 26 Anion Gap 11 BUN 55 H Creatinine 11.51 H Est GFR ( Amer) 6 L Glucose 98 Lactic Acid Calcium 8.6 Total Bilirubin 0.4 AST 19 Alkaline Phosphatase 104 Total Protein 6.7 Albumin 3.2 L Urine Color Urine Appearance Urine pH Ur Specific [place] Urine Protein Urine Glucose (UA) Urine Ketones Urine Blood Urine RBC (Auto) 11/04/0901/20/20 01/21/20 20:20 21:16 00:36 WBC RBC Hgb Hct MCV MCH MCHC RDW Plt Count Seg Neutrophils % VBG pH VBG pCO2 VBG HCO3 VBG Base Excess Sodium Potassium Chloride Carbon Dioxide Anion Gap BUN Creatinine Est GFR ( Amer) Glucose Lactic Acid 0.9 0.8 Calcium Total Bilirubin AST Alkaline Phosphatase Total Protein Albumin Urine Color STRAW Urine Appearance CLEAR Urine pH 8.0 Ur Specific [place] 1.006 Urine Protein 100 H Urine Glucose (UA) NEGATIVE Urine Ketones NEGATIVE Urine Blood SMALL H Urine RBC (Auto) 0 01/21/20 01/21/20 07:46 07:46 WBC 8.0 RBC 3.58 L Hgb 11.1 L Hct 33.3 L MCV 93 MCH 31.2 MCHC 33.4 RDW 16.1 H Plt Count 203 Seg Neutrophils % 89.3 H VBG pH VBG pCO2 VBG HCO3 VBG Base Excess Sodium 138.2 Potassium 4.7 Chloride 102 Carbon Dioxide 22 Anion Gap 14 BUN 56 H Creatinine 11.77 H Est GFR ( Amer) 5 L Glucose 117 H Lactic Acid Calcium 9.0 Total Bilirubin AST Alkaline Phosphatase Total Protein Albumin Urine Color Urine Appearance Urine pH Ur Specific [place] Urine Protein Urine Glucose (UA) Urine Ketones Urine Blood Urine RBC (Auto) 01/20/20 20:20 Troponin I < 0.012 Impressions: Chest X-Ray 01/20/20 20:33 IMPRESSION: Cardiomegaly. Diffuse abnormality of the lung interstitium suggesting pulmonary edema. Diffuse pneumonia might have this appearance. Overall aeration has worsened when compared to the previous exam. Chest CT 01/21/20 00:00 IMPRESSION: 1. Findings suggestive of CHF with enlarged heart, small bilateral effusions and mild ground-glass opacities and interlobular septal thickening, likely edema. 2. Coronary atherosclerosis. Assessment & Plan - Diagnosis (1) Hypoxia Is this a current diagnosis for this admission?: Yes Plan: Likely due to pulmonary edema in a dialysis patient versus pneumonia, rule out COVID-19 infection. (2) Pulmonary edema Qualifiers: Chronicity: acute Qualified Code(s): J81.0 - Acute pulmonary edema Is this a current diagnosis for this admission?: Yes Plan: I will adjust peritoneal dialysis prescription to get more ultrafiltration. (3) End stage renal disease on dialysis Is this a current diagnosis for this admission?: Yes Plan: Usual home regimen include APD with 2.5 L fill volume and 3 exchanges at night with last fill volume of 2 L and a midday exchange of 2 L. Since we do not have a cycler machine we will switch the patient to CAPD in the hospital. Will use 2.5 L fill volume. I instructed the nurse to do a 4.25 percent solution for 1 exchange today followed by all 2.5% provided that the systolic blood pressure is above 100. If systolic blood pressure is less than 100 then we will use 1.5% dianeal solution. We will do exchanges every 6 hours. Monitor ultrafiltration and recorded. Daily PD catheter exit site with gentamicin cream. I discussed peritoneal dialysis prescription with his nurse on the floor. Will monitor and adjust accordingly. (4) Pneumonia Qualifiers: Pneumonia type: due to unspecified organism Laterality: bilateral Lung location: unspecified part of lung Qualified Code(s): J18.9 - Pneumonia, unspecified organism Is this a current diagnosis for this admission?: Yes Plan: Imaging studies with chest x-ray and CT scan appears more of pulmonary edema than pneumonia but cannot exclude this. Patient was started on ceftriaxone. (5) Person under investigation for COVID-19 Is this a current diagnosis for this admission?: Yes Plan: COVID-19 testing still pending. (6) Anemia in chronic kidney disease (CKD) Is this a current diagnosis for this admission?: Yes (7) Hypertension Qualifiers: Hypertension type: essential hypertension Qualified Code(s): I10 - Essential (primary) hypertension Is this a current diagnosis for this admission?: Yes Plan: Currently controlled. Continue current medications. - Notes Notes: Thank you very much for this consultation.
[2020-01-21] MEDS: GENTAMICIN SULFATE 0.1% CREAM 15 GM TP SCH (16:49)
[2020-01-21] MEDS: MAGNESIUM OXIDE 400 MG TABLET PO SCH (17:01)
--- NOTE | 2020-01-21 20:52 | XCELERA REPORT ---
[address] [address] Transthoracic Echocardiogram Report Name: MARGE ORTEGA Age: 59 yrs Gender: Male : 1960 Patient Status: Inpatient Patient Location: [address] [place] [address] Study Date: 01/21/2020 07:48 PM History: CHF Height: 77 in Weight: 243 lb BSA: 2.4 m2 Procedure: A complete two-dimensional transthoracic echocardiogram was performed (2D, M-mode, spectral and color flow Doppler). The study was technically difficult with many images being suboptimal in quality. Doppler interrogation of tricuspid valve is suboptimal. Reason For Study: chf Previous Evaluation: A previous study was performed on 05/12/2018 LVEF 45-50%. History: CHF. Ordering Physician: ROB RILEY Performed By: Jinny Parsons Interpretation Summary Left ventricular systolic function is low normal. The Ejection Fraction estimate is 50-55% The right ventricle is normal in size and function. There is a moderate to severe amount of mitral regurgitation There is no aortic valve stenosis There is a mild amount of aortic regurgitation TV Not well interrogated. TR not assessed well There is no pericardial effusion. MMode/2D Measurements & Calculations RVDd: 2.9 cm LVIDd: 5.5 cm FS: 28.8 % Ao root diam: 3.0 cm IVSd: 1.7 cm LVIDs: 3.9 cm EDV(Teich): 148.8 ml Ao root area: 7.3 cm2 LVPWd: 1.2 cm ESV(Teich): 67.3 ml LA dimension: 4.9 cm EF(Teich): 54.8 % Doppler Measurements & Calculations MV E max tea: MV P1/2t max tea: Ao V2 max: AI max tea: 155.5 cm/sec 182.4 cm/sec 145.0 cm/sec 406.1 cm/sec MV A max tea: MV P1/2t: 52.6 msec Ao max P.4 mmHgAI max P.4 cm/sec MVA(P1/2t): 4.2 cm2 66.0 mmHg MV E/A: 1.4 MV dec slope: AI dec slope: 484.9 cm/sec2 1016 cm/sec2 AI P1/2t: MV dec time: 245.3 msec 0.18 sec LV V1 max PG: PA V2 max: AV P1/2t-pr_phl: MV P1/2t-pr_phl: 2.9 mmHg 75.6 cm/sec 245.3 msec 52.6 msec LV V1 max: PA max P.3 mmHg 85.6 cm/sec Left Ventricle The left ventricle is borderline dilated. There is moderate to severe concentric left ventricular hypertrophy. Left ventricular systolic function is low normal. The Ejection Fraction estimate is 50-55%. Doppler measurements suggest pseudonormalized left ventricular relaxation, which is associated with grade II/IV or mild to moderate diastolic dysfunction. No regional wall motion abnormalities noted. Right Ventricle The right ventricle is normal in size and function. Atria The right atrium is normal. The left atrium is moderately dilated. The interatrial septum is intact with no evidence for an atrial septal defect. There is no Doppler evidence for an interatrial shunt. The interatrial septum bows toward right atrium consistent with elevated left atrial pressure. Mitral Valve Calcified mitral apparatus. There is mild mitral leaflet calcification. There is no mitral valve stenosis. There is a moderate to severe amount of mitral regurgitation. Aortic Valve The aortic valve is sclerotic and shows some degree of functional abnormality. The aortic valve opens well. The aortic valve is trileaflet. There is no aortic valve stenosis. There is a mild amount of aortic regurgitation. Tricuspid Valve The tricuspid valve is not well visualized secondary to technical limitations. TV Not well interrogated. TR not assessed well. Pulmonic Valve The pulmonic valve is normal in structure and function. There is no pulmonic valvular stenosis. There is a trace amount of pulmonic regurgitation. Great Vessels The aortic root is normal size. Effusions There is no pericardial effusion. : ROB RILEY Anil
[2020-01-21] MEDS: DEXAMETHASONE SOD PHOSPHATE INJ 4 MG/1 ML VIAL IV SCH (21:58)
[2020-01-21] MEDS: TAMSULOSIN HCL 0.4 MG CAP.SR.24H PO SCH (21:58)
[2020-01-21] MEDS: ATORVASTATIN CALCIUM 20 MG TABLET PO SCH (21:58)
[2020-01-21] MEDS ORDERED: FAMOTIDINE 20 MG TABLET PO SCH (22:00)
[2020-01-22 06:43] LABS: ABSOLUTE LYMPHOCYTES (AUTO) 0.6 10^3/uL (0.5-4.7); ABSOLUTE MONOCYTES (AUTO) 0.2 10^3/uL (0.1-1.4); ABSOLUTE NEUT (AUTO) 7.9 10^3/uL (1.7-8.2); BASOPHILS % (AUTO) 0.3 % (0-2); EOSINOPHILS % (AUTO) 0.1 % (0-6); HEMATOCRIT 30.9 % (37.9-51.0); HEMOGLOBIN 10.5 g/dL (13.5-17.0); LYMPHOCYTES % (AUTO) 7.3 % (13-45); MEAN CORPUSCULAR HEMOGLOBIN 31.7 pg (27.0-33.4); MEAN CORPUSCULAR VOLUME 93 fl (80-97); MONOCYTES % (AUTO) 2.7 % (3-13); PLATELET COUNT 188 10^3/uL (150-450); RED BLOOD COUNT 3.31 10^6/uL (4.35-5.55); RED CELL DISTRIBUTION WIDTH 15.4 % (11.5-14.0); SEGMENTED NEUTROPHILS % (AUTO) 89.6 % (42-78); TOTAL CELLS COUNTED % (AUTO) 100 %; WHITE BLOOD COUNT 8.8 10^3/uL (4.0-10.5)
[2020-01-22 07:05] LABS: ANION GAP 14 (5-19); BLOOD UREA NITROGEN 58 mg/dL (7-20); CALCIUM 8.9 mg/dL (8.4-10.2); CARBON DIOXIDE 22 mmol/L (22-30); CHLORIDE 102 mmol/L (98-107); GLUCOSE 191 mg/dL (75-110); POTASSIUM 4.5 mmol/L (3.6-5.0)
--- NOTE | 2020-01-22 08:48 | PDOC PROGRESS REPORT ---
Subjective Progress Note for:: 01/22/20 Subjective:: Patient is feeling much better Denied any chest pain no short of breath I think most likely related to the pulmonary edema but still waiting for the Covid test to come back Reason For Visit: HYPOXIA,WEAKNESS,PERSON UNDER INVESTIGATION, Physical Exam Vital Signs: Temp Pulse Resp BP Pulse Ox 98.5 F 72 17 166/100 H 97 01/22/20 04:02 01/22/20 07:00 01/22/20 04:02 01/22/20 04:53 01/22/20 04:02 Intake & Output 01/21/20 01/22/20 01/23/20 06:59 06:59 06:59 Intake Total 2200 93885 Output Total 1999 80427 Balance 200 522 Weight 166.6 kg 105.8 kg General appearance: PRESENT: no acute distress Eye exam: PRESENT: PERRLA Musculoskeletal exam: PRESENT: ambulatory Neurological exam: PRESENT: alert, awake, oriented to person, oriented to place, oriented to time, oriented to situation Results Laboratory Results: 01/22/20 06:07 01/22/20 06:07 01/21/20 01/22/20 01/22/20 07:46 06:07 06:07 WBC 8.8 RBC 3.31 L Hgb 10.5 L Hct 30.9 L MCV 93 MCH 31.7 MCHC 34.0 RDW 15.4 H Plt Count 188 Seg Neutrophils % 89.6 H Sodium 138.2 138.0 Potassium 4.7 4.5 Chloride 102 102 Carbon Dioxide 22 22 Anion Gap 14 14 BUN 56 H 58 H Creatinine 11.77 H 11.26 H Est GFR ( Amer) 5 L 6 L Glucose 117 H 191 H Calcium 9.0 8.9 01/20/20 20:20 Troponin I < 0.012 Impressions: Chest X-Ray 01/20/20 20:33 IMPRESSION: Cardiomegaly. Diffuse abnormality of the lung interstitium suggesting pulmonary edema. Diffuse pneumonia might have this appearance. Overall aeration has worsened when compared to the previous exam. Chest CT 01/21/20 00:00 IMPRESSION: 1. Findings suggestive of CHF with enlarged heart, small bilateral effusions and mild ground-glass opacities and interlobular septal thickening, likely edema. 2. Coronary atherosclerosis. Assessment & Plan - Diagnosis (1) Hypoxia Is this a current diagnosis for this admission?: Yes Plan: Most likely due to the pulmonary edema currently all stable (2) Person under investigation for COVID-19 Is this a current diagnosis for this admission?: Yes (3) Weakness Is this a current diagnosis for this admission?: Yes (4) Cardiomyopathy Qualifiers: Cardiomyopathy type: unspecified Qualified Code(s): I42.9 - Cardiomyopathy, unspecified Is this a current diagnosis for this admission?: Yes Plan: Review the echocardiograms the EF is all stable 50 to 55%'s (5) Hypertension Qualifiers: Hypertension type: essential hypertension Qualified Code(s): I10 - Essential (primary) hypertension Is this a current diagnosis for this admission?: Yes (6) Shortness of breath Is this a current diagnosis for this admission?: Yes (7) Mitral and aortic regurgitation Is this a current diagnosis for this admission?: Yes Plan: Discussed with the cardiology and he suggest to repeat the echocardiogram in 3 weeks to reassess the mitral valve again because of the currently overload and pulmonary edema not a very good picture to assess the mitral valve (8) Pulmonary edema Qualifiers: Chronicity: acute Qualified Code(s): J81.0 - Acute pulmonary edema Is this a current diagnosis for this admission?: Yes Plan: Currently all resolved - Time Time Spent with patient: 15-24 minutes Level of Care: IMCU Medications reviewed and adjusted accordingly: Yes - Plan Summary Plan Summary: Continues the current medications
[2020-01-22] MEDS: MAGNESIUM OXIDE 400 MG TABLET PO SCH ×2 (09:27→17:19)
[2020-01-22] MEDS: DEXAMETHASONE SOD PHOSPHATE INJ 4 MG/1 ML VIAL IV SCH (09:27)
[2020-01-22] MEDS: ISOSORBIDE MONONITRATE 30 MG TAB.ER.24H PO SCH (09:28)
[2020-01-22] MEDS: TAMSULOSIN HCL 0.4 MG CAP.SR.24H PO SCH (09:28)
[2020-01-22] MEDS: AMLODIPINE BESYLATE 2.5 MG TABLET PO SCH (09:28)
[2020-01-22] MEDS: CEFTRIAXONE 1 GM/D5W RTU 1 GM/50 ML RTUPB IV SCH (09:29)
[2020-01-22] MEDS ORDERED: TAMSULOSIN HCL 0.4 MG CAP.SR.24H PO SCH (10:00)
[2020-01-22] MEDS ORDERED: FAMOTIDINE 20 MG TABLET PO SCH (10:00)
[2020-01-22] MEDS ORDERED: METOPROLOL SUCCINATE 50 MG TAB.SR.24H PO SCH (10:00)
[2020-01-22] MEDS ORDERED: METOPROLOL SUCCINATE 200 MG PO SCH (10:00)
--- NOTE | 2020-01-22 10:38 | PDOC CONSULTATION ---
Consultation Consult Date: 01/22/20 Attending physician:: ROB RILEY Provider Consulted: MATTHEW ZAZUETA Consult reason:: Congestive heart failure History of Present Illness Admission Date/PCP: 01/20/20 23:29 ROB RILEY MD Patient complains of: Shortness of breath History of Present Illness: MARGE ORTEGA is a 59 year old male With the following active problems 1. End-stage renal disease-peritoneal dialysis 2. Mitral regurgitation Patient was admitted the previous day with complaints of dyspnea, weakness and also fevers. He is being investigated for COVID-19 infection. Since admission to the hospital his fever has defervesced. His overall sense of being unwell has passed. He is breathing a lot better. In my conversation with the patient he reports having had preoperative cardiovascular assessment with transthoracic echocardiogram and stress testing as he was listed for renal transplantation at [facility]. Apparently the stress test was unremarkable but the echocardiogram showed mitral regurgitation and he is being followed for this. Patient does not smoke cigarettes or use alcohol or recreational drugs. The only surgery he had was pertaining to insertion of PD catheter. No other surgeries or implants There is family history of CKD and people on dialysis. Review of systems as mentioned above in the HPI. All other systems were asked pertinent positives noted in the HPI and all others are negative. Past Medical History Cardiac Medical History: Reports: Hypertension Denies: Coronary Artery Disease, Myocardial Infarction Pulmonary Medical History: Denies: Asthma, Bronchitis, Chronic Obstructive Pulmonary Disease (COPD), Pneumonia, Tuberculosis Neurological Medical History: Denies: Seizures Renal/ Medical History: Reports: End Stage Renal Disease GI Medical History: Reports: Gastroesophageal Reflux Disease Musculoskeltal Medical History: Reports: Arthritis, Gout Psychiatric Medical History: Denies: Depression Hematology: Reports: Anemia Past Surgical History Past Surgical History: Denies: Pacemaker Social History Lives with: Family Smoking Status: Never Smoker Electronic Cigarette use?: No Frequency of Alcohol Use: None Hx Recreational Drug Use: No Drugs: None Hx Prescription Drug Abuse: No Family History Family History: Reviewed & Not Pertinent Parental Family History Reviewed: Yes - Family of kidney illnesses including dialysis Children Family History Reviewed: NA Sibling(s) Family History Reviewed.: NA Medication/Allergy Home Medications: Tamsulosin HCl [Flomax 0.4 mg Cap.sr] 0.4 mg PO DAILY 05/12/18 Isosorbide Mononitrate [Imdur 30 mg Tablet.er] 30 mg PO DAILY #30 tab.er.24h 05/13/18 Metoprolol Succinate 200 mg PO DAILY #30 tab.er.24h 05/13/18 Ferric Citrate [Auryxia] 210 mg PO MEALS 01/21/20 Hydroxyzine HCl [Atarax 10 mg Tablet] 10 mg PO HSP PRN 01/21/20 Magnesium Oxide [Mag-Ox 400 mg Tablet] 400 mg PO BID 01/21/20 Allergies/Adverse Reactions: lisinopril Allergy (Verified 01/20/20 20:40) doxycycline Adverse Reaction (Verified 01/20/20 20:40) Review of Systems Cardiovascular: PRESENT: dyspnea on exertion Gastrointestinal: ABSENT: as per HPI, abdominal pain, bloating, coffee ground emesis, constipation, diarrhea, dysphagia, heartburn, hematemesis, hematochezia, melena, nausea, vomiting, other Musculoskeletal: ABSENT: as per HPI, back pain, deformity, joint swelling, muscle weakness, other Neurological: ABSENT: as per HPI, abnormal gait, abnormal movements, abnormal speech, confusion, convulsions, dizziness, focal weakness, frequent falls, lack of coordination, memory loss, numbness, paresthesias, restless legs, syncope, tingling, tremor(s), vertigo, weakness, other Physical Exam Vital Signs: Temp Pulse Resp BP Pulse Ox 98.5 F 72 17 166/100 H 97 01/22/20 04:02 01/22/20 07:00 01/22/20 04:02 01/22/20 04:53 01/22/20 04:02 Intake & Output 01/21/20 01/22/20 01/23/20 06:59 06:59 06:59 Intake Total 2200 08979 Output Total 1999 11638 Balance 200 522 Weight 166.6 kg 105.8 kg General appearance: PRESENT: no acute distress, cooperative, well-developed, well-nourished Head exam: PRESENT: atraumatic, normocephalic Eye exam: PRESENT: conjunctiva pink, EOMI Mouth exam: PRESENT: moist Respiratory exam: PRESENT: decreased breath sounds, rales, symmetrical Cardiovascular exam: PRESENT: RRR, +S1, +S2, systolic murmur - Mitral conducetd to axilla Pulses: PRESENT: normal radial pulses GI/Abdominal exam: PRESENT: soft Rectal exam: PRESENT: deferred Musculoskeletal exam: PRESENT: normal inspection Neurological exam: PRESENT: alert, awake, oriented to person, oriented to place, oriented to time, oriented to situation Psychiatric exam: PRESENT: appropriate affect Skin exam: PRESENT: dry, intact, normal color Results Laboratory Results: 01/22/20 06:07 01/22/20 06:07 01/22/20 01/22/20 06:07 06:07 WBC 8.8 RBC 3.31 L Hgb 10.5 L Hct 30.9 L MCV 93 MCH 31.7 MCHC 34.0 RDW 15.4 H Plt Count 188 Seg Neutrophils % 89.6 H Sodium 138.0 Potassium 4.5 Chloride 102 Carbon Dioxide 22 Anion Gap 14 BUN 58 H Creatinine 11.26 H Est GFR ( Amer) 6 L Glucose 191 H Calcium 8.9 01/20/20 20:20 Troponin I < 0.012 EKG Comments: Lead EKG 01/20/20200. Independently viewed by me. Sinus rhythm, 90 bpm, normal AV conduction, borderline T wave abnormalities Transthoracic echocardiogram 01/21/2020 Left ventricular ejection fraction is low normal at 50-55 is RV is normal in size and function There is moderate to severe mitral regurgitation There is no aortic valve stenosis There is mild aortic regurgitation Tricuspid valve was not adequately assessed on this study. There is no pericardial effusion COVID-19 not detected Serum creatinine 11.26 Cardiac troponin negative Nuclear stress test 04/13/2019 Exercise tolerance is good. There is fixed moderate-sized inferior wall defect. Inferior scar is suspected. Ejection fraction 34%. Transthoracic echocardiogram 04/13/2019. Left ventricle ejection fraction 45 to 50% Left atrium is severely dilated. Mild mitral valve thickening with moderate to severe mitral regurgitation central jet. Mild tricuspid regurgitation RV pressure is normal Impressions: Chest X-Ray 01/20/20 20:33 IMPRESSION: Cardiomegaly. Diffuse abnormality of the lung interstitium suggesting pulmonary edema. Diffuse pneumonia might have this appearance. Overall aeration has worsened when compared to the previous exam. Chest CT 01/21/20 00:00 IMPRESSION: 1. Findings suggestive of CHF with enlarged heart, small bilateral effusions and mild ground-glass opacities and interlobular septal thickening, likely edema. 2. Coronary atherosclerosis. Assessment & Plan - Diagnosis (1) Mitral regurgitation Qualifiers: Cardiac valve disease etiology: nonrheumatic Qualified Code(s): I34.0 - Nonrheumatic mitral (valve) insufficiency Is this a current diagnosis for this admission?: Yes Plan: It appears that the mitral regurgitation is an established diagnosis for this patient. His left ventricle ejection fraction is low normal here and was thought to be mildly reduced on the previous study. The severity of regurgitation is at least moderate if not severe. He has an appointment for follow-up for this valve lesion at [facility] that is already scheduled. Would recommend that he keep this. He will need right and left heart catheterization and possible valve repair perhaps. He is definitely asymptomatic. (2) CKD (chronic kidney disease) stage 4, GFR 15-29 ml/min Is this a current diagnosis for this admission?: Yes Plan: After PD and with nephrology input patient appears to be doing much better. He has had significant volume removal which is translated into symptomatic benefit. (3) CHF (congestive heart failure) Qualifiers: Heart failure type: combined systolic and diastolic Heart failure chronicity: acute Qualified Code(s): I50.41 - Acute combined systolic (congestive) and diastolic (congestive) heart failure Is this a current diagnosis for this admission?: Yes Plan: Patient likely had volume overload and congestive heart failure especially with moderate to severe mitral regurgitation as an underlying substrate. Symptoms are much improved after volume removal. Given the appearance of the valve on echocardiogram and also with moderate to severe mitral regurgitation and with ejection fraction being on the low side I suspect that he needs further work-up with plans for right and left heart catheterization especially since there are plans for renal transplant evaluation down the road.
--- NOTE | 2020-01-22 13:36 | RADIOLOGY REPORT (SQ) ---
EXAM DESCRIPTION: CHEST 2 VIEWS IMAGES COMPLETED DATE/TIME: 01/22/2020 1:18 pm REASON FOR STUDY: chf COMPARISON: 01/20/2020 EXAM PARAMETERS: NUMBER OF VIEWS: two views TECHNIQUE: Digital Frontal and Lateral radiographic views of the chest acquired. RADIATION DOSE: NA LIMITATIONS: none FINDINGS: LUNGS AND PLEURA: There is pulmonary vascular congestion but no min pulmonary edema at t his time. The overall appearance of the chest is improved. MEDIASTINUM AND HILAR STRUCTURES: No masses or contour abnormalities. HEART AND VASCULAR STRUCTURES: Heart normal size. No evidence for failure. BONES: No acute findings. HARDWARE: None in the chest. OTHER: No other significant finding. IMPRESSION: Pulmonary vascular congestion without pulmonary edema. Overall improvement in the appea trae of the chest. TECHNICAL DOCUMENTATION: JOB ID: [id number] 2010 [employer]- All Rights Reserved Reading location - IP/workstation name: [email or web address]
[2020-01-22] MEDS: GENTAMICIN SULFATE 0.1% CREAM 15 GM TP SCH (13:48)
[2020-01-22] MEDS ORDERED: Ferric Citrate [Auryxia] 210 MG Tablet PO SCH (17:00)
[2020-01-22] MEDS: ATORVASTATIN CALCIUM 20 MG TABLET PO SCH (21:54)
[2020-01-23 07:21] LABS: ANION GAP 15 (5-19); BLOOD UREA NITROGEN 61 mg/dL (7-20); CALCIUM 8.8 mg/dL (8.4-10.2); CARBON DIOXIDE 22 mmol/L (22-30); CHLORIDE 101 mmol/L (98-107); GLUCOSE 158 mg/dL (75-110); POTASSIUM 3.7 mmol/L (3.6-5.0)
--- NOTE | 2020-01-23 08:53 | PDOC DISCHARGE SUMMARY ---
Impression - Admit/DC Date/PCP Admission Date/Primary Care Provider: 01/20/20 23:29 ROB RILEY MD Discharge Date: 01/23/20 - Discharge Diagnosis (1) Hypoxia Is this a current diagnosis for this admission?: Yes (2) Person under investigation for COVID-19 Is this a current diagnosis for this admission?: Yes (3) Weakness Is this a current diagnosis for this admission?: Yes (4) Cardiomyopathy Is this a current diagnosis for this admission?: Yes (5) Hypertension Is this a current diagnosis for this admission?: Yes (6) Shortness of breath Is this a current diagnosis for this admission?: Yes (7) Mitral and aortic regurgitation Is this a current diagnosis for this admission?: Yes (8) Pulmonary edema Is this a current diagnosis for this admission?: Yes - Additional Information Discharge Diet: Cardiac, Other (Comments) Discharge Activity: Activity As Tolerated Referrals: ROB RILEY MD [Primary Care Provider] - Follow up as needed (f/u with nephrology f/u in offce 1 wk ) Home Medications: Tamsulosin HCl [Flomax 0.4 mg Cap.sr] 0.4 mg PO DAILY 05/12/18 Isosorbide Mononitrate [Imdur 30 mg Tablet.er] 30 mg PO DAILY #30 tab.er.24h 05/13/18 Metoprolol Succinate 200 mg PO DAILY #30 tab.er.24h 05/13/18 Ferric Citrate [Auryxia] 210 mg PO MEALS 01/21/20 Hydroxyzine HCl [Atarax 10 mg Tablet] 10 mg PO HSP PRN 01/21/20 Magnesium Oxide [Mag-Ox 400 mg Tablet] 400 mg PO BID 01/21/20 History of Present Illiness History of Present Illness: MARGE ORTEGA is a 59 year old male Is a 59-year-old male with history of end-stage renal disease last seen in my office in July [address] Nam for the PD dialysis brought to the emergency department with a complaining of generalized weakness nausea not feeling well questionable fever and patient's missed PD in the [facility] the emergency department patient's was Questionable diagnosed with the Covid pneumonia due to the weakness and a chest x-ray but more likely to be a CHF with end-stage renal disease also I saw the patient on the floor alert awake oriented denied any chest pain denied any contact with any Covid does not require any oxygen in the floor Patient CT of the chest suggest the CHF with pulmonary edema and some groundglass opacity Patient is already received antibiotic and IV steroid and a Covid test is already performed Discussed with the nephrology Dr. Pérez regarding the further adjustment of the PD dialysis due to the CHF Get the echocardiogram Hospital Course Hospital Course: This is a 59-year-old male's with the end-stage renal disease on the PD dialysis came with increasing the shortness of the breath and patient is diagnosed with acute flash pulmonary edema because patient missed the PD patient at this point initially put in a Covid floor due to the ongoing pandemic Patient's responds very well with the dialysis and acute flash pulmonary edema is resolved patient's back to the completely normal patient have echocardiogram was done which suggest the mitral regurgitations According to the personal financial advisor patient already seen in the [facility] and they are aware about that and patients follow with them no need for do any intervention at this point Since seen by the nephrology adjust the PD dialysis patient is currently doing well walking the hallway without any problem chest x-ray is all clear getting better patients at this point desire to go home discharged home with a stable conditions Follow outpatients cardiology and nephrology Sign of pneumonia most likely from pulmonary edema and CHF patient echocardiogram otherwise stable except mitral regurgitations patient's no need for any antibiotic at this stage Physical Exam Vital Signs: Temp Pulse Resp BP Pulse Ox 97.5 F 76 16 157/105 H 100 01/23/20 03:29 01/23/20 05:22 01/23/20 03:29 01/23/20 05:22 01/23/20 03:29 Intake & Output 01/22/20 01/23/20 01/24/20 06:59 06:59 06:59 Intake Total 50948 79509 Output Total 56886 88614 Balance 522 -530 Weight 105.8 kg 102 kg General appearance: PRESENT: no acute distress, well-developed, well-nourished Head exam: PRESENT: atraumatic, normocephalic Eye exam: PRESENT: conjunctiva pink, EOMI, PERRLA. ABSENT: scleral icterus Ear exam: PRESENT: normal external ear exam Mouth exam: PRESENT: moist, tongue midline Neck exam: ABSENT: carotid bruit, JVD, lymphadenopathy, thyromegaly Respiratory exam: PRESENT: clear to auscultation richard. ABSENT: rales, rhonchi, wheezes Cardiovascular exam: PRESENT: RRR. ABSENT: diastolic murmur, rubs, systolic murmur Pulses: PRESENT: normal dorsalis pedis pul Vascular exam: PRESENT: normal capillary refill GI/Abdominal exam: PRESENT: normal bowel sounds, soft. ABSENT: distended, guarding, mass, organolmegaly, rebound, tenderness Rectal exam: PRESENT: deferred Extremities exam: PRESENT: full ROM. ABSENT: calf tenderness, clubbing, pedal edema Neurological exam: PRESENT: alert, awake, oriented to person, oriented to place, oriented to time, oriented to situation, CN II-XII grossly intact. ABSENT: motor sensory deficit Psychiatric exam: PRESENT: appropriate affect, normal mood. ABSENT: homicidal ideation, suicidal ideation Skin exam: PRESENT: dry, intact, warm. ABSENT: cyanosis, rash Results Laboratory Results: WBC 8.8 10^3/uL (4.0-10.5) 01/22/20 06:07 RBC 3.31 10^6/uL (4.35-5.55) L 01/22/20 06:07 Hgb 10.5 g/dL (13.5-17.0) L 01/22/20 06:07 Hct 30.9 % (37.9-51.0) L 01/22/20 06:07 MCV 93 fl (80-97) 01/22/20 06:07 MCH 31.7 pg (27.0-33.4) 01/22/20 06:07 MCHC 34.0 g/dL (32.0-36.0) 01/22/20 06:07 RDW 15.4 % (11.5-14.0) H 01/22/20 06:07 Plt Count 188 10^3/uL (150-450) 01/22/20 06:07 Lymph % (Auto) 7.3 % (13-45) L 01/22/20 06:07 [place] % (Auto) 2.7 % (3-13) L 01/22/20 06:07 Eos % (Auto) 0.1 % (0-6) 01/22/20 06:07 Baso % (Auto) 0.3 % (0-2) 01/22/20 06:07 Absolute Neuts (auto) 7.9 10^3/uL (1.7-8.2) 01/22/20 06:07 Absolute Lymphs (auto) 0.6 10^3/uL (0.5-4.7) 01/22/20 06:07 Absolute Monos (auto) 0.2 10^3/uL (0.1-1.4) 01/22/20 06:07 Absolute Eos (auto) 0.0 10^3/uL (0.0-0.6) 01/22/20 06:07 Absolute Basos (auto) 0.0 10^3/uL (0.0-0.2) 01/22/20 06:07 Seg Neutrophils % 89.6 % (42-78) H 01/22/20 06:07 VBG pH 7.40 (7.30-7.42) 01/20/20 20:20 VBG pCO2 47.2 mmHg (35-63) 01/20/20 20:20 VBG HCO3 28.3 mmol/L (20-32) 01/20/20 20:20 VBG Base Excess 2.8 mmol/L 01/20/20 20:20 Sodium 137.7 mmol/L (137-145) 01/23/20 06:39 Potassium 3.7 mmol/L (3.6-5.0) 01/23/20 06:39 Chloride 101 mmol/L (98-107) 01/23/20 06:39 Carbon Dioxide 22 mmol/L (22-30) 01/23/20 06:39 Anion Gap 15 (5-19) 01/23/20 06:39 BUN 61 mg/dL (7-20) H 01/23/20 06:39 Creatinine 10.45 mg/dL (0.52-1.25) H 01/23/20 06:39 Est GFR ( Amer) 6 (>60) L 01/23/20 06:39 Est GFR (MDRD) Non-Af 5 (>60) L 01/23/20 06:39 Glucose 158 mg/dL (75-110) H 01/23/20 06:39 Lactic Acid 0.8 mmol/L (0.7-2.1) 01/21/20 00:36 Calcium 8.8 mg/dL (8.4-10.2) 01/23/20 06:39 Total Bilirubin 0.4 mg/dL (0.2-1.3) 01/20/20 20:20 Direct Bilirubin 0.2 mg/dL (0.0-0.4) 01/20/20 20:20 Neonat Total Bilirubin Not Reportable 01/20/20 20:20 Neonat Direct Bilirubin Not Reportable 01/20/20 20:20 Neonat Indirect Bili Not Reportable 01/20/20 20:20 AST 19 U/L (17-59) 01/20/20 20:20 ALT 11 U/L (<50) 01/20/20 20:20 Alkaline Phosphatase 104 U/L (38-126) 01/20/20 20:20 Troponin I < 0.012 ng/mL 01/20/20 20:20 Total Protein 6.7 g/dL (6.3-8.2) 01/20/20 20:20 Albumin 3.2 g/dL (3.5-5.0) L 01/20/20 20:20 Urine Color STRAW 01/20/20 21:16 Urine Appearance CLEAR 01/20/20 21:16 Urine pH 8.0 (5.0-9.0) 01/20/20 21:16 Ur Specific [place] 1.006 01/20/20 21:16 Urine Protein 100 mg/dL (NEGATIVE) H 01/20/20 21:16 Urine Glucose (UA) NEGATIVE mg/dL (NEGATIVE) 01/20/20 21:16 Urine Ketones NEGATIVE mg/dL (NEGATIVE) 01/20/20 21:16 Urine Blood SMALL (NEGATIVE) H 01/20/20 21:16 Urine Nitrite (Reflex) NEGATIVE (NEGATIVE) 01/20/20 21:16 Urine Bilirubin NEGATIVE (NEGATIVE) 01/20/20 21:16 Urine Urobilinogen NEGATIVE mg/dL (<2.0) 01/20/20 21:16 Leukocyte Esterase Rfl NEGATIVE (NEGATIVE) 01/20/20 21:16 Urine RBC (Auto) 0 /HPF 01/20/20 21:16 Urine WBC (Reflex) < 1 /HPF 01/20/20 21:16 Urine Ascorbic Acid NEGATIVE (NEGATIVE) 01/20/20 21:16 COVID-19 Source See comment 01/21/20 00:53 COVID-19 (VIRAL) Not Detected (Not Detect) 01/21/20 00:53 11/01/20 20:20 Troponin I < 0.012 Impressions: Chest X-Ray 01/20/20 20:33 IMPRESSION: Cardiomegaly. Diffuse abnormality of the lung interstitium suggesting pulmonary edema. Diffuse pneumonia might have this appearance. Overall aeration has worsened when compared to the previous exam. Chest CT 01/21/20 00:00 IMPRESSION: 1. Findings suggestive of CHF with enlarged heart, small bilateral effusions and mild ground-glass opacities and interlobular septal thickening, likely edema. 2. Coronary atherosclerosis. Chest X-Ray 01/22/20 00:00 IMPRESSION: Pulmonary vascular congestion without pulmonary edema. Overall improvement in the appearance of the chest. Plan Time Spent: Greater than 30 Minutes - Follow-up with cardiology and nephrology follow in office 1 week Stroke Is this a Stroke Patient?: No Acute Heart Failure Is this a Heart Failure Patient?: No
[2020-01-23 09:58] VITALS: BP 152/88
== END 2020-01-23 10:51 | disposition home or self-care (01) | DRG 189 ==
LOC: ER 19:34 → EH 23:29 → 3N 01-21 01:12 → 3W 01-22 20:44
PROVIDERS: ADMIT Family Medicine; ATTEND Family Medicine
DX: J81.0 Acute pulmonary edema (principal); N18.6 End stage renal disease; I13.2 Hypertensive heart and chronic kidney disease with heart failure and with stage 5 chronic kidney disease, or end stage renal disease; I42.9 Cardiomyopathy, unspecified; D63.1 Anemia in chronic kidney disease; I50.41 Acute combined systolic (congestive) and diastolic (congestive) heart failure; I34.0 Nonrheumatic mitral (valve) insufficiency; I35.1 Nonrheumatic aortic (valve) insufficiency; M19.90 Unspecified osteoarthritis, unspecified site; M10.9 Gout, unspecified; N40.0 Benign prostatic hyperplasia without lower urinary tract symptoms; K21.9 Gastro-esophageal reflux disease without esophagitis; R09.02 Hypoxemia; R53.1 Weakness; Z11.59 Encounter for screening for other viral diseases; Z84.1 Family history of disorders of kidney and ureter; Z79.899 Other long term (current) drug therapy; Z99.2 Dependence on renal dialysis; Z88.3 Allergy status to other anti-infective agents; Z82.49 Family history of ischemic heart disease and other diseases of the circulatory system
CPT/HCPCS: 36415; 71045; 71046; 71250; 80048; 80053; 81001; 82803; 83605; 84484; 85025; 87040; 87635; 90945; 90947; 93005; 93010; 93306; 96365; 96375; 99285; C9803; J0456; J0696; J1100; J3490